=== PATIENT | female | born 1960 | race Caucasian/White ===

== ENCOUNTER 2017-10-19 13:56 | Inpatient (IN) ==
--- NOTE | 2017-10-19 14:33 | Emergency Department Report ---
General Adult HPI - General Chief complaint: Dizziness Stated complaint: N/V & Dizziness Time Seen by Provider: 10/19/17 14:26 Source: patient Mode of arrival: ambulatory Limitations: no limitations - History of Present Illness HPI narrative: 56 yo female who lives in [facility] but who has been camping at [place] since Day presents to ED w/ n/v for the past few days. Severe R shoulder pain with radiation down the R arm. Can't keep her pain meds down. Has OA and RA. Dizziness - room is spinning - causes n/v. Bit by a tick a week ago. Can't keep anything down for a couple days. Coughing this week. Wheezing in L lung today. Reports low grade fever this week. Feels very week. Requests hospitalization. Is scared b/c she doesn't know what is wrong with her. - Related Data Home Medications Medication Instructions Recorded Confirmed Baclofen [Lioresal] 10 mg PO TID PRN 10/19/17 10/19/17 Dexlansoprazole [Dexilant] 60 mg PO DAILY 10/19/17 10/19/17 Gabapentin [Neurontin] 800 mg PO TID 10/19/17 10/19/17 Ondansetron [Ondansetron Odt] 8 mg PO TID PRN 10/19/17 10/19/17 Oxycodone/Apap 10/325 [Percocet 1 tab PO Q6H PRN 10/19/17 10/19/17 10/325] Zolpidem [Ambien] 10 mg PO HS 10/19/17 10/19/17 Allergies Allergy/AdvReac Type Severity Reaction Status Date / Time Penicillins Allergy Unknown HIVES Verified 10/19/17 14:59 prednisone Allergy Unknown UPSET Verified 10/19/17 14:59 STOMACH Sulfa (Sulfonamide Allergy Unknown HIVES Verified 10/19/17 14:59 Antibiotics) Review of Systems All systems: reviewed and negative except as stated (n/v, dizziness, R shoulder pain - keeps her up at night, wheezing) PFSH Medical History Updates: COPD, RA/OA, GERD, osteoporosis Surgical History: hyst with [facility], JOSE JUAN, appy Family History: F - - heart probs M - - heart probs brother - heart probs, DM on insulin sister - Type 2 DM brother - from heart probs. Had pacer. - Social History Smoking status: Current every day smoker (1/2ppd) Substance use type: other (uses CBD through food for pain - "occasional" - not daily use.) Alcohol intake frequency: does not drink Household members: none Current occupational status: disabled Current residence: Apartment/Private Home Social history: Angela Mathew, ([employer] or PA?) at [facility] ([facility])- rheum Dr. Valdez ([facility]) [facility] [place] [facility] . Physical Exam - Limitations Limitations: no limitations - General General appearance: in no apparent distress - Normal Exams: Head:: Normocephalic without trauma Eyes:: Pupils are PERRLA w/ EOMI Neck:: Full range of motion, without adenopathy Cardiovascular:: capillary refill Abdomen:: soft, non-tender, non-distended Integumentary:: No rashes Neurological:: Patient is alert, and oriented, exams w/o gross deficits Psychiatric:: Patient exhibits, appropriate attention - Respiratory Respiratory exam: Present: wheezes (diffuse insp and exp prior to Duoneb tx) - Cardiovascular Cardiovascular exam: Present: tachycardia (mild) - Skin Skin exam: Present: other (L hip -slightly erythematous, raised area where she pulled off tick.) Medical Decision Making - [facility] Narrative Medical decision making narrative: Patient received a liter of normal saline in the ER. She was started on Levaquin 750 mg IV for pneumonia. She was given Zofran IV and this helped with her nausea. She is also given 1 dose of meclizine for her vertigo. Duoneb tx given. CXR showed pneumonia vs tumor. Admit to hospitalist service for further tx/monitoring and CT chest. - Lab Data Result diagrams: 10/22/17 05:48 10/22/17 05:48 Disposition Clinical Impression: Pneumonia Disposition: 02 To [facility] Acute Care Condition: Stable Time of Disposition: 16:05 - Seen By: midlevel
[2017-10-19] MEDS ORDERED: ONDANSETRON 4 MG/2 ML INJECTION IVP ONE (14:35)
[2017-10-19] MEDS ORDERED: NS 1,000 ML IV ONE (14:35)
--- OUTSIDE RECORDS SUMMARY | 2017-10-19 14:43 | External Medical Summary ---
:1960 Author Name GENERATED, SYSTEM Care Team Providers Name Role Phone GRACIE SERRANO KIMBERLEY Primary Care Provider [phone] Reason For Visit Chief Complaint 625.9, FEMALE PELVIC PAIN Social History Functional Status Vital Signs Results Problems Encounter Diagnosis No relevant problems exist. Additional Problems Arthroplasty of Knee Comment:Problem resolved by [facility] Workflow upon Discharge , Status:Resolved.Chronic Obstructive Lung Disease Comment:Problem resolved by [facility] Workflow upon Discharge, Status:Resolved.Pneumonia Comment:Problem resolved by [facility] Workflow upon Discharge, Status:Resolved. Encounters Encounter Diagnosis No relevant problems exist. Plan of Care Procedures Completed , on 09/05/2011 12:00 AM Immunizations No immunizations administered or ordered. Hospital Course Hospital Discharge Instructions Allergies, Adverse Reactions, Alerts Escitalopram oxalate causes Abdominal pain, vomiting.Prednisone causes hard on stomach.Codeine causes severe nausea.Aspirin causes severe nausea.escitalopram causes unspecified.Latex causes Rash.Penicillins causes unspecified.Sulfa (Sulfonamide Antibiotics) causes unspecified.Latex Allergy has not been assessed.IV Contrast Allergy has not been assessed.No Known Food Allergies. Medication Medication reconciliation has not been performed.
--- OUTSIDE RECORDS SUMMARY | 2017-10-19 14:43 | External Medical Summary ---
:1960 Author Organization [employer] Care Team Providers Name Role Phone Cris Mathew Provider Role Unavailable Allergies, Adverse Reactions, Alerts Substance Reaction Event Type SULFA Info Not Available Drug Allergy PredniSONE Info Not Available Drug Allergy Penicillin G Benzathine Info Not Available Drug Allergy Codeine Sulfate Info Not Available Drug Allergy Problems Problem Type Condition Code Onset Dates Condition Status Assessment Spinal stenosis of lumbar region M48.06 Active Problem Spinal stenosis of lumbar region M48.06 Active Problem Tobacco use 305.1 Active Problem DDD (degenerative disc disease), M51.36 Active lumbar Assessment Herpes zoster B02.9 Active Assessment DDD (degenerative disc disease), M51.36 Active lumbar Problem COPD (chronic obstructive pulmonary 496 Active disease) Problem Depression 311 Active Medications Medication Code Code Instructions Start End Status Dosage System Date Date Percocet [facility] [address]-12 10-325 MG 1 tablet as Orally every 6 needed hrs Ambien [facility] [address]-25 10 MG Orally at 1 tablet bedtime Zofran ODT [facility] [address]-18 8 MG Orally August as directed every 6 to 8 2014 hours Lamotrigine ND 0 200 MG Orally 1 tablet once a day Ibuprofen [facility] [address]-20 800 MG Orally 1 tablet Three times a day Lidocaine [facility] [address]-43 5 % Externally Mar 10, 1 patch to Once a day 2014 skin remove after 12 hours Tizanidine HCl [facility] 85379689162 4 MG Orally 2 tablets twice a day HydrOXYzine [facility] [address]-54 50 MG Orally not defined HCl three times daily Cymbalta [facility] [address]-11 30 MG Orally 1 capsule Twice a day Lyrica [facility] [address]-45 150 MG Orally Jan 14, 1 capsule Twice a day 2014 Latuda [facility] [address]-63 60 MG Orally 1 tablet Once a day with food Procedures Procedure Coding System Code Date THERPROPHDIAG INJ, SCIM CPT-4 22561 Mar 10, 2015 OFFICE VISIT EST PATIENT LEVEL 3 CPT-4 61398 Mar 10, 2015 METHYLPREDNISOLONE 80 MG INJ CPT-4 J1040 Mar 10, 2015 Vital Signs Date/Time: Mar 10, 2015 BMI 20.26 Index Weight 114.4 lbs Height 63 in Blood Pressure Diastolic 64 mm Hg Blood Pressure Systolic 102 mm Hg Cardiac Monitoring Heart Rate 84 /min Temperature 98.0 F Respiratory Rate 20 /min Results No Known Results Summary Purpose eClinicalWorks Submission
--- OUTSIDE RECORDS SUMMARY | 2017-10-19 14:43 | External Medical Summary ---
:1960 Author Organization [employer] Care Team Providers Name Role Phone Cris Mathew Provider Role Unavailable Allergies No Known Allergies Problems Problem Type Condition Code Onset Dates Condition Status Problem Iron deficiency anemia D50.9 Active Problem Hepatitis C B19.20 Active Problem Depression F32.9 Active Problem Spinal stenosis of lumbar region M48.06 Active Problem COPD (chronic obstructive pulmonary J44.9 Active disease) Problem DDD (degenerative disc disease), M51.36 Active lumbar Medications Medication Code System Code Instructions Start Date End Date Status Dosage Percocet [facility] [address]97-542 10-325 MG Orally Sept 13, Oct , 1 tablet as 8-30 every 12 hours 2015 2015 needed Results No Known Results Summary Purpose eClinicalWorks Submission
--- OUTSIDE RECORDS SUMMARY | 2017-10-19 14:43 | External Medical Summary ---
:1960 Author Organization [employer] Care Team Providers Name Role Phone Sherry Garner Provider Role Unavailable Allergies No Known Allergies Problems Problem Type Condition ICD-9 Code Onset Dates Condition Status Problem Tobacco use 305.1 Active Problem COPD (chronic obstructive 496 Active pulmonary disease) Problem DDD (degenerative disc disease) 722.6 Active Problem Depression 311 Active Medications No Known Medications Results No Known Results Summary Purpose eClinicalWorks Submission
--- OUTSIDE RECORDS SUMMARY | 2017-10-19 14:43 | External Medical Summary ---
:1960 Author Organization [employer] Care Team Providers Name Role Phone Cris Mathew Provider Role Unavailable Allergies No Known Allergies Problems Problem Type Condition ICD-9 Code Onset Dates Condition Status Problem Tobacco use 305.1 Active Problem COPD (chronic obstructive 496 Active pulmonary disease) Problem DDD (degenerative disc disease) 722.6 Active Problem Depression 311 Active Medications Medication Code System Code Instructions Start Date End Date Status Dosage Percocet [facility] 26875-440 7.5-325 MG Orally October 27, November 11, 1 tablet as 2-72 every 6 hrs 2014 2014 needed Results No Known Results Summary Purpose eClinicalWorks Submission
--- OUTSIDE RECORDS SUMMARY | 2017-10-19 14:43 | External Medical Summary ---
:1960 Author Organization [employer] Care Team Providers Name Role Phone Cris Mathew Provider Role Unavailable Allergies No Known Allergies Problems Problem Type Condition Code Onset Dates Condition Status Problem COPD (chronic obstructive pulmonary J44.9 Active disease) Problem Iron deficiency E61.1 Active Problem Hepatitis C B19.20 Active Problem Depression 311 Active Problem DDD (degenerative disc disease), M51.36 Active lumbar Problem Spinal stenosis of lumbar region M48.06 Active Medications No Known Medications Results No Known Results Summary Purpose eClinicalWorks Submission
--- OUTSIDE RECORDS SUMMARY | 2017-10-19 14:43 | External Medical Summary ---
:1960 Author Organization [employer] Care Team Providers Name Role Phone Sherry Garner Provider Role Unavailable Allergies, Adverse Reactions, Alerts Substance Reaction Event Type SULFA Info Not Available Drug Allergy PredniSONE Info Not Available Drug Allergy Penicillin G Benzathine Info Not Available Drug Allergy Codeine Sulfate Info Not Available Drug Allergy Problems Problem Type Condition ICD-9 Code Onset Dates Condition Status Problem Tobacco use 305.1 Active Problem COPD (chronic obstructive 496 Active pulmonary disease) Problem DDD (degenerative disc disease) 722.6 Active Assessment RUQ abdominal pain 789.01 Active Assessment Nausea & vomiting 787.01 Active Problem Depression 311 Active Assessment Dysuria 788.1 Active Medications Medication Code Code Instructions Start End Date Status Dosage System Date Zofran ODT [facility] 41368-93 8 MG Orally August 22, as directed 70-00 every 6 to 8 2015 hours Lamotrigine NDC 0 200 MG Orally 1 [place] [address]-12 10 MG Orally at 1 tablet 21-31 [place] [address]-03 not defined 90-52 [place] [address]-81 150 MG Orally August 22, 1 capsule 16-41 Twice a day 2014 Latuda [facility] 80990-51 60 MG Orally 1 tablet 06-01 Once [place] [address]-96 100-50 MCG/DOSE 1 puff 95-00 [place] [address]-26 30 MG Orally 1 capsule 43-56 [place] [address]-79 600 MG Orally 1 tablet 58-00 Three times a day Procedures Procedure Coding System Code Date URINE CULTURE/COLONY COUNT.AMS CPT-4 99668 October 17, 2014 OFFICE VISIT EST PATIENT LEVEL 3 CPT-4 56221 October 17, 2014 URINALYSIS NONAUTO WO SCOPE CPT-4 64515 October 17, 2014 Vital Signs Date/Time: October 17, 2014 BMI 20.83 Index Weight 117.6 lbs Height 63 in Blood Pressure Diastolic 74 mm Hg Blood Pressure Systolic 136 mm Hg Cardiac Monitoring Heart Rate 80 /min Temperature 98.3 F Respiratory Rate 20 /min Results Name Result Date Reference Range Unit Abnormality Flag Urinalysis (UA) Summary Purpose eClinicalWorks Submission
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
--- OUTSIDE RECORDS SUMMARY | 2017-10-19 14:43 | External Medical Summary | Summary of Care ---
:1960 Author Name Haris Del Castillo M.D. Address [address] [place], [place] [id number] Care Team Providers Name Role Phone Sukhjinder Figueroa M.D. Unavailable Unavailable Dominic Valdovinos Primary Care Provider Unavailable Unavailable Unavailable Unavailable Functional Status Functional Status Health Issues Name Dates Details Functional status health issues are not documented Status: Cognitive Status Health Issues Name Dates Details Cognitive status health issues are not documented Status: Problems Name Dates Details Elbow pain (719.42, M25.529) Status: Active Joint pain, knee (719.46, M25.569) Status: Active Coughing blood (786.30, R04.2) Status: Active Pain in hand (729.5, M79.643) Status: Active Nausea (787.02, R11.0) Status: Active Abdominal pain (789.00, R10.9) Status: Active Osteoporosis (733.00, M81.0) Status: Active Rheumatoid arthritis (714.0, M06.9) Status: Active Tendonitis (726.90, M77.9) Status: Active Lateral epicondylitis (726.32, M77.10) Status: Active Acute bronchitis (466.0, J20.9) Status: Active Hypocalcemia (275.41, E83.51) Status: Active Chronic obstructive pulmonary disease (496, J44.9) Status: Active Medial epicondylitis (726.31, M77.00) Status: Active 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, 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: Active Cerumen impaction (380.4, H61.20) Status: Active 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, 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 Compression fracture of thoracic vertebra (805.2, S22.000A) Status: Active Bipolar disorder (296.80, F31.9) Status: Active High risk medication use (V58.69, Z79.899) Status: Active Rheumatoid arthritis (714.0, M06.9) Status: Active Synovitis of hip (727.09, M65.9) Status: Active Aftercare following joint replacement (V54.81, Z47.1) Status: Active Fatigue (780.79, R53.83) Status: Active Hypercholesterolemia (272.0, E78.0) Status: Active S/P knee replacement (V43.65, Z96.659) Status: Active Cervicalgia (723.1, M54.2) Status: Active Muscle spasm (728.85, M62.838) Status: Active Head ache (784.0, R51) Status: Active Back pain (724.5, M54.9) Status: Active Chronic pain (338.29, G89.29) Status: Active Hip joint pain (719.45, M25.559) Status: Active Hip pain (719.45, M25.559) Status: Active Pain in left hip (719.45, M25.552) Status: Active Lower back pain (724.2, M54.5) Status: Active Chest pain (786.50, R07.9) Status: Active Tobacco abuse counseling (V65.42, Z71.6) Status: Active Arthralgia of multiple sites (719.49, M25.50) Status: Active Bursitis of hip (726.5, M70.70) Status: Active Knee pain, right (719.46, M25.561) Status: Active Anserine bursitis (726.61, M71.50) Status: Active Osteoarthritis of knee (715.96, M17.9) Status: Active Medications Name Dates Details Abilify 15 MG Oral Tablet Refills: 0 Sukhjinder Figueroa M.D. Started 01-Jul-2008 ActiveZolpidem Tartrate 10 MG Oral Tablet TAKE 1 TABLET AT BEDTIME NEEDED FOR SLEEP. Quantity: 30 Refills: 1 Started 28-Apr-2011 ActiveIbuprofen 600 MG Oral Tablet TAKE 1 TABLET TWICE A DAY WITH MEALS Quantity: 60 Refills: 0 Sukhjinder Figueroa M.D. Started 30-May-2011 ActiveVoltaren 1 % Transdermal Gel Apply 4 grams to affected area QID Quantity: 5 Refills: 0 Sukhjinder Figueroa M.D. Started 07-Mar-2013 [id number] GM Tube HydrOXYzine HCl - 10 MG Oral Tablet Take 1 tablet daily Refills: 0 Sukhjinder Figueroa M.D. Started 07-Mar-2013 ActiveGabapentin 300 MG Oral Capsule TAKE 2 CAPSULES 3 TIMES DAILY. Refills: 0 Started 13-May-2014 ActiveTiZANidine HCl - 4 MG Oral Tablet TAKE 1 TABLET 3 TIMES DAILY NEEDED. Refills: 0 Started 13-May-2014 Active Allergies and Adverse Reactions Name Dates Details TBE Status: Active Codeine Derivatives Status: Active Ibuprofen TABS Status: Active Penicillins Status: Active Sulfa Drugs Status: Active Past Medical History Name Dates Details Aftercare following joint replacement (V54.81, Z47.1) Status: Active Procedures Procedure Dates Details History of Knee Arthroscopy With Limited Completed:22-Jun-2011 Synovectomy History of Appendectomy History of Hysterectomy CP Echo Ordered:31-Mar-2014 ORTHO KNEE RIGHT (3 VIEWS ONLY) Ordered:15-May-2014 ORTHO KNEE LEFT Ordered:15-May-2014 Immunization Name Dates Details Fluzone Quadrivalent 0.5 ML Intramuscular Suspension Administered on:Feb-2014 Lot #: [id number] Family History Unknown Family Member Name Dates Details Family history of cardiac disorder (V17.49, Z82.49) Comments: Family History Status: Active Mother Name Dates Details Family history of Status: Active Family history of cardiac disorder (V17.49, Z82.49) Status: Active Father Name Dates Details Family history of Status: Active Social History Name Dates Details Smoking StatusCurrent every day smoker Vital Signs Date Test Result Details 13-May-2014 10:03 BP Systolic 122 mm[Hg] Status: BP Diastolic 68 mm[Hg] Status: Heart Rate 72 /min Status: Weight 126 lb Status: Height 63 in Status: Body Mass Index Calculated 22.32 kg/m2 Status: Body Surface Area Calculated 1.59 m2 Status: Results Date Description Value Details Results not documented Plan of Care Planned Observations Name Dates Details Planned Goals not documented Goal Planned Encounters Appointment; Provider: Dominic Pierce On 21-Dec-2017 09:00 Appointment; Provider: Sukhjinder Figueroa On 28-Aug-2014 10:15 Appointment; Provider: Sukhjinder Figueroa On 23-May-2014 09:45 Appointment; Provider: Dominic Pierce On 22-May-2014 09:15 Appointment; Provider: Dominic Pierce On 05-Sep-2011 08:00 Appointment; Provider: Elisha Ruvalcaba On 16-Sep-2009 07:00 Appointment; Provider: Elisha Ruvalcaba On 28-Aug-2009 09:30 Appointment; Provider: Florentin Redding On 11-Aug-2008 14:15 Appointment; Provider: Florentin Redding On 28-Jul-2008 14:15 Appointment; Provider: Florentin Redding On 14-Jul-2008 14:15 Appointment; Provider: Rodrigo Lopez On 30-Jun-2007 07:00 Instructions Instructions not documented Encounters Appointment; Dominic Pierce On 15-May-2014 Encounter Diagnosis: Problem not documented 14:30 Appointment; Sukhjinder Figueroa On 13-May-2014 Encounter Diagnosis: Problem not documented 09:45 Appointment; Sukhjinder Figueroa On 01-Apr-2014 Encounter Diagnosis: Problem not documented 14:00 Appointment; Haris Del Castillo On 26-Mar-2014 Encounter Diagnosis: Problem not documented 10:15 Appointment; Sukhjinder Figueroa On 27-Feb-2014 Encounter Diagnosis: Problem not documented 14:00 Appointment; Dominic Pierce On 18-Feb-2014 Encounter Diagnosis: Problem not documented 10:30 Appointment; Gallo Krause On 14-Feb-2014 Encounter Diagnosis: Problem not documented 08:15 Appointment; Sukhjinder Figueroa On 14-Feb-2014 Encounter Diagnosis: Problem not documented 07:45 Appointment; Sukhjinder Figueroa On Encounter Diagnosis: Problem not documented 09:15 Appointment; Sukhjinder Figueroa On Encounter Diagnosis: Problem not documented 09:45 Appointment; Eleanor Carlton On Encounter Diagnosis: Problem not documented 16:30 Appointment; Eleanor Carlton On Encounter Diagnosis: Problem not documented 08:30 Appointment; Kerry Altman On 04-Oct-2013 Encounter Diagnosis: Problem not documented 09:30 Appointment; Sukhjinder Figueroa On 02-Oct-2013 Encounter Diagnosis: Problem not documented 10:00 Appointment; Kerry Altman On 25-Sep-2013 Encounter Diagnosis: Problem not documented 11:00 Appointment; Sukhjinder Figueroa On 23-Sep-2013 Encounter Diagnosis: Problem not documented 14:45 Appointment; Kerry Altman On 20-Sep-2013 Encounter Diagnosis: Problem not documented 07:30 Appointment; Kerry Altman On 18-Sep-2013 Encounter Diagnosis: Problem not documented 08:30 Appointment; Kerry Altman On 11-Sep-2013 Encounter Diagnosis: Problem not documented 10:00 Appointment; Dominic Pierce On 22-Aug-2013 Encounter Diagnosis: Problem not documented 13:45 Appointment; Sukhjinder Figueroa On 01-Jul-2013 Encounter Diagnosis: Problem not documented 14:30 Appointment; Dominic Pierce On 21-May-2013 Encounter Diagnosis: Problem not documented 13:00 Appointment; Eleanor Carlton On 30-Apr-2013 Encounter Diagnosis: Problem not documented 09:30 Appointment; Rafi Modi On 23-Apr-2013 Encounter Diagnosis: Problem not documented 14:30 Appointment; Sukhjinder Figueroa On 23-Apr-2013 Encounter Diagnosis: Problem not documented 13:15 Appointment; Sukhjinder Figueroa On 16-Apr-2013 Encounter Diagnosis: Problem not documented 12:30 Appointment; Rafi Modi On 10-Apr-2013 Encounter Diagnosis: Problem not documented 14:30 Appointment; Dominic Pierce On 09-Apr-2013 Encounter Diagnosis: Problem not documented 11:00 Appointment; Dominic Pierce On 26-Mar-2013 Encounter Diagnosis: Problem not documented 09:45 Appointment; Freedom Douglass On 14-Mar-2013 Encounter Diagnosis: Problem not documented 09:00 Appointment; Sukhjinder Figueroa On 07-Mar-2013 Encounter Diagnosis: Problem not documented 10:45 Appointment; Dominic Pierce On 08-Jan-2013 Encounter Diagnosis: Problem not documented 16:00 Appointment; Sukhjinder Figueroa On 25-Dec-2012 Encounter Diagnosis: Problem not documented 10:30 Appointment; Dominic Pierce On 20-Dec-2012 Encounter Diagnosis: Problem not documented 10:45 Appointment; Sukhjinder Figueroa On 18-Dec-2012 Encounter Diagnosis: Problem not documented 07:30 Appointment; Sukhjinder Figueroa On 17-Dec-2012 Encounter Diagnosis: Problem not documented 08:45 Appointment; Sukhjinder Figueroa On 17-Sep-2012 Encounter Diagnosis: Problem not documented 10:45 Appointment; Freedom Douglass On 27-Aug-2012 Encounter Diagnosis: Problem not documented 13:45 Appointment; Sukhjinder Figueroa On 16-Aug-2012 Encounter Diagnosis: Problem not documented 08:30 Appointment; Sukhjinder Figueroa On 26-Jul-2012 Encounter Diagnosis: Problem not documented 09:30 Appointment; Sukhjinder Figueroa On 10-Jul-2012 Encounter Diagnosis: Problem not documented 10:15 Appointment; Sukhjinder Figueroa On 23-May-2012 Encounter Diagnosis: Problem not documented 13:45
--- OUTSIDE RECORDS SUMMARY | 2017-10-19 14:43 | External Medical Summary ---
[...] ICD-9 Code Onset Dates Condition Status Problem COPD (chronic obstructive 496 Active pulmonary disease) Problem Depression 311 Active Problem Tobacco use 305.1 Active Assessment Tobacco use 305.1 Active Assessment Chronic pain 338.29 Active Assessment Fibromyalgia 729.1 Active Medications Medication Code Code Instructions Start End Date Status Dosage System Date Ambien [facility] 38028-13 10 MG Orally at 1 tablet -31 bedtime Lamotrigine NDC 0 200 MG Orally 1 tablet once a day Ibuprofen NDC 03382-28 800 MG Orally 1 tablet 62-00 Three times [place] [address]-17 50 MG Orally not defined 62-01 [place] [address]-76 60 MG Orally 1 tablet 06-01 Once a day with food Zofran ODT NDC 61465-49 8 MG Orally August 22, as directed 70-00 every 6 to 8 2015 [place] [address]-51 4 MG Orally 1 tablet as 00-10 twice [place] [address]-20 10-325 MG Orally Jan 05, Jan 15, 1 tablet as 18-30 every 6 hrs 2014 2014 [place] [address]-40 30 MG Orally 1 capsule 40-01 [place] [address]-87 150 MG Orally Jan 14, 1 capsule 16-41 Twice a day 2014 Nicoderm CQ NDC 44278-35 21 MG/24HR Jan 14, Feb 13, 1 patch to 45-01 Transdermal Once 2014 2014 [place] [address]-21 4 MG Jan 14, Feb 13, 1 piece as Starter Kit 58-07 Mouth/Throat 24 2014 2014 needed time(s) a day Procedures Procedure Coding System Code Date OFFICE VISIT EST PATIENT LEVEL 3 CPT-4 66983 Jan 14, 2015 Vital Signs Date/Time: Jan 14, 2015 BMI 19.94 Index Weight 112.6 lbs Height 63 in Blood Pressure Diastolic 72 mm Hg Blood Pressure Systolic 124 mm Hg Cardiac Monitoring Heart Rate 78 /min Temperature 98.4 F Respiratory Rate 18 /min Results No Known Results Summary Purpose eClinicalWorks Submission
--- OUTSIDE RECORDS SUMMARY | 2017-10-19 14:43 | External Medical Summary | Summary of Care ---
:1960 Author Name Haris Del Castillo M.D. Address [address] [place], [place] [id number] Care Team Providers Name Role Phone Sukhjinder [...] Refills: 0 Sukhjinder Figueroa M.D. Started 07-Mar-2013 [id number] GM Tube HydrOXYzine HCl - 10 MG [...] ML Intramuscular Suspension Administered on:Feb-2014 Lot #: [id number] Family History Unknown Family Member Name Dates [...]
[2017-10-19] MEDS: SALINE FLUSH 10ml SYRINGE IVF PRN ×2 (14:44→17:12)
--- OUTSIDE RECORDS SUMMARY | 2017-10-19 14:44 | External Medical Summary ---
[...] Condition Code Onset Dates Condition Status Assessment Encounter for immunization Z23 Active Assessment COPD (chronic obstructive pulmonary J44.9 Active disease) Assessment Iron deficiency E61.1 Active Assessment DDD (degenerative disc disease), M51.36 Active lumbar Problem COPD (chronic obstructive pulmonary J44.9 Active disease) Problem Iron deficiency E61.1 Active Problem Hepatitis C B19.20 Active Problem Depression 311 Active Assessment Hepatitis C B19.20 Active Problem DDD (degenerative disc disease), M51.36 Active lumbar Problem Spinal stenosis of lumbar region M48.06 Active Medications Medication Code Code Instructions Start End Status Dosage System Date Date Percocet [facility] [address]-63 10-325 MG Jan 05Jan 1 tablet as Orally every 2014 10, needed hrs 2014 Ibuprofen [facility] [address]-58 800 MG Orally 1 tablet Three times a day Cymbalta [facility] [address]-88 30 MG Orally 1 capsule Twice a day Lidocaine [facility] [address]-84 5 % Externally Mar 10, 1 patch to Once a day 2014 skin remove after 12 hours Zofran ODT [facility] [address]-97 8 MG Orally August as directed every 6 to 8 , 2014 hours Latuda [facility] [address]-58 60 MG Orally 1 tablet Once a day with food Lamotrigine ND 0 200 MG Orally 1 tablet once a day HydrOXYzine [facility] [address]-84 50 MG Orally not defined HCl three times daily Lyrica [facility] [address]-24 150 MG Orally Jan 14, 1 capsule Twice a day 2014 Ventolin HFA [facility] [address]-47 108 (90 Base) Dec 07, 2 puffs as MCG/ACT 2014 needed Inhalation every 4 hrs Tizanidine HCl [facility] 15455336532 4 MG Orally 2 tablets twice a day Percocet [facility] [address]-01 10-325 MG 1 tablet as Orally every 6 needed hrs Ambien [facility] [address]-09 10 MG Orally at 1 tablet bedtime Procedures Procedure Coding System Code Date *Fluzone, quad, 3+ yrs, 0.5mL, any insurance CPT-4 79512 Apr 13, 2015 IMMUNIZATION ADMIN CPT-4 80531 Apr 13, 2015 OFFICE VISIT EST PATIENT LEVEL 3 CPT-4 41968 Apr 13, 2015 IMMUNIZATION ADMIN, EACH ADD CPT-4 01723 Apr 13, 2015 *Pneumococcal 23 valent, Adult only (PPV23) CPT-4 27448 Apr 13, 2015 Vital Signs Date/Time: Apr 13, 2015 BMI 18.49 Index Weight 104.4 lbs Height 63 in Blood Pressure Diastolic 72 mm Hg Blood Pressure Systolic 126 mm Hg Cardiac Monitoring Heart Rate 82 /min Temperature 98.8 F Respiratory Rate 18 /min Results Name Result Date Reference Range Unit Abnormality Flag OTHER-IMMUNIZATION ADMIN, EACH ADD Immunizations Vaccine Administration Date *Fluzone, quad, 3+ yrs, 0.5mL, any insurance Apr 13, 2015 *Pneumococcal 23 valent, Adult only (PPV23) Apr 13, 2015 Summary Purpose eClinicalWorks Submission
--- OUTSIDE RECORDS SUMMARY | 2017-10-19 14:44 | External Medical Summary ---
[...] ICD-9 Code Onset Dates Condition Status Problem Depression 311 Active Assessment COPD (chronic obstructive 496 Active pulmonary disease) Problem COPD (chronic obstructive 496 Active pulmonary disease) Assessment Pneumonia 486 Active Assessment Depression 311 Active Medications Medication Code Code Instructions Start End Date Status Dosage System Date Nicotine Step 1 [facility] 73159-86 21 MG/24HR May 29, Jun 28, Active 1 patch to 989 Transdermal Once 2014 2014 skin a day Albuterol ND 0 Active not defined Advair Diskus [facility] 66562-75 100-50 MCG/DOSE Active 1 puff 95-00 [place] [address]-50 10 MG Orally at Active 1 tablet 21-31 bedtime Duloxetine HCl [facility] 10768-17 30 MG Orally Active 1 capsule 43-56 [place] [address]-07 200 MG Orally May 29, Jun 12, Active 1 capsule 48-01 Three times a 2014 2014 [place] [address]-42 600 MG Orally Active 1 tablet 58-00 Three times a day Lamotrigine ND 0 200 MG Orally Active 1 tablet [place] [address]-75 4 MG Orally Active 2 tablets 00-10 [place] [address]-37 300 MG Orally Active 2 tablets 39-19 twice a day Latuda [facility] 86148-37 60 MG Orally Active 1 tablet 06-01 Once a day with food Cipro NDC 34210-52 500 MG Orally Active 1 tablet 67-01 Twice a day Procedures Procedure Coding System Code Date COMPLETE CBC W/AUTO DIFF WBC.[facility] CPT-4 93463 May 29, 2014 Metabolic Panel Total Ca.[facility] CPT-4 98058 May 29, 2014 OFFICE VISIT NEW PATIENT LEVEL 2 CPT-4 57384 May 29, 2014 ROUTINE VENIPUNCTURE CPT-4 96603 May 29, 2014 Vital Signs Date/Time: May 29, 2014 BMI 21.47 Index Weight 121.2 lbs Height 63 in Blood Pressure Diastolic 76 mm Hg Blood Pressure Systolic 116 mm Hg Cardiac Monitoring Heart Rate 80 /min Temperature 98.1 F Oximetry 97 % Respiratory Rate 20 /min Results Name Result Date Reference Range Unit Venipuncture Summary Purpose eClinicalWorks Submission
--- OUTSIDE RECORDS SUMMARY | 2017-10-19 14:44 | External Medical Summary ---
:1960 Author Organization [facility] Address [address] [place], [place] [address] Care Team Providers Name Role Phone Holly Mathewley Unavailable Unavailable PROBLEMS Type Condition ICD9-CM Code HEL48-UE Code Onset Condition SNOMED Code Dates Status Problem Spinal stenosis M48.06 Active 43462352 of lumbar region Problem COPD (chronic J44.9 Active 64244837 obstructive pulmonary disease) Problem DDD (degenerative M51.36 Active 26262112 disc disease), lumbar Problem Fibromyalgia M79.7 Active 072137778 Problem GERD K21.9 Active 393768516 (gastroesophageal reflux disease) Problem Iron deficiency D50.9 Active 56531781 anemia Problem Hepatitis C B19.20 Active 46560766 Problem Cigarette F17.210 Active 454608907 nicotine dependence Problem Depression F32.9 Active 539470801 ALLERGIES Unknown Allergies SOCIAL HISTORY No smoking Hx information available PLAN OF CARE VITAL SIGNS MEDICATIONS Unknown Medications RESULTS No Results PROCEDURES No Known procedures IMMUNIZATIONS No Known Immunizations
--- OUTSIDE RECORDS SUMMARY | 2017-10-19 14:44 | External Medical Summary ---
:1960 Author Organization [facility] Address [address], [place] [address] Care Team Providers Name Role Phone Cris Mathew Unavailable Unavailable PROBLEMS ALLERGIES No Information ENCOUNTERS IMMUNIZATIONS No Known Immunizations SOCIAL HISTORY No smoking Hx information available REASON FOR VISIT PLAN OF CARE VITAL SIGNS MEDICATIONS Unknown Medications RESULTS No Results PROCEDURES No Known procedures INSTRUCTIONS MEDICATIONS ADMINISTERED No Known Medications MEDICAL (GENERAL) HISTORY
--- OUTSIDE RECORDS SUMMARY | 2017-10-19 14:44 | External Medical Summary | Summary of Care ---
:1960 Author Name Berny Gallo Address [address] [place], [place] [address] Care Team Providers Name Role Phone Sukhjinder [...] Refills: 0 Sukhjinder Figueroa M.D. Started 07-Mar-2013 [id number] GM Tube HydrOXYzine HCl - 10 MG Oral Tablet Take 1 tablet daily Refills: 0 Sukhjinder Figueroa M.D. Started 07-Mar-2013 ActiveGabapentin 300 MG Oral Capsule TAKE 2 CAPSULES 3 TIMES DAILY. Refills: 0 Started 13-May-2014 ActiveTiZANidine HCl - 4 MG Oral Tablet TAKE 1 TABLET 3 TIMES DAILY NEEDED. Refills: 0 Started 13-May-2014 Active Allergies and Adverse Reactions Name Dates Details TBEC Status: Active Codeine Derivatives Status: Active Ibuprofen [...] ML Intramuscular Suspension Administered on:Feb-2014 Lot #: [id number] Family History Unknown Family Member Name Dates [...] Sukhjinder Figueroa On 28-Aug-2014 10:15 Appointment; Provider: Dominic Pierce On 05-Sep-2011 08:00 Appointment; Provider: Elisha Ruvalcaba On 16-Sep-2009 07:00 Appointment; Provider: Elisha Ruvalcaba On 28-Aug-2009 09:30 Appointment; Provider: Florentin Redding On 11-Aug-2008 14:15 Appointment; Provider: Florentin Redding On 28-Jul-2008 14:15 Appointment; Provider: Florentin Redding On 14-Jul-2008 14:15 Appointment; Provider: Rodrigo Lpoez On 30-Jun-2007 07:00 Instructions Instructions not documented [...]
--- OUTSIDE RECORDS SUMMARY | 2017-10-19 14:44 | External Medical Summary ---
:1960 Author Name [employer] Care Team Providers Name Role Phone GRACIE SERRANO KIMBERLEY Primary Care Provider [phone] Reason For Visit Chief Complaint LEFT FLANK PAIN Social History Functional Status Vital Signs Results Chemistry from 03/08/2015 7:45 [id number] MMOL/L (136-145 MMOL/L) POTASSIUM3.9 MMOL/L (3.5-5.1 MMOL/L) LFOBQCUD211 MMOL/L (98-107 MMOL/L) MFQ984.1 MMOL/L (21.0-32.0 MMOL/L) *ANION GAP9.9 MMOL/L (8.0-16.0 MMOL/L) BUN10 MG/DL (7-18 MG/DL) CREATININE1.06 MG/DL H (0.55-1.02 MG/DL) *BUN/CREATININE RATIO9.4 (9.1-17.0 ) ZTBANLT60 MG/DL (65-99 MG/DL) *GFR EST NON AFR IZINVHOK11 ML/MIN *GFRA EST AFR AMER70 ML/MIN CALCIUM9.7 MG/DL (8.5-10.1 MG/DL) BILIRUBIN TOTAL0.33 MG/DL (0.20-1.00 MG/DL) TOTAL PROTEIN8.3 GM/DL H (6.4-8.2 GM/DL) ALBUMIN3.7 GM/DL (3.4-5.0 GM/DL) *GLOBULIN4.6 GM/DL H (2.3-3.5 GM/DL) *A/G RATIO0.8 MG/DL L (1.5-2.2 MG/DL) ALK PHOS30 U/L L (46-116 U/L) ALT (SGPT)20 U/L (16-63 U/L) AST (SGOT)19 U/L (15-37 U/L) FTJMCTR20 U/L (25-115 U/L) LPPRGX60 U/L (73-393 U/L)Hematology from 03/08/2015 7:45 AMWBC7.5 X10e3/UL (3.6- 11.2 X10e3/UL) RBC4.25 X10e6/UL (3.63-4.92 X10e6/UL) HJOHYGNGKA38.9 G/DL (11.0-14.3 G/DL) DLIJUQIRLX64.2 % H (31.2-41.9 %) *MCV99.4 FL H (79.0-98.0 FL) *MCH32.8 PG (27.0-33.0 PG) *MCHC33.0 G/DL (32.0-36.0 G/DL) *RDW12.5 % (12.3-17.0 %) FQTQRVKZ658 X10e3/UL (159-386 X10e3/UL) *MPV7.6 FL (7.4-10.4 FL) AUTOMATED DIFFPERFORMED SEGS54.8 % *MRUSJCWTIMM98.2 % *MONOCYTES7.7 % *EOSINOPHILS3.0 % *BASOPHILS1.3 % *ABSOLUTE NEUTROPHILS4.10 X10e3/UL (1.80-7.80 X10e3/UL) *ABSOLUTE LYMPHOCYTES2.50 X10e3/UL (1.00-3.00 X10e3/UL) *ABSOLUTE MONOCYTES0.60 X10e3/UL (0.30-1.00 X10e3/UL) *ABSOLUTE EOSINOPHILS0.20 X10e3/UL (0.00-0.50 X10e3/UL) *ABSOLUTE BASOPHILS0.10 X10e3/UL (0.00-0.20 X10e3/UL)Urinalysis from 03/08/2015 8 :45 AM*URINE COLORYELLOW (STRAW/YELL/DK YELL ) *URINE APPEARANCECLEAR (CLEAR ) URINE PH6.0 (5.0-8.0 ) URINE SPECIFIC GRAVITY1.020 (<=1.005->=1.030 ) *URINE GLUCOSENEGATIVE MG/DL (NEGATIVE MG/DL) *URINE BILIRUBINNEGATIVE (NEGATIVE ) *URINE KETONESNEGATIVE MG/DL (NEGATIVE MG/DL) *URINE BLOODNEGATIVE (NEGATIVE ) *URINE PROTEINNEGATIVE MG/DL (NEGATIVE MG/DL) *URINE UROBILINOGEN0.2 EU/DL (0.2-1.0 EU/DL) *URINE NITRITESNEGATIVE (NEGATIVE ) *URINE LEUKOCYTESNEGATIVE (NEGATIVE )CT Scan from 03/08/2015 8:12 AMCT ABD/ PELVIS W/O CONTRASTHistory: Abdominal Pain . Left lower quadrant abdominal pain Priors: 11/27/2014 Findings: Abdomen Lung bases: Clear Liver: Normal density. No definable mass. Spleen: Normal. Pancreas: No discrete mass or inflammatory process. Gallbladder and biliary tract: No radiodense calculus or dilation. Adrenal glands: Normal. Kidneys: No nephrolithiasis. No Hydronephrosis. Urinary Bladder: Normal. Aorta: Normal in caliber. No periaortic lymphadenopathy. Bowel and Mesentery: Grossly normal. No findings of appendicitis. Ascites: None. Pelvis Lymphadenopathy: None. Reproductive: Unremarkable. Osseous Structures: No suspicious findings. Impression: Unremarkable CT scan of the abdomen and pelvis. Electronically signed by: Josemanuel Flor MD Dictated: 03/08/2015 08:23 Problems Encounter Diagnosis No relevant problems exist. [...]
--- OUTSIDE RECORDS SUMMARY | 2017-10-19 14:44 | External Medical Summary ---
:1960 Author Name [employer] Care Team Providers Name Role Phone GRACIE SERRANO KIMBERLEY Primary Care Provider [phone] Reason For Visit Chief Complaint 722.6,LUMBAR W/O CONTRAST Social History Functional Status Vital Signs Results [...]
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
--- OUTSIDE RECORDS SUMMARY | 2017-10-19 14:44 | External Medical Summary ---
:1960 Author Organization [employer] Care Team Providers Name Role Phone Cris Mathew Provider Role Unavailable Allergies No Known Allergies Problems Problem Type Condition Code Onset Dates Condition Status Problem Hepatitis C B19.20 Active Problem COPD (chronic obstructive pulmonary J44.9 Active disease) Problem Iron deficiency anemia D50.9 Active Problem Depression 311 Active Problem DDD (degenerative disc disease), M51.36 Active lumbar Problem Spinal stenosis of lumbar region M48.06 Active Medications Medication Code System Code Instructions Start Date End Date Status D[facility] [address] 10 MG Orally at 1 tablet -31 bedtime Results No Known Results Summary Purpose eClinicalWorks Submission
--- OUTSIDE RECORDS SUMMARY | 2017-10-19 14:44 | External Medical Summary ---
:1960 Author Name GENERATED, SYSTEM Care Team Providers Name Role Phone GRACIE SERRANO KIMBERLEY Primary Care Provider [phone] Reason For Visit Chief Complaint MIGRAINE Social History Functional Status Vital Signs Results [...] Hospital Discharge Instructions Allergies, Adverse Reactions, Alerts This section is artist's representative of the current allergy information, at the time of the CCD generation. In the case of regeneration of the CCD, the allergy information may not reflect the state of known allergies at the time of the CCD' s subject visit. Escitalopram oxalate causes Abdominal pain, vomiting.Prednisone causes hard on stomach.Codeine causes severe nausea.Aspirin causes severe nausea.escitalopram causes unspecified.Latex causes Rash.Penicillins causes unspecified.Sulfa (Sulfonamide Antibiotics) causes unspecified.IV Contrast Allergy has not been assessed.No Known Food Allergies. Medication Medication reconciliation has not been performed.
--- OUTSIDE RECORDS SUMMARY | 2017-10-19 14:44 | External Medical Summary ---
:1960 Author Organization [employer] Care Team Providers Name Role Phone Cris Mathew Provider Role Unavailable Allergies No Known Allergies Problems Problem Type Condition ICD-9 Code Onset Dates Condition Status Problem COPD (chronic obstructive 496 Active pulmonary disease) Problem Depression 311 Active Problem Tobacco use 305.1 Active Assessment Depression 311 Active Medications Medication Code Code Instructions Start End Date Status Dos[place] [address]-68 8 MG Orally August 22, as directed 70-00 every 6 to 8 2015 hours Lyrica NDC 56728-45 150 MG Orally August 22, 1 capsule 16-41 Twice a day 2014 Ibuprofen NDC 82530-46 800 MG Orally 1 tablet 62-00 [place] [address] 60 MG Orally 1 tablet 06-01 Once a day with food Cymbalta NDC 29661-68 30 MG Orally 1 capsule 40-01 Twice a day Lamotrigine NDC 0 200 MG Orally 1 [place] [address]-28 10-325 MG Orally Jan 05Jan 15, 1 tablet as 18-30 every 6 hrs 2014 2014 [place] [address] 10 MG Orally at 1 tablet 21-31 [place] [address] 50 MG Orally not defined 62-01 three times daily Procedures Procedure Coding System Code Date Behavior Intervention CPT-4 92837 Jan 05, 2015 Results No Known Results Summary Purpose eClinicalWorks Submission
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
--- OUTSIDE RECORDS SUMMARY | 2017-10-19 14:44 | External Medical Summary ---
[...] Instructions Start Date End Date Status [facility] [address] 10 MG Orally at 1 tablet -31 bedtime Results No Known Results Summary Purpose eClinicalWorks Submission
--- OUTSIDE RECORDS SUMMARY | 2017-10-19 14:44 | External Medical Summary ---
:1960 Author Organization [facility] Care Team Providers Name Role Phone Cris Mathew Provider Role Unavailable Allergies No Known Allergies Problems Problem Type Condition ICD-9 Code Onset Dates Condition Status Problem COPD (chronic obstructive 496 Active pulmonary disease) Problem Depression 311 Active Problem Tobacco use 305.1 Active Medications No Known Medications Results No Known Results Summary Purpose [employer] Submission
--- OUTSIDE RECORDS SUMMARY | 2017-10-19 14:44 | External Medical Summary ---
[...] Condition Code Onset Dates Condition Status Assessment Iron deficiency anemia D50.9 Active Assessment Encounter for immunization Z23 Active Problem Iron deficiency anemia D50.9 Active Problem Hepatitis C B19.20 Active Problem Depression F32.9 Active Problem Spinal stenosis of lumbar region M48.06 Active Assessment DDD (degenerative disc disease), M51.36 Active lumbar Problem COPD (chronic obstructive pulmonary J44.9 Active disease) Problem DDD (degenerative disc disease), M51.36 Active lumbar Medications Medication Code Code Instructions Start End Status Dosage System Date Date Lidocaine [facility] [address]-15 5 % Externally Mar 10, 1 patch to Once a day 2014 skin remove after 12 hours Tizanidine HCl [facility] 68065695283 4 MG TAKE TWO TABLETS BY MOUTH TWICE DAILY Zofran ODT [facility] [address]-60 8 MG Orally August as directed every 6 to 8 , 2014 hours Percocet [facility] [address]-17 10-325 MG Jan 18, Feb 17, 1 tablet as Orally every 12 2015 2016 needed hours Meloxicam [facility] [address]-80 15 MG Orally Jun 18, Jun 05, 1 tablet Once a day 2015 2016 Ambien [facility] [address]-26 10 MG Orally at 1 tablet bedtime Procedures Procedure Coding System Code Date *Fluzone, quad vial, 3+ yrs, 0.5mL, private CPT-4 15375 Jan 19, 2016 IMMUNIZATION ADMIN CPT-4 88944 Jan 19, 2016 OFFICE VISIT EST PATIENT LEVEL 3 CPT-4 69655 Jan 19, 2016 IRON BINDING TEST.[facility] CPT-4 80463 Jan 19, 2016 COMPLETE CBC W/AUTO DIFF WBC.[facility] CPT-4 86383 Jan 19, 2016 ROUTINE VENIPUNCTURE CPT-4 22726 Jan 19, 2016 ASSAY OF IRON.[facility] CPT-4 14136 Jan 19, 2016 Vital Signs Date/Time: Jan 19, 2016 BMI 18.28 Index Weight 103.2 lbs Height 63 in Blood Pressure Diastolic 64 mm Hg Blood Pressure Systolic 108 mm Hg Cardiac Monitoring Heart Rate 74 /min Temperature 98.4 F Oximetry 98 % Respiratory Rate 18 /min Results Name Result Date Reference Range Unit Abnormality Flag Iron Profile ----Percent Saturation 32 [id number] 11-46 % ----Unbound Iron Content 234 [id number] 126-382 ug/dl ----Iron 109 [id number] 50-170 ug/dL ----Iron Binding Capacity 343 [id number] 260-445 ug/dL Venipuncture OTHER-IMMUNIZATION ADMIN CBC With Platelet and Differential ----MCHC 35.3 17721328 32.0-36.0 g/dL ----MCH 34.1 [id number] 27.0-32.0 pg H ----MPV 9.4 36186386 8.8-14.8 fL ----RDW 14.0 15575177 11.5-14.5 % ----Eosinophils 3 10582170 0-4 % ----Basophils 0 17314154 0-2 % ----Immature Granulocytes 0.1 [id number] 0.0-1.0 % ----Absolute Neutrophils 3.71 25575828 1.90-7.00 10*3 ----Platelet Count 368 [id number] 150-400 K/uL ----Absolute Eosinophils 0.20 70262695 0.00-0.50 10*3 ----HCT 38.2 02028946 37.0-47.0 % ----Absolute Basophils 0.03 92381300 0.00-0.20 10*3 ----MCV 96.5 [id number] 82.0-99.0 fL ----RBC 3.96 [id number] 4.00-5.20 10*6/uL L ----Absolute Lymphocytes 3.04 95137510 0.80-3.30 10*3 ----Absolute Monocytes 0.66 72860141 0.30-1.00 10*3 ----HGB 13.5 38041546 12.0-18.0 g/dL ----Monocytes 9 20160119 4-11 % ----WBC 7.6 20160119 4.8-10.8 K/uL ----Neutrophils 49 20160119 51-75 % L ----Lymphocytes 40 20160119 20-46 % Immunizations Vaccine Administration Date *Fluzone, quad vial, 3+ yrs, 0.5mL, private Jan 19, 2016 Summary Purpose eClinicalWorks Submission
--- OUTSIDE RECORDS SUMMARY | 2017-10-19 14:44 | External Medical Summary ---
:1960 Author Organization [employer] Care Team Providers Name Role Phone Cris Mathew Provider Role Unavailable Allergies No Known Allergies Problems Problem Type Condition ICD-9 Code Onset Dates Condition Status Problem Tobacco use 305.1 Active Problem COPD (chronic obstructive 496 Active pulmonary disease) Problem Pneumonia 486 Active Problem Depression 311 Active Medications No Known Medications Results No Known Results Summary Purpose [employer]ClinicalWorks Submission
--- OUTSIDE RECORDS SUMMARY | 2017-10-19 14:45 | External Medical Summary ---
:1960 Author Name GENERATED, SYSTEM Care Team Providers Name Role Phone GRACIE SERRANO KIMBERLEY Primary Care Provider [phone] Reason For Visit Chief Complaint CHEST PAIN Social History Functional Status Vital Signs Results Chemistry from 02/02/2017 2:04 [id number] MMOL/L (136-145 MMOL/L) POTASSIUM3.3 MMOL/L L (3.5-5.1 MMOL/L) [id number] MMOL/L (98-107 MMOL/L) JOV028.0 MMOL/L (21.0-32.0 MMOL/L) *ANION GAP9.0 MMOL/L (8.0-16.0 MMOL/L) BUN8 MG/DL (7-18 MG/DL) CREATININE1.00 MG/DL (0.55-1.02 MG/DL) *BUN/CREATININE RATIO8.0 L (9.1-17.0 ) FVZHWKR69 MG/DL (65-99 MG/DL) *GFR EST NON AFR VITZNRNS91 ML/MIN (Reference Range: not available) *GFR EST AFR AMER74 ML/MIN (Reference Range: not available) CALCIUM8.7 MG/DL (8.5-10.1 MG/DL) BILIRUBIN TOTAL0.40 MG/DL (0.20-1.00 MG/DL) TOTAL PROTEIN7.6 GM/DL (6.4-8.2 GM/DL) ALBUMIN3.6 GM/DL (3.4-5.0 GM/DL) *GLOBULIN4.0 GM/DL H (2.3-3.5 GM/DL) *A/G RATIO0.9 L (1.5-2.2 ) ALK PHOS18 U/L L (46-116 U/L) ALT (SGPT)22 U/L (16-63 U/L) AST (SGOT)25 U/L (15-37 U/L) INQYRE154 U/L (73-393 U/L) TROPONIN-I<0.017 NG/ML (0.000-0.056 NG/ML)Hematology from 02/02/2017 2:04 PMWBC8.0 X10e3/UL (3.6-11.2 X10e3/UL) RBC3.72 X10e6/UL (3.63-4.92 X10e6/UL) BERNFOZJGO78.6 G/DL (11.0-14.3 G/DL) AWPKVMGLAB69.9 % (31.2-41.9 %) *MCV99.2 FL H (79.0-98.0 FL) *MCH33.9 PG H (27.0-33.0 PG) *MCHC34.2 G/DL (32.0-36.0 G/DL) *RDW14.5 % (12.3-17.0 %) *RDWSD49.9 H (37.1-47.8 ) EBCHMRHS952 X10e3/UL (159-386 X10e3/UL) *MPV6.9 FL L (7.4-10.4 FL) AUTOMATED DIFFPERFORMED (Reference Range: not available) SEGS48.1 % (Reference Range: not available) *SFDAXFSGAEA95.9 % (Reference Range: not available) *MONOCYTES8.4 % (Reference Range: not available) *EOSINOPHILS2.0 % (Reference Range: not available) *BASOPHILS0.6 % (Reference Range: not available) *ABSOLUTE NEUTROPHILS3.90 X10e3/UL (1.80-7.80 X10e3/UL) *ABSOLUTE LYMPHOCYTES3.30 X10e3/UL H (1.00-3.00 X10e3/UL) *ABSOLUTE MONOCYTES0.70 X10e3/UL (0.30-1.00 X10e3/UL) *ABSOLUTE EOSINOPHILS0.20 X10e3/UL (0.00-0.50 X10e3/UL) *ABSOLUTE BASOPHILS0.00 X10e3/UL (0.00-0.20 X10e3/UL)Coagulation from 02/02/2017 2:04 PM*PROTHROMBIN TIME10.5 SECONDS (9.4-11.5 SECONDS) *INR0.98 (0.90-1.10 )DX Radiology from 02/02/2017 2:22 PMCHEST 1 VIEWHistory: chest painOnset was 2-3 weeks, Pt has been having left sided chest pain, radiates to left shoulder. Quit smoking cigarettes 2 months ago. Priors: Chest x-ray dated 09/02/2016 Findings: The heart size and pulmonary vasculature within normal limits. No consolidating infiltrates are identified. No significant pleural effusion or pneumothorax is seen. Impression: No acute abnormality. Electronically signed by: Cynthia Bowers MD Dictated: 02/02/2017 14:35 (Reference Range: not available) Problems Encounter Diagnosis No relevant problems exist. [...] Allergies, Adverse Reactions, Alerts This section is registered representative of the current allergy information, at [...]
--- OUTSIDE RECORDS SUMMARY | 2017-10-19 14:45 | External Medical Summary | Summary of Care ---
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5) Status: Active Chronic viral hepatitis C (070.54, B18.2) Status: Active Chronic diarrhea (787.91, K52.9) Status: Active Arthralgia of right hip (719.45, M25.551) Status: Active Knee pain, right (719.46, M25.561) Status: Active Status post right knee replacement (V43.65, Z96.651) Status: Active Patellofemoral stress syndrome of both knees (719.46, M22.2X1) Status: Active Pes anserinus tendinitis of right lower extremity (726.61, M76.891) Status: Active Esophageal reflux disease (530.81, K21.9) Status: Active 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 Quantity: 30 Refills: 1 Start 28-Apr-2011 Active TiZANidine HCl - 4 MG Oral Tablet TAKE 1 TABLET 3 TIMES DAILY NEEDED. Refills: 0 Start 13-May-2014 Active Percocet 10-325 MG Oral Tablet Refills: 0 Start -Jan-2015 Active Omeprazole 20 MG Oral Capsule Delayed Release TAKE 1 CAPSULE DAILY. Quantity: 30 Refills: 3 Freedom Douglass M.D. Start 10-Dec-2015 Active RaNITidine HCl - 150 MG Oral Tablet TAKE 1 TABLET AT BEDTIME. Quantity: 30 Refills: 3 Freedom Douglass M.D. Start 10-Dec-2015 Active ZyrTEC Allergy 10 MG Oral Tablet TAKE 1 TABLET DAILY. Quantity: 30 Refills: 3 Freedom Douglass M.D. Start 10-Dec-2015 Active Allergies and Adverse Reactions Name Dates Details TBEC (Allergy) Status: Active Codeine Derivatives (Allergy) Status: Active Ibuprofen TABS (Allergy) Status: Denied Penicillins (Allergy) Status: Active predniSONE (Allergy) Status: Active Sulfa Drugs (Allergy) Status: Active Past Medical History Name Dates Details Aftercare following joint replacement (V54.81, Z47.1) Status: Active Chronic obstructive pulmonary disease (496, J44.9) Status: Active History of Anxiety (300.00, F41.9) Status: Resolved History of arthritis (V13.4, Z87.39) Status: Resolved History of degenerative disc disease (V13.59, Z87.39) Status: Resolved History of depression (V11.8, Z86.59) Status: Resolved History of esophageal reflux (V12.79, Z87.19) Status: Resolved History of fibromyalgia (V13.59, Z87.39) Status: Resolved History of Full dentures (V45.84, Z97.2) Status: Resolved History of hemorrhoids (V13.89, Z87.19) Status: Resolved History of Memory problem (780.93, R41.3) Status: Resolved History of migraine (V12.49, Z86.69) Status: Resolved History of Muscle discomfort (729.1, M79.1) Status: Resolved History of neuropathy (V12.49, Z86.69) Status: Resolved History of respiratory system disease (V12.60, Z87.09) Status: Resolved History of Rheumatism (729.0, M79.0) Status: Resolved History of sinusitis (V12.69, Z87.09) Status: Resolved History of Vision problem (V41.0, H54.7) Status: Resolved Procedures Procedure Dates Details History of Knee Arthroscopy With Limited Synovectomy Completed: 22-Jun-2011 History of Appendectomy History of Hysterectomy Procedures not documented Immunization Name Dates Details Fluzone Quadrivalent 0.5 ML Intramuscular Suspension on: Feb-2014 Lot #: [id number] Family History Unknown Family Member Name Dates Details Family history of cardiac disorder (V17.49, Z82.49) Comments: Family History Status: Active Sibling Name Dates Details Family history of cardiac disorder (V17.49, Z82.49) Status: Active Family history of diabetes mellitus (V18.0, Z83.3) Status: Active Mother Name Dates Details Family history of Status: Active Family history of cardiac disorder (V17.49, Z82.49) Status: Active Father Name Dates Details Family history of Status: Active Social History Name Dates Details - Status: Smoking Status Name Dates Details Current every day smoker Smoker. current status unknown Vital Signs Date Test Result Details 02-Feb-2016 09:52 BP Systolic 128 mm[Hg] Status: Comments: Location: ; Position: BP Diastolic 70 mm[Hg] Status: Comments: Location: ; Position: Weight 105 lb Status: Body Mass Index Calculated 18.6 kg/m2 Status: Body Surface Area Calculated 1.47 m2 Status: Results Date Description Value Details Results not documented Plan of Care Name Dates Details Planned Observations Planned Goals not documented Planned Encounters Appointment; Provider: Dominic Pierce M.D. On 21-Dec-2017 09:00 Instructions Name Dates Details Instructions not documented Encounters Appointment; Freedom Douglass M.D. On 10-Dec-2015 Encounter Diagnosis: Problem not documented 10:15 Appointment; Dominic Pierce M.D. On Encounter Diagnosis: Problem not documented 08:00 Appointment; Dominic Pierce M.D. On Encounter Diagnosis: Problem not documented 09:00 Appointment; Dominic Pierce M.D. On 28-May-2015 Encounter Diagnosis: Problem not documented 10:00 Appointment; Nishant Clarke P.A. On 13-Feb-2015 Encounter Diagnosis: Problem not documented 11:30 Appointment; Nishant Clarke P.A. On 09-Feb-2015 Encounter Diagnosis: Problem not documented 10:00 Appointment; Osman Greenfield M.D. On 02-Feb-2015 Encounter Diagnosis: Problem not documented 08:30 Appointment; Dl, Michelle On 02-Feb-2015 Encounter Diagnosis: Problem not documented 08:00 Appointment; Nishant Clarke P.A. On 09-Jan-2015 Encounter Diagnosis: Problem not documented 10:00 Appointment; Osman Greenfield M.D. On 23-Dec-2014 Encounter Diagnosis: Problem not documented 14:00 Appointment; Sukhjinder Figueroa M.D. On Encounter Diagnosis: Problem not documented 08:45 Appointment; Freedom Douglass M.D. On 22-Sep-2014 Encounter Diagnosis: Problem not documented 13:45 Appointment; Rodrigo Duran M.D. On 19-Sep-2014 Encounter Diagnosis: Problem not documented 09:50 Appointment; Sukhjinder Figueroa M.D. On 28-Aug-2014 Encounter Diagnosis: Problem not documented 10:15 Appointment; Dominic Pierce M.D. On 15-May-2014 Encounter Diagnosis: Problem not documented 14:30 Appointment; Sukhjinder Figueroa M.D. On 13-May-2014 Encounter Diagnosis: Problem not documented 09:45 Appointment; Sukhjinder Figueroa M.D. On 01-Apr-2014 Encounter Diagnosis: Problem not documented 14:00 Appointment; Haris Del Castillo M.D. On 26-Mar-2014 Encounter Diagnosis: Problem not documented 10:15 Appointment; Sukhjinder Figueroa M.D. On 27-Feb-2014 Encounter Diagnosis: Problem not documented 14:00 Appointment; Dominic Pierce M.D. On 18-Feb-2014 Encounter Diagnosis: Problem not documented 10:30 Appointment; Gallo Krause On 14-Feb-2014 Encounter Diagnosis: Problem not documented 08:15 Appointment; Sukhjinder Figueroa M.D. On 14-Feb-2014 Encounter Diagnosis: Problem not documented 07:45
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
--- OUTSIDE RECORDS SUMMARY | 2017-10-19 14:45 | External Medical Summary ---
:1960 Author Name GENERATED, SYSTEM Care Team Providers Name Role Phone GRACIE SERRANO KIMBERLEY Primary Care Provider [phone] Reason For Visit Chief Complaint ABDOMINAL PAIN Social History Functional Status Vital Signs [...] Allergies, Adverse Reactions, Alerts This section is screening representative of the current allergy information, at [...]
--- OUTSIDE RECORDS SUMMARY | 2017-10-19 14:45 | External Medical Summary ---
:1960 Author Name GENERATED, SYSTEM Care Team Providers Name Role Phone GRACIE SERRANO KIMBERLEY Primary Care Provider [phone] Reason For Visit Chief Complaint M79.602 PAIN AND SWELLING OF L UPPER EX,ULTRASOUND, DOPPLER VEINS ARM LEFT Social History Functional Status Vital Signs Results [...]
--- OUTSIDE RECORDS SUMMARY | 2017-10-19 14:45 | External Medical Summary | Summary of Care ---
:1960 Author Name Osman Greenfield M.D. Address [address] [place], [place] [address] Care Team Providers Name Role Phone Sukhjinder Figueroa M.D. Unavailable Unavailable Cris Mathew Primary Care Provider Unavailable Dominic Valdovinos Referring Provider Unavailable Unavailable Unavailable Unavailable Functional Status [...] S/P knee replacement (V43.65, Z96.659) Status: Active Muscle spasm (728.85, M62.838) Status: Active Cervicalgia (723.1, M54.2) Status: Active Head ache (784.0, R51) Status: [...] (719.46, M25.561) Status: Active Anserine bursitis (726.61, M70.50) Status: Active Osteoarthritis of knee (715.36, M17.9) Status: Active Chronic obstructive pulmonary disease (496, J44.9) Status: Active Back pain (724.5, M54.9) Status: Active Bipolar affective (296.80, F31.9) Status: Active Colon polyp (211.3, K63.5) Status: Active Chronic viral hepatitis C (070.54, B18.2) Status: Active Chronic diarrhea (787.91, K52.9) Status: Active Medications Name Dates Details Abilify [...] Refills: 0 Sukhjinder Figueroa M.D. Started 07-Mar-2013 [id number] GM Tube HydrOXYzine HCl - 10 MG Oral Tablet Take 1 tablet daily Refills: 0 Sukhjinder Figueroa M.D. Started 07-Mar-2013 ActiveTiZANidine HCl - 4 MG Oral Tablet TAKE 1 TABLET 3 TIMES DAILY NEEDED. Refills: 0 Started 13-May-2014 ActiveCymbalta 30 MG Oral Capsule Delayed Release Particles TAKE 1 CAPSULE TWICE DAILY. Refills: 0 Started 19-Dec-2014 ActiveLyrica 150 MG Oral Capsule TAKE 1 CAPSULE TWICE DAILY. Refills: 0 Started 19-Dec-2014 ActiveZofran 8 MG Oral Tablet Refills: 0 Started 19-Dec-2014 ActiveLamoTRIgine 200 MG Oral Tablet TAKE 1 TABLET DAILY. Refills: 0 Started 19-Dec-2014 ActiveLatuda 60 MG Oral Tablet Refills: 0 Started 19-Dec-2014 ActiveAdvair Diskus 100-50 MCG/DOSE Inhalation Aerosol Powder Breath Activated INHALE 1 PUFF EVERY 12 HOURS. Refills: 0 Started 19-Dec-2014 ActivePercocet 10-325 MG Oral Tablet Refills: 0 Started 09-Jan-2015 Active Allergies and Adverse Reactions Name Dates Details [facility] Status: Active Codeine Derivatives Status: Active Ibuprofen TABS Status: Denied Penicillins Status: Active predniSONE Status: Active Sulfa Drugs Status: Active Past [...] Synovectomy History of Appendectomy History of Hysterectomy Celiac Disease Comprehensive [id number] Ordered:05-Feb-2015 VITAMIN B12 3606 Ordered:05-Feb-2015 FOLATE 3608 Ordered:05-Feb-2015 IRON 1254 Ordered:05-Feb-2015 Immunization Name Dates Details Fluzone Quadrivalent 0.5 ML Intramuscular Suspension Administered on:Feb-2014 Lot #: [id number] Family History Unknown Family Member Name Dates [...] Name Dates Details Smoking StatusCurrent every day smokerSmoker. current status unknown Vital Signs Date Test Result Details 13-Feb-2015 11:46 BP Systolic 154 mm[Hg] Status: BP Diastolic 85 mm[Hg] Status: Heart Rate 67 /min Status: Height 63 in Status: Weight 111.2 lb Status: Body Mass Index Calculated 19.7 kg/m2 Status: Body Surface Area Calculated 1.51 m2 Status: Results Date Description Value Details 15-Jan-2015 Hepatitis C Viral Comments: [facility] performed at: [facility], [facility], [address] [place] [address], [id number], Damper Worker: Willem Flores 13:14 RNA, Genotype, SHILO Zamora MDQuest Collection Date/Time: [id number] Results Received Date/Time: [id number] Reported Date/Time: [id number] HCV GENOTYPE, LIPA GENOTYPE 1a Comments: The method used in this test is RT-PCR and reversehybridization (Line Probe) of the 5' UTR and coreregion of the HCV genome.The test was developed and its performancecharacteristics have been determined (Better) by[employer]. It has not been clearedor approved by the U.S. Food and DrugAdministration. The FDA has determined thatsuch clearance or approval is not necessary.Performance characteristics refer to theanalytical performance of the test.http:// education.ActiveSec.Overdog /faq/HCVGenotyping[[facility]]----- Plan of Care Planned Observations Name Dates Details Planned Goals not documented Goal Planned Encounters Appointment; Provider: Dominic Pierce On 21-Dec-2017 09:00 Appointment; Provider: Berny Cotter On 30-Jan-2015 09:00 Appointment; Provider: Dominic Pierce On 05-Sep-2011 08:00 Appointment; Provider: Elisha Ruvalcaba On 16-Sep-2009 07:00 Appointment; Provider: Elisha Ruvalcaba On 28-Aug-2009 09:30 Appointment; Provider: Florentin Redding On 11-Aug-2008 14:15 Appointment; Provider: Florentin Redding On 28-Jul-2008 14:15 Appointment; Provider: Florentin Redding On 14-Jul-2008 14:15 Appointment; Provider: Rodrigo Lopez On 30-Jun-2007 07:00 Instructions Instructions not documented Encounters Appointment; Nishant Clarke On 13-Feb-2015 Encounter Diagnosis: Problem not documented 11:30 Appointment; Nishant Clarke On 09-Feb-2015 Encounter Diagnosis: Problem not documented 10:00 Appointment; Osman Greenfield On 02-Feb-2015 Encounter Diagnosis: Problem not documented 08:30 Appointment; Michelle Lizama On 02-Feb-2015 Encounter Diagnosis: Problem not documented 08:00 Appointment; Nishant Clarke On 09-Jan-2015 Encounter Diagnosis: Problem not documented 10:00 Appointment; Osman Greenfield On 23-Dec-2014 Encounter Diagnosis: Problem not documented 14:00 Appointment; Sukhjinder Figueroa On Encounter Diagnosis: Problem not documented 08:45 Appointment; Freedom Douglass On 22-Sep-2014 Encounter Diagnosis: Problem not documented 13:45 Appointment; Rodrigo Duran On 19-Sep-2014 Encounter Diagnosis: Problem not documented 09:50 Appointment; Sukhjinder Figueroa On 28-Aug-2014 Encounter Diagnosis: Problem not documented 10:15 Appointment; Dominic Pierce On 15-May-2014 Encounter Diagnosis: [...]
--- OUTSIDE RECORDS SUMMARY | 2017-10-19 14:45 | External Medical Summary ---
:1960 Author Organization eClinicalWorks Care Team Providers Name Role Phone Cris Mathew Provider Role Unavailable Allergies No Known Allergies Problems Problem Type Condition ICD-9 Code Onset Dates Condition Status Problem COPD (chronic obstructive 496 Active pulmonary disease) Problem Depression 311 Active Problem Tobacco use 305.1 Active Medications Medication Code System Code Instructions Start Date End Date Status Dosage Percocet [facility] 37440-147 7.5-325 MG Orally November 20, November 27, 1 tablet as 2-72 every 6 hrs 2014 2014 needed Results No Known Results Summary Purpose eClinicalWorks Submission
--- OUTSIDE RECORDS SUMMARY | 2017-10-19 14:45 | External Medical Summary ---
[...] Condition ICD-9 Code Onset Dates Condition Status Assessment Tobacco use 305.1 Active Problem Tobacco use 305.1 Active Problem COPD (chronic obstructive 496 Active pulmonary disease) Problem Pneumonia 486 Active Assessment Pneumonia 486 Active Assessment Depression 311 Active Problem Depression 311 Active Assessment COPD (chronic obstructive 496 Active pulmonary disease) Medications Medication Code Code Instructions Start End Date Status Dosage [place] [address]-51 30 MG Orally 1 capsule 43-56 [place] [address]-91 100-50 MCG/DOSE 1 puff 95-00 Inhalation Gabapentin NDC 24112-93 300 MG Orally 2 tablets 39-19 twice a day Albuterol NDC 0 [place] [address]-38 60 MG Orally 1 tablet 06-01 Once a day with food Tizanidine HCl NDC 66851-48 4 MG Orally 2 tablets 00-10 twice a day Cipro NDC 23003-46 500 MG Orally 1 tablet 67-01 Twice a day Ibuprofen NDC 78118-23 600 MG Orally 1 tablet 58-00 Three [place] [address]-89 21 MG/24HR May 29, Jun 28, patch to 989 Transdermal Once 2014 2014 skin a day Lamotrigine NDC 0 200 MG Orally 1 [place] [address]-71 10 MG Orally at 1 tablet 21-31 bedtime Procedures Procedure Coding System Code Date COMPLETE CBC W/AUTO DIFF WBC.AMS CPT-4 35488 Jun 19, 2014 ROUTINE VENIPUNCTURE CPT-4 64008 Jun 19, 2014 OFFICE VISIT EST PATIENT LEVEL 3 CPT-4 44415 Jun 19, 2014 Vital Signs Date/Time: Jun 19, 2014 BMI 21.33 Index Weight 120.4 lbs Height 63 in Blood Pressure Diastolic 74 mm Hg Blood Pressure Systolic 114 mm Hg Cardiac Monitoring Heart Rate 82 /min Temperature 97.9 F Respiratory Rate 20 /min Results No Known Results Summary Purpose eClinicalWorks Submission
--- OUTSIDE RECORDS SUMMARY | 2017-10-19 14:45 | External Medical Summary ---
:1960 Author Organization eClinicalWorks Care Team Providers Name Role Phone Cris Mathew Provider Role Unavailable Allergies No Known Allergies Problems Problem Type Condition Code Onset Dates Condition Status Problem Tobacco use 305.1 Active Problem COPD (chronic obstructive pulmonary 496 Active disease) Problem DDD (degenerative disc disease) 722.6 Active Problem Depression 311 Active Medications Medication Code System Code Instructions Start End Date Status Dosage Date Tizanidine HCl [facility] 05168-920 4 MG Orally October 02, 2 tablets 0-10 twice a day 2014 Results No Known Results Summary Purpose eClinicalWorks Submission
--- OUTSIDE RECORDS SUMMARY | 2017-10-19 14:45 | External Medical Summary ---
:1960 Author Name GENERATED, SYSTEM Care Team Providers Name Role Phone GRACIE SERRANO KIMBERLEY Primary Care Provider [phone] Reason For Visit Chief Complaint OTHER INTERVERTEBRAL DISC DEGENERATION Social History Functional Status Vital Signs Results [...] Allergies, Adverse Reactions, Alerts This section is district representative of the current allergy information, at [...]
--- OUTSIDE RECORDS SUMMARY | 2017-10-19 14:46 | External Medical Summary | Summary of Care ---
:1960 Author Name Rodrigo Duran M.D. Address [address] [place] [address] Care Team Providers Name Role Phone Sukhjinder [...] Osteoarthritis of knee (715.96, M17.9) Status: Active Chronic obstructive pulmonary disease (496, J44.9) Status: Active Back pain (724.5, M54.9) Status: Active Bipolar affective (296.80, F31.9) Status: Active Medications Name Dates Details Abilify [...] Refills: 0 Sukhjinder Figueroa M.D. Started 07-Mar-2013 [id number] GM Tube HydrOXYzine HCl - 10 MG Oral Tablet Take 1 tablet daily Refills: 0 Sukhjinder Figueroa M.D. Started 07-Mar-2013 ActiveGabapentin 300 MG Oral Capsule TAKE 2 CAPSULES 3 TIMES DAILY. Refills: 0 Started 13-May-2014 ActiveTiZANidine HCl - 4 MG Oral Tablet TAKE 1 TABLET 3 TIMES DAILY NEEDED. Refills: 0 Started 13-May-2014 Active Allergies and Adverse Reactions Name Dates Details [facility] Status: Active Codeine Derivatives Status: Active Ibuprofen TABS Status: Active Penicillins Status: Active Sulfa Drugs Status: Active Past Medical History Name Dates Details Aftercare following joint replacement (V54.81, Z47.1) Status: Active Chronic obstructive pulmonary disease (496, J44.9) Status: Active History of Anxiety (300.00, F41.9) Status: Resolved History of arthritis (V13.4, Z87.39) Status: Resolved History of depression (V11.8, Z86.59) Status: Resolved History of Muscle discomfort (729.1, M79.1) Status: Resolved History of respiratory system disease (V12.60, Z87.09) Status: Resolved Procedures Procedure Dates Details History of Knee Arthroscopy With Limited Synovectomy Completed:22-Jun-2011 History of Appendectomy History of Hysterectomy Procedures not documented Immunization Name Dates Details Fluzone Quadrivalent 0.5 ML Intramuscular Suspension Administered on:Feb-2014 Lot #: [id number] Family History Unknown Family Member Name Dates [...] unknown Vital Signs Date Test Result Details 19-Sep-2014 10:26 BP Systolic 110 mm[Hg] Status: BP Diastolic 68 mm[Hg] Status: Heart Rate 80 /min Status: Weight 124 lb Status: Body Mass Index Calculated 21.97 kg/m2 Status: Body Surface Area Calculated 1.58 m2 Status: Results Date Description Value Details Results not documented Plan of Care Planned Observations Name Dates Details Planned Goals not documented Goal Planned Encounters Appointment; Provider: Dominic Pierce On 21-Dec-2017 09:00 Appointment; Provider: Freedom Douglass On 22-Sep-2014 13:45 Appointment; Provider: Dominic Pierce On 05-Sep-2011 08:00 Appointment; Provider: Elisha Ruvalcaba On 16-Sep-2009 07:00 Appointment; Provider: Elisha Ruvalcaba On 28-Aug-2009 09:30 Appointment; Provider: Florentin Redding On 11-Aug-2008 14:15 Appointment; Provider: Florentin Redding On 28-Jul-2008 14:15 Appointment; Provider: Florentin Redding On 14-Jul-2008 14:15 Appointment; Provider: Rodrigo Lopez On 30-Jun-2007 07:00 Instructions Instructions not documented Encounters Appointment; Rodrigo Duran On 19-Sep-2014 Encounter Diagnosis: [...]
--- OUTSIDE RECORDS SUMMARY | 2017-10-19 14:46 | External Medical Summary ---
:1960 Author Organization eClinicalWorks Care Team Providers Name Role Phone Cris Mathew Provider Role Unavailable Allergies No Known Allergies Problems Problem Type Condition ICD-9 Code Onset Dates Condition Status Problem Tobacco use 305.1 Active Problem COPD (chronic obstructive 496 Active pulmonary disease) Problem DDD (degenerative disc disease) 722.6 Active Problem Depression 311 Active Assessment Colitis 558.9 Active Medications Medication Code Code Instructions Start End Date Status Dosage System Date Zofran ODT NDC 85879-31 8 MG Orally August 22, as directed 70-00 every 6 to 8 2015 hours Lyrica NDC 37678-31 150 MG Orally August 22, 1 capsule 16-41 Twice a day 2014 Latuda NDC 52131-45 60 MG Orally 1 tablet 06-01 Once a day with food Cephalexin NDC 50305-72 500 MG Orally 1 capsule 47-01 Twice a day Lamotrigine NDC 0 200 MG Orally 1 tablet once a day Ambien NDC 53446-22 10 MG Orally at 1 tablet 21-31 bedtime Metronidazole NDC 99482-62 500 MG Orally October 27November 10, 1 tablet 32-04 every 8 hrs 2014 2014 Percocet NDC 83202-77 7.5-325 MG October 27November 11, 1 tablet as 62-72 Orally every 6 2014 2014 needed hrs Ibuprofen NDC 53129-22 600 MG Orally 1 tablet 58-00 Three times a day HydrOXYzine HCl NDC 02586-03 50 MG Orally not defined 62-01 three times daily Cymbalta NDC 65391-67 30 MG Orally 1 capsule 40-01 Twice a day Tizanidine HCl NDC 39551-51 4 MG Orally 1 tablet as 00-10 twice a day needed Procedures Procedure Coding System Code Date STOOL CULTR AEROBIC BACT [facility] CPT-4 68827 October 30, 2014 OVA AND PARASITES SMEARS.[facility] CPT-4 75689 October 30, 2014 FECES CULTURE AEROBIC BACT.[facility] CPT-4 64775 October 30, 2014 Results No Known Results Summary Purpose eClinicalWorks Submission
--- OUTSIDE RECORDS SUMMARY | 2017-10-19 14:46 | External Medical Summary ---
[...] Instructions Start End Date Status Dosage Date Lyrica [facility] 05418-373 150 MG Orally August 22, 1 capsule 6-41 Twice a day 2014 [place] [address]-054 4 MG Orally Jan 22, 2 tablets 0-10 twice a day 2014 Results No Known Results Summary Purpose eClinicalWorks Submission
--- OUTSIDE RECORDS SUMMARY | 2017-10-19 14:46 | External Medical Summary ---
:1960 Author Organization eClinical100Plus Care Team Providers Name Role Phone Cris Mathew Provider Role Unavailable Allergies No Known Allergies Problems Problem Type Condition ICD-9 Code Onset Dates Condition Status Problem Tobacco use 305.1 Active Problem COPD (chronic obstructive 496 Active pulmonary disease) Problem DDD (degenerative disc disease) 722.6 Active Problem Depression 311 Active Assessment Encounter for screening V76.12 Active mammogram for breast cancer Medications No Known Medications Procedures Procedure Coding System Code Date Screening Mammography Digital Bilateral CPT-4 G0202 October 29, 2014 Comp Screen Mammogram Add CPT-4 89249 October 29, 2014 Results No Known Results Summary Purpose [facility]Plus Submission
--- OUTSIDE RECORDS SUMMARY | 2017-10-19 14:46 | External Medical Summary ---
:1960 Author Name GENERATED, SYSTEM Care Team Providers Name Role Phone GRACIE SERRANO KIMBERLEY Primary Care Provider [phone] Reason For Visit Chief Complaint R RIB PAIN Social History Functional Status Vital Signs [...]
--- OUTSIDE RECORDS SUMMARY | 2017-10-19 14:46 | External Medical Summary | Summary of Care ---
:1960 Author Name Nishant Beebe Address [address] [place], [place] [id number] Care Team Providers Name Role Phone Sukhjinder [...] Refills: 0 Sukhjinder Figueroa M.D. Started 07-Mar-2013 [id number] GM Tube HydrOXYzine HCl - 10 MG [...] Allergies and Adverse Reactions Name Dates Details [facility] Status: Active Codeine Derivatives Status: Active [...] Appendectomy History of Hysterectomy Celiac Disease Comprehensive [id number] Ordered:05-Feb-2015 VITAMIN B12 3606 Ordered:05-Feb-2015 FOLATE 3608 Ordered:05-Feb-2015 IRON 1254 Ordered:05-Feb-2015 Immunization Name Dates Details Fluzone Quadrivalent 0.5 ML Intramuscular Suspension Administered on:Feb-2014 Lot #: [id number] Family History Unknown Family Member Name Dates [...] Hepatitis C Viral Comments: [facility] performed at: [facility], [facility], [address] [place] [address], [phone], Drill Operator Pneumatic: Willem Flores 13:14 RNA, Genotype, SHILO Zamora MDQuest Collection Date/Time: [id number] Results Received Date/Time: [id number] Reported Date/Time: [id number] HCV GENOTYPE, LIPA GENOTYPE 1a Comments: The method used in this test is RT-PCR and reversehybridization (Line Probe) of the 5' UTR and coreregion of the HCV genome.The test was developed and its performancecharacteristics have been determined (Better) by[employer]. It has not been clearedor approved by the U.S. Food and DrugAdministration. The FDA has determined thatsuch clearance or approval is not necessary.Performance characteristics refer to theanalytical performance of the test.http:// education.[employer].Convore /faq/HCVGenotyping[[facility]]----- Plan of Care Planned Observations Name [...]
--- OUTSIDE RECORDS SUMMARY | 2017-10-19 14:46 | External Medical Summary ---
[...] Condition Code Onset Dates Condition Status Assessment Depression 311 Active Problem Pneumonia 486 Active Problem Tobacco use 305.1 Active Problem DDD (degenerative disc disease) 722.6 Active Assessment DDD (degenerative disc disease) 722.6 Active Assessment Tobacco use 305.1 Active Problem COPD (chronic obstructive pulmonary 496 Active disease) Problem Depression 311 Active Medications Medication Code Code Instructions Start End Date Status Dosage [place] [address]-31 30 MG Orally 1 capsule 43-56 Twice a day Lamotrigine NDC 0 200 MG Orally 1 [place] [address]-49 150 MG Orally August 22, 1 capsule 16-41 Twice a day 2014 Tramadol HCl NDC 64293-82 50 MG Orally August 22September 06, 1 tablet as 58-01 every 6 hrs 2014 2015 [place] [address]-13 100-50 MCG/DOSE 1 puff 95-00 [place] [address]-70 10 MG Orally at 1 tablet 21-31 [place] [address]-71 600 MG Orally 1 tablet 58-00 Three times a day Albuterol NDC 0 not defined Zofran ODT NDC 09879-38 8 MG Orally August 22, as directed 70-00 every 6 to 8 2015 [place] [address]-44 4 MG Orally 2 tablets 00-10 [place] [address]-51 60 MG Orally 1 tablet 06-01 Once a day with food Procedures Procedure Coding System Code Date OFFICE VISIT EST PATIENT LEVEL 3 CPT-4 30611 August 22, 2014 Vital Signs Date/Time: August 22, 2014 BMI 21.33 Index Weight 120.4 lbs Height 63 in Blood Pressure Diastolic 78 mm Hg Blood Pressure Systolic 136 mm Hg Cardiac Monitoring Heart Rate 78 /min Temperature 97.8 F Respiratory Rate 18 /min Results No Known Results Summary Purpose eClinicalWorks Submission
--- OUTSIDE RECORDS SUMMARY | 2017-10-19 14:46 | External Medical Summary | Summary of Care ---
:1960 Author Name Haris Del Castillo M.D. Address [address] [place], [place] [address] Care Team Providers Name Role Phone Sukhjinder [...] Refills: 0 Sukhjinder Figueroa M.D. Started 30-May-2011 ActiveGabapentin 300 MG Oral Capsule TAKE 2 CAPSULES 3 TIMES DAILY. Refills: 0 Started 13-May-2014 ActiveTiZANidine HCl - 4 MG Oral Tablet TAKE 1 TABLET 3 TIMES DAILY NEEDED. Refills: 0 Started 13-May-2014 ActiveHydrOXYzine HCl - 10 MG Oral Tablet Take 1 tablet daily Refills: 0 Sukhjinder Figueroa M.D. Started 07-Mar-2013 ActiveVoltaren 1 % Transdermal Gel Apply 4 grams to affected area QID Quantity: 5 Refills: 0 Sukhjinder Figueroa M.D. Started 07-Mar-2013 [id number] GM Tube Allergies and Adverse Reactions Name Dates Details [...] ML Intramuscular Suspension Administered on:Feb-2014 Lot #: [id number] Family History Unknown Family Member Name Dates [...]
--- OUTSIDE RECORDS SUMMARY | 2017-10-19 14:46 | External Medical Summary ---
[...] DDD (degenerative disc disease) 722.6 Active Assessment UTI (lower urinary tract 599.0 Active infection) Assessment Rib pain on right side 786.50 Active Problem Depression 311 Active Assessment Colitis 558.9 Active Medications Medication Code Code Instructions Start End Date Status Dosage System Date Zofran ODT [facility] 12088-74 8 MG Orally August 22, as directed 70-00 every 6 to 8 2015 hours Lamotrigine NDC 0 200 MG Orally 1 tablet [place] [address]-86 50 MG Orally not defined 62-01 three times daily Ibuprofen NDC 15228-09 600 MG Orally 1 tablet 58-00 [place] [address]-66 5-325 MG Orally October 21October 31, 1 tablet as 13-01 every 6 hrs 2014 2014 [place] [address]-86 10 MG Orally at 1 tablet 21-31 bedtime Metronidazole NDC 54390-88 500 MG Orally October 27November 10, 1 tablet 32-04 every 8 hrs 2014 2014 Cymbalta [facility] 99890-18 30 MG Orally 1 capsule 40-01 [place] [address]-36 4 MG Orally 1 tablet as 00-10 twice [place] [address]-67 500 MG Orally 1 capsule 47-01 Twice a day Lyrica NDC 23523-90 150 MG Orally August 22, 1 capsule 16-41 Twice a day 2014 Latuda [facility] 16721-56 60 MG Orally 1 tablet 06-01 Once a day with food Procedures Procedure Coding System Code Date OFFICE VISIT EST PATIENT LEVEL 3 CPT-4 68334 October 27, 2014 Vital Signs Date/Time: October 27, 2014 BMI 20.01 Index Weight 113.0 lbs Height 63 in Blood Pressure Diastolic 84 mm Hg Blood Pressure Systolic 132 mm Hg Cardiac Monitoring Heart Rate 78 /min Temperature 97.9 F Respiratory Rate 18 /min Results No Known Results Summary Purpose eClinicalWorks Submission
--- OUTSIDE RECORDS SUMMARY | 2017-10-19 14:46 | External Medical Summary ---
:1960 Author Name GENERATED, SYSTEM Care Team Providers Name Role Phone GRACIE SERRANO KIMBERLEY Primary Care Provider [phone] Reason For Visit Chief Complaint ORAL CANDIDIASIS Social History Functional Status Vital Signs Results Microbiology from 04/10/2016 8:43 AM*KHADIJAH- FUNGAL SMEAR Specimen Number: [id number] Sample Collection Date/Time: 04/10/2016 8:43 AM Specimen Source: Mouth Throat *KHADIJAH- FUNGAL SMEAR: Many Budding yeast Few pseudohyphae present CULTURE GROUP A STREP (Preliminary Result) Specimen Number: [id number] Sample Collection Date/Time: 04/10/2016 8:43 AM Specimen Source: Throat GROUP A STREP, RAPID AG: NEGATIVE FOR GROUP A STREP CULTURE GROUP A STREP: Testing in Progress GROUP A STREP, RAPID AG Specimen Number: [id number] Sample Collection Date/Time: 04/10/2016 8:43 AM Specimen Source: Throat GROUP A STREP, RAPID AG: NEGATIVE FOR GROUP A STREP CULTURE GROUP A STREP: Testing in Progress DX Radiology from 04/10/2016 8:28 AMCHEST 2 VIEWSHistory: COUGH. Sore throat, voice loss common cough x3 days. No fever or chills. No dysphagia Technique: 2 VIEW CHEST Priors: February 29, 2016 Findings: Cardiomediastinal silhouette is stable. Calcifications involving the aortic arch are again noted. Mild symmetric biapical pleural parenchymal scarring. The lungs are otherwise clear. No pneumothorax is visualized. Impression: No evidence of CHF or pneumonia. Electronically signed by: THONY CRISTOBAL Dictated: 04/10/2016 08:38 Problems Encounter Diagnosis No relevant problems exist. [...]
--- OUTSIDE RECORDS SUMMARY | 2017-10-19 14:46 | External Medical Summary | Summary of Care ---
:1960 Author Name Henry Abbasi, Sukhjinder Address Unavailable Unavailable , Care Team Providers Name Role Phone Errol Horvath D.O. Unavailable Unavailable Freedom Douglass M.D. 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: Active Compression fracture of thoracic vertebra (805.2, S22.000A) Status: Active Synovitis of hip (727.09, M65.9) Status: Active Fatigue (780.79, R53.83) Status: Active Hypercholesterolemia (272.0, E78.00) Status: Active Chronic pain (338.29, G89.29) Status: Active Tobacco abuse counseling (V65.42, Z71.6) Status: Active Osteoarthritis of knee (715.36, M17.10) Status: Active Chronic obstructive pulmonary disease (496, J44.9) Status: Active Back pain (724.5, M54.9) Status: Active Bipolar affective (296.80, F31.9) Status: Active Colon polyp (211.3, K63.5) Status: Active Chronic diarrhea (787.91, K52.9) Status: Active Knee pain, right (719.46, M25.561) Status: Active Status post right knee replacement (V43.65, Z96.651) Status: Active Patellofemoral stress syndrome of both knees (719.46, M22.2X1) Status: Active Pes anserinus tendinitis of right lower extremity (726.61, M76.891) Status: Active Esophageal reflux disease (530.81, K21.9) Status: Active 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, 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) Status: Active Environmental allergies (V15.09, Z91.09) Status: Active Arthralgia of multiple sites (719.49, M25.50) Status: Active Acute right hip pain (719.45, M25.551) Status: Active Bursitis of left hip (726.5, M70.72) Status: Active Bursitis of right hip (726.5, M70.71) Status: Active Osteoporosis (733.00, M81.0) Status: Active Chronic viral hepatitis C (070.54, B18.2) Status: Active Chronic use of opiate drugs therapeutic purposes (V58.69, Z79.891) Status: Active Rib pain on right side (786.50, R07.81) Status: Active Dyspnea (786.09, R06.00) Status: Active Acute pain of left hip (719.45, M25.552) Status: Active Bursitis, hip, left (726.5, M70.72) Status: Active Gastroesophageal reflux disease (530.81, K21.9) Status: Active Abdominal pain, right lateral (789.09, R10.9) Status: Active Abdominal tenderness, right lower quadrant (789.63, R10.813) Status: Active Backache (724.5, M54.9) Status: Active Acute midline thoracic back pain (724.1, M54.6) Status: Active Acute midline low back pain without sciatica (724.2, M54.5) Status: Active Medications Name Dates Details TiZANidine HCl - 4 MG Oral Tablet TAKE 1 TABLET 3 TIMES DAILY NEEDED. Refills: 0 Start 13-May-2014 Active Percocet 10-325 MG Oral Tablet Refills: 0 Start 09-Jan-2015 Active ZyrTEC Allergy 10 MG Oral Tablet TAKE 1 TABLET DAILY. Quantity: 30 Refills: 3 Freedom Douglass M.D. Start 10-Dec-2015 Active Ondansetron 4 MG Oral Tablet Dispersible Take 1 every 8 hours prn Quantity: 6 Refills: 0 Start 07-Mar-2016 Active Pantoprazole Sodium 40 MG Oral Tablet Delayed Release TAKE 1 TABLET DAILY. Quantity: 30 Refills: 2 Freedom Douglass M.D. Start 28-Apr-2016 Active Meloxicam 15 MG Oral Tablet TAKE 1 TABLET DAILY. Quantity: 1 Refills: 0 Errol Horvath D.O. Start 02-Sep-2016 Active [place] 5-325 MG Oral Tablet Quantity: 40 Refills: 0 Start 24-Sep-2016 Active Allergies and Adverse Reactions Name Dates Details Aspir-81 TBEC (Allergy) Status: Active Codeine Derivatives (Allergy) Status: Active Ibuprofen TABS (Allergy) Status: Denied Penicillins (Allergy) Status: Active predniSONE (Allergy) Status: Active Sulfa Drugs (Allergy) Status: Active Past Medical History Name Dates Details Chronic obstructive pulmonary disease (496, J44.9) Status: Active History of Anxiety (300.00, F41.9) Status: Resolved History of arthritis (V13.4, Z87.39) Status: Resolved History of degenerative disc disease (V13.59, Z87.39) Status: Resolved History of depression (V11.8, Z86.59) Status: Resolved History of fibromyalgia (V13.59, Z87.39) Status: Resolved History of Full dentures (V45.84, Z97.2) Status: Resolved History of hemorrhoids (V13.89, Z87.19) Status: Resolved History of Left hip pain (719.45, M25.552) Status: Resolved History of Memory problem (780.93, [...] Dates Details History of Knee Arthroscopy With Completed: 22-Jun-2011 Limited Synovectomy History of Appendectomy History of Hysterectomy XRay SPINE-LUMBAR Ordered: 24-Sep-2016 Immunization Name Dates Details Fluzone Quadrivalent 0.5 ML Intramuscular Suspension on: Feb-2014 Lot #: [id number] Family History Unknown Family Member Name Dates [...] unknown Vital Signs Date Test Result Details 29-Sep-2016 08:05 BP Systolic 120 mm[Hg] Status: Comments: Location: LUE; Position: Sitting BP Diastolic 72 mm[Hg] Status: Comments: Location: LUE; Position: Sitting Weight 119 lb Status: Body Mass Index Calculated 20.43 kg/m2 Status: Body Surface Area Calculated 1.57 m2 Status: 24-Sep-2016 11:37 BP Systolic 100 mm[Hg] Status: Comments: Location: ; Position: BP Diastolic 70 mm[Hg] Status: Comments: Location: ; Position: Temperature 98.1 f Status: Comments: Method: Heart Rate 72 /min Status: Comments: Location: ; Physical Findings 18 Status: Comments: Respiration Weight 111 lb Status: Physical Findings 96 Status: Comments: O2 Saturation Body Mass Index Calculated 19.05 kg/m2 Status: Body Surface Area Calculated 1.52 m2 Status: 02-Sep-2016 10:05 BP Systolic 144 mm[Hg] Status: Comments: Location: ; Position: BP Diastolic 82 mm[Hg] Status: Comments: Location: ; Position: Heart Rate 88 /min Status: Height 64 in Status: Weight 113.5 lb Status: Physical Findings 96 Status: Comments: O2 Saturation Body Mass Index Calculated 19.48 kg/m2 Status: Body Surface Area Calculated 1.54 m2 Status: Results Date Description Value Details 26-Sep-2016 10:29 XRay SPINE-THORACIC Comments: Exam Date: 09/24/2016 11: 48Dictation Date: 09/26/2016 10:29 X SPINE THORACIC (2V) 10:31 X SPINE L-S COMPLETE Comments: Exam Date: 09/24/2016 11:48Dictation Date: 09/26/2016 10:31 Plan of Care Name Dates Details Planned Observations Planned Goals not documented Planned Encounters Appointment; Provider: Dominic Pierce M.D. On 21-Dec-2017 09:00 Instructions Name Dates Details Instructions not documented Encounters Appointment; Sivakumar Woodall M.D. On 24-Sep-2016 Encounter Diagnosis: Problem not documented 11:15 Appointment; Errol Horvath D.O. On 02-Sep-2016 Encounter Diagnosis: Problem not documented 09:59 Appointment; Dominic Pierce M.D. On 05-Apr-2016 Encounter Diagnosis: Problem not documented 10:30 Appointment; Renee Jay A.P.R.N. On 07-Mar-2016 Encounter Diagnosis: Problem not documented 10:00 Appointment; Sukhjinder Figueroa M.D. On 02-Feb-2016 Encounter Diagnosis: Problem not documented 09:30 Appointment; Freedom Douglass M.D. On 10-Dec-2015 Encounter Diagnosis: Problem not documented 10:15 Appointment; Dominic Pierce M.D. On Encounter Diagnosis: Problem not documented 08:00 Appointment; Dominic Pierce M.D. On Encounter Diagnosis: Problem not documented 09:00 Appointment; Dominic Pierce M.D. On 28-May-2015 Encounter Diagnosis: Problem not documented 10:00 Appointment; Nishant Clarke P.A. On 13-Feb-2015 Encounter Diagnosis: Problem not documented 11:30 Appointment; Nishant Clarke PEunice On 09-Feb-2015 Encounter Diagnosis: Problem not documented [...]
--- OUTSIDE RECORDS SUMMARY | 2017-10-19 14:47 | External Medical Summary ---
[...] (degenerative disc disease), M51.36 Active lumbar Medications No Known Medications Results No Known Results Summary Purpose eClinicalWorks Submission
--- OUTSIDE RECORDS SUMMARY | 2017-10-19 14:47 | External Medical Summary ---
[...] Condition Code Onset Dates Condition Status Assessment DDD (degenerative disc disease), M51.36 Active lumbar Assessment Other screening mammogram Z12.31 Active Problem Iron deficiency anemia D50.9 Active Problem Hepatitis C B19.20 Active Problem Depression F32.9 Active Problem Spinal stenosis of lumbar region M48.06 Active Assessment Right hand pain M79.641 Active Problem COPD (chronic obstructive pulmonary J44.9 Active disease) Problem DDD (degenerative disc disease), M51.36 Active lumbar Medications Medication Code Code Instructions Start End Status Dosage System Date Date Percocet [facility] [address]-90 7.5-325 MG Dec 30Jan 1 tablet as Orally every 12 2015 24, needed hours 2015 Zofran ODT [facility] [address]-48 8 MG Orally [place] as directed every 6 to 8 17, 2015 hours Tizanidine HCl [facility] 00242979054 4 MG TAKE TWO TABLETS BY MOUTH TWICE DAILY Ambien [facility] [address]-81 10 MG Orally at 1 tablet bedtime Procedures Procedure Coding System Code Date X-Ray Hand CPT-4 14374 Dec 31, 2015 OFFICE VISIT EST PATIENT LEVEL 3 CPT-4 53026 Dec 31, 2015 X-Ray Hand CPT-4 05901 Dec 31, 2015 Vital Signs Date/Time: Dec 31, 2015 BMI 18.28 Index Weight 103.2 lbs Height 63 in Blood Pressure Diastolic 78 mm Hg Blood Pressure Systolic 112 mm Hg Cardiac Monitoring Heart Rate 68 /min Temperature 98.0 F Oximetry 97 % Respiratory Rate 18 /min Results Name Result Date Reference Range Unit Abnormality Flag X Ray : Hand Right Summary Purpose eClinicalWorks Submission
--- OUTSIDE RECORDS SUMMARY | 2017-10-19 14:47 | External Medical Summary ---
[...] Date Status Dosage Percocet [facility] 13964-720 7.5-325 MG Orally November 20, November 27, 1 tablet as 2-72 every 6 hrs 2014 2014 needed Results No Known Results Summary Purpose eClinicalWorks Submission
--- OUTSIDE RECORDS SUMMARY | 2017-10-19 14:47 | External Medical Summary ---
:1960 Author Name GENERATED, SYSTEM Care Team Providers Name Role Phone GRACIE SERRANO KIMBERLEY Primary Care Provider [phone] Reason For Visit Chief Complaint BACK PAIN Social History Functional Status Vital Signs Results DX Radiology from 11/27/2016 7:10 AMHIP LEFT 2 VIEWS WITH PELVISHistory: Fall. Hip injury. Left hip pain. Technique: Single-view pelvis and two-view left hip Priors: 02/29/16 Findings: There is no acute fracture. The hip is in normal alignment. There are very minimal degenerative changes. There is a remote appearing deformity of the left superior pubic ramus. Impression: No acute osseous abnormality. Electronically signed by: Lisandro Cosme MD Dictated: 11/27/2016 10:04 (Reference Range: not available) CT [place] 11[place]27[place]2016 6:[place] [facility] [place] W/O CONTRASTHistory: Fall. Back pain. Priors: 02/17/11 Findings: there is mild central height loss involving the superior endplate of T8. This is not significantly changed compared prior study most consistent with a prominent Schmorl's node or less likely remote fracture. The remaining vertebral bodies normal in height and alignment. There are mild degenerative changes. There is no significant central canal stenosis. The paravertebral soft tissues are unremarkable. Impression: Mild degenerative changes. Stable prominent Schmorl's node or less likely remote compression fracture centrally involving the T8 vertebral body. 

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
--- OUTSIDE RECORDS SUMMARY | 2017-10-19 14:47 | External Medical Summary | Summary of Care ---
:1960 Author Name Nishant Beebe Address [address] [place], [place] [id number] Care Team Providers Name Role Phone Sukhjinder [...] Active Bipolar affective (296.80, F31.9) Status: Active Chronic diarrhea (787.91, K52.9) Status: Active Chronic viral hepatitis C (070.54, B18.2) Status: Active Medications Name Dates Details Abilify [...] Refills: 0 Sukhjinder Figueroa M.D. Started 07-Mar-2013 [id number] GM Tube HydrOXYzine HCl - 10 MG [...] Allergies and Adverse Reactions Name Dates Details [facility] Status: Active Codeine Derivatives Status: Active Ibuprofen TABS Status: Denied Penicillins Status: Active predniSONE Status: Active Sulfa Drugs Status: Active Past Medical History Name Dates Details Aftercare following joint replacement (V54.81, Z47.1) Status: Active Chronic obstructive pulmonary disease (496, J44.9) Status: Active History of Anxiety (300.00, F41.9) Status: Resolved History of arthritis (V13.4, Z87.39) Status: Resolved History of colonic polyps (V12.72, Z86.010) Status: Resolved History of degenerative disc disease [...] Synovectomy History of Appendectomy History of Hysterectomy CBC w/ Auto Diff 7150 Ordered:09-Jan-2015 Comprehensive Metabolic Panel 1212 Ordered:09-Jan-2015 Hepatitis C Viral RNA, Quantitative, RT- PCR Ordered:09-Jan-2015 w/Reflex to [id number] Hepatitis C Viral RNA, Genotype, LIPA [id number] Ordered:09-Jan-2015 Immunization Name Dates Details Fluzone Quadrivalent 0.5 ML Intramuscular Suspension Administered on:Feb-2014 Lot #: [id number] Family History Unknown Family Member Name Dates [...] unknown Vital Signs Date Test Result Details 09-Jan-2015 10:06 BP Systolic 112 mm[Hg] Status: BP Diastolic 79 mm[Hg] Status: Heart Rate 64 /min Status: Height 63 in Status: Weight 114.6 lb Status: Body Mass Index Calculated 20.3 kg/m2 Status: Body Surface Area Calculated 1.53 m2 Status: Results Date Description Value Details Results not documented Plan of Care Planned Observations Name Dates Details Planned Goals not documented Goal Planned Encounters Appointment; Provider: Dominic Pierce On 21-Dec-2017 09:00 Appointment; Provider: Nishant Clarke On 09-Feb-2015 10:00 Appointment; Provider: Osman Greenfield On 02-Feb-2015 08:30 Appointment; Provider: Michelle Lizama On 02-Feb-2015 08:00 Appointment; Provider: Dominic Pierce On 05-Sep-2011 08:00 Appointment; Provider: Elisha Ruvalcaba On 16-Sep-2009 07:00 Appointment; Provider: Elisha Ruvalcaba On 28-Aug-2009 09:30 Appointment; Provider: Florentin Redding On 11-Aug-2008 14:15 Appointment; Provider: Florentin Redding On 28-Jul-2008 14:15 Appointment; Provider: Florentin Redding On 14-Jul-2008 14:15 Appointment; Provider: Rodrigo Lopez On 30-Jun-2007 07:00 Instructions Instructions not documented Encounters Appointment; Nishant Clarke On 09-Jan-2015 Encounter Diagnosis: [...]
--- OUTSIDE RECORDS SUMMARY | 2017-10-19 14:47 | External Medical Summary | Summary of Care ---
:1960 Author Name Sivakumar Woodall M.D. Address Unavailable Unavailable , Care Team Providers Name Role Phone Talisha Abbasi, Sivakumar Unavailable Unavailable Errol Horvath D.O. Unavailable Unavailable Rafat Abbasi, Freedom Smiley Unavailable Unavailable Cris Mathew Unavailable Unavailable Dominic [...] M54.5) Status: Active Medications Name Dates Details ZyrTEC Allergy 10 MG Oral Tablet TAKE 1 TABLET DAILY. Quantity: 30 Refills: 3 Freedom Douglass M.D. Start 10-Dec-2015 Active Ondansetron 4 MG Oral Tablet Dispersible Take 1 every 8 hours prn Quantity: 6 Refills: 0 Start 07-Mar-2016 Active [place] 5-325 MG Oral Tablet Quantity: 40 Refills: 0 Start 24-Sep-2016 Active Percocet 10-325 MG Oral Tablet Refills: 0 Start 09-Jan-2015 Active Meloxicam 15 MG Oral Tablet TAKE 1 TABLET DAILY. Quantity: 1 Refills: 0 Errol Horvath D.O. Start 02-Sep-2016 Active Pantoprazole Sodium 40 MG Oral Tablet Delayed Release TAKE 1 TABLET DAILY. Quantity: 30 Refills: 2 Freedom Douglass M.D. Start 28-Apr-2016 Active TiZANidine HCl - 4 MG Oral Tablet TAKE 1 TABLET 3 TIMES DAILY NEEDED. Refills: 0 Start 13-May-2014 Active Allergies and Adverse Reactions Name [...] ML Intramuscular Suspension on: Feb-2014 Lot #: [id number] Family History Unknown Family Member Name Dates [...] unknown Vital Signs Date Test Result Details 24-Sep-2016 11:37 BP Systolic 100 mm[Hg] Status: Comments: Location: LUE; Position: Sitting BP Diastolic 70 mm[Hg] Status: Comments: Location: LUE; Position: Sitting Temperature 98.1 f Status: Heart Rate 72 /min Status: Comments: Location: [...] ; Position: Heart Rate 88 /min Status: Comments: Location: ; Height 64 in Status: Weight 113.5 lb [...] Provider: Dominic Pierce M.D. On 21-Dec-2017 09:00 Appointment; Provider: Sukhjinder Figueroa M.D. On 27-Sep-2016 12:45 Interventions Provided Labs/Procedures/ImagingXRay SPINE-LUMBAR; To be Done: 24 Sep 2016XRay SPINE- THORACIC; Done: Sep 26 2016 10:29AM Instructions Name Dates Details Instructions not documented Encounters Appointment; Errol Horvath D.O. On 02-Sep-2016 Encounter [...]
--- OUTSIDE RECORDS SUMMARY | 2017-10-19 14:47 | External Medical Summary | Summary of Care ---
:1960 Author Name Greg Huynh Address [address] [place], [place] [address] Care Team Providers Name Role Phone Sukhjinder [...] M17.9) Status: Active Medications Name Dates Details Ibuprofen 600 MG Oral Tablet TAKE 1 TABLET TWICE A DAY WITH MEALS Quantity: 60 Refills: 0 Sukhjinder Figueroa M.D. Started 30-May-2011 ActiveHydrOXYzine HCl - 10 MG Oral Tablet Take 1 tablet daily Refills: 0 Sukhjinder Figueroa M.D. Started 07-Mar-2013 ActiveGabapentin 300 MG Oral Capsule TAKE 2 CAPSULES 3 TIMES DAILY. Refills: 0 Started 13-May-2014 ActiveTiZANidine HCl - 4 MG Oral Tablet TAKE 1 TABLET 3 TIMES DAILY NEEDED. Refills: 0 Started 13-May-2014 ActiveZolpidem Tartrate 10 MG Oral Tablet TAKE 1 TABLET AT BEDTIME NEEDED FOR SLEEP. Quantity: 30 Refills: 1 Started 28-Apr-2011 ActiveAbilify 15 MG Oral Tablet Refills: 0 Sukhjinder Figueroa M.D. Started 01-Jul-2008 ActiveVoltaren 1 % Transdermal Gel Apply 4 grams to affected area QID Quantity: 5 Refills: 0 Sukhjinder Figueroa M.D. Started 07-Mar-2013 Mxtkpl217 GM Tube Allergies and Adverse Reactions Name [...] ML Intramuscular Suspension Administered on:Feb-2014 Lot #: [id number] Family History Unknown Family Member Name Dates [...] 23-May-2014 09:45 Appointment; Provider: Dominic Pierce On 05-Sep-2011 08:00 [...]
--- OUTSIDE RECORDS SUMMARY | 2017-10-19 14:47 | External Medical Summary ---
:1960 Author Organization [employer] Care Team Providers Name Role Phone Cris Mathew Provider Role Unavailable Allergies No Known Allergies Problems Problem Type Condition ICD-9 Code Onset Dates Condition Status Problem COPD (chronic obstructive 496 Active pulmonary disease) Problem Depression 311 Active Problem Tobacco use 305.1 Active Medications No Known Medications Results No Known Results Summary Purpose [employer] Submission
--- OUTSIDE RECORDS SUMMARY | 2017-10-19 14:47 | External Medical Summary ---
:1960 Author Organization [employer] Care Team Providers Name Role Phone Cris Mathew Provider Role Unavailable Allergies No Known Allergies Problems Problem Type Condition Code Onset Dates Condition Status Problem Pneumonia 486 Active Problem Tobacco use 305.1 Active Problem DDD (degenerative disc disease) 722.6 Active Problem COPD (chronic obstructive pulmonary 496 Active disease) Problem Depression 311 Active Medications Medication Code System Code Instructions Start End Date Status Dosage Date Tizanidine HCl [facility] [address]6064-887 4 MG Orally October 02, 2 tablets 0-10 twice a day 2014 Results No Known Results Summary Purpose [employer] Submission
--- OUTSIDE RECORDS SUMMARY | 2017-10-19 14:47 | External Medical Summary ---
:1960 Author Name GENERATED, SYSTEM Care Team Providers Name Role Phone GRACIE SERRANO KIMBERLEY Primary Care Provider [phone] Reason For Visit Chief Complaint ABD PAIN Social History Functional Status Vital Signs Results Chemistry from 09/02/2016 2:45 [id number] MMOL/L (136-145 MMOL/L) POTASSIUM3.8 MMOL/L (3.5-5.1 MMOL/L) HPXZMADZ473 MMOL/L (98-107 MMOL/L) RIH404.9 MMOL/L (21.0-32.0 MMOL/L) *ANION GAP10.1 MMOL/L (8.0-16.0 MMOL/L) BUN6 MG/DL L (7-18 MG/DL) CREATININE0.92 MG/DL (0.55-1.02 MG/DL) *BUN/CREATININE RATIO6.5 L (9.1-17.0 ) [id number] MG/DL H (65-99 MG/DL) CALCIUM9.0 MG/DL (8.5-10.1 MG/DL) BILIRUBIN TOTAL0.20 MG/DL (0.20-1.00 MG/DL) TOTAL PROTEIN7.7 GM/DL (6.4-8.2 GM/DL) ALBUMIN3.3 GM/DL L (3.4-5.0 GM/DL) *GLOBULIN4.4 GM/DL H (2.3-3.5 GM/DL) *A/G RATIO0.8 MG/DL L (1.5-2.2 MG/DL) ALK PHOS26 U/L L (46-116 U/L) ALT (SGPT)18 U/L (16-63 U/L) AST (SGOT)24 U/L (15-37 U/L) KASCLY387 U/L (73-393 U/L) TROPONIN-I<0.017 NG/ML (0.000-0.056 NG/ML)Hematology from 09/02/2016 2:45 PMWBC7.4 X10e3/UL (3.6-11.2 X10e3/UL) RBC4.04 X10e6/UL (3.63-4.92 X10e6/UL) BMHOKXYCAU44.5 G/DL (11.0-14.3 G/DL) HUBPGYRDPE93.5 % (31.2-41.9 %) *MCV95.4 FL (79.0-98.0 FL) *MCH33.5 PG H (27.0-33.0 PG) *MCHC35.1 G/DL (32.0-36.0 G/DL) *RDW14.3 % (12.3-17.0 %) *RDWSD48.1 H (37.1-47.8 ) UYCMRIDO570 X10e3/UL (159-386 X10e3/UL) *MPV6.8 FL L (7.4-10.4 FL) AUTOMATED DIFFPERFORMED (Reference Range: not available) SEGS57.2 % (Reference Range: not available) *DOYRFJECMFA19.2 % (Reference Range: not available) *MONOCYTES6.5 % (Reference Range: not available) *EOSINOPHILS1.1 % (Reference Range: not available) *BASOPHILS1.0 % (Reference Range: not available) *ABSOLUTE NEUTROPHILS4.20 X10e3/UL (1.80-7.80 X10e3/UL) *ABSOLUTE LYMPHOCYTES2.50 X10e3/UL (1.00-3.00 X10e3/UL) *ABSOLUTE MONOCYTES0.50 X10e3/UL (0.30-1.00 X10e3/UL) *ABSOLUTE EOSINOPHILS0.10 X10e3/UL (0.00-0.50 X10e3/UL) *ABSOLUTE BASOPHILS0.10 X10e3/UL (0.00-0.20 X10e3/UL)Urinalysis from 09/02/2016 2 :15 PM*URINE COLORYELLOW (STRAW/YELL/DK YELL ) *URINE APPEARANCECLEAR (CLEAR ) URINE PH6.5 (5.0-8.0 ) URINE SPECIFIC GRAVITY<1.005 (<=1.005->=1.030 ) *URINE GLUCOSENEGATIVE MG/DL (NEGATIVE MG/DL) *URINE BILIRUBINNEGATIVE (NEGATIVE ) *URINE KETONESNEGATIVE MG/DL (NEGATIVE MG/DL) *URINE BLOODNEGATIVE (NEGATIVE ) *URINE PROTEINNEGATIVE MG/DL (NEGATIVE MG/DL) *URINE UROBILINOGEN1.0 EU/DL (0.2-1.0 EU/DL) *URINE NITRITESNEGATIVE (NEGATIVE ) *URINE LEUKOCYTESNEGATIVE (NEGATIVE )DX Radiology from 09/02/2016 4:11 PMCHEST 1 VIEWHistory: ruq pain . Technique: 1 view chest performed Priors: 04/10/2016 Findings: The heart size is within normal limits. No acute infiltrate, pneumothorax, or pleural effusion is identified. Impression: No evidence of acute cardiopulmonary process. Electronically signed by: Josemanuel Flor MD Dictated: 09/03/2016 12:11 (Reference Range: not available) CT Scan from 09/02/2016 3:20 PMCT ABD/PELVIS W/CONTRASTHistory: Constant right upper quadrant pain. Pain began 3 days ago. Nausea and vomiting. Diarrhea. Technique: Post contrast images were performed after the administration of 95 milliliters of Isovue intravenous contrast. Priors: 03/08/15 Findings: Abdomen Lung bases: Clear Liver: Normal density. No definable mass. Spleen: Normal. Pancreas: No discrete mass or inflammatory process. Gallbladder and biliary tract: The gallbladder appears normal. The common duct is dilated at approximately 9 millimeters. This is similar to the prior study but of uncertain etiology. Correlation with liver enzymes is recommended. Adrenal glands: Normal. Kidneys: Normal enhancement. Several small low-attenuation lesions in the kidneys are too small accurately characterize but likely represent cysts. Small amount of high attenuation material in the renal collecting systems is consistent with a small amount of excreted contrast material. This limits evaluation for renal calculi. Urinary Bladder: Normal. Aorta: Normal in caliber. No periaortic lymphadenopathy. Bowel and Mesentery: Grossly normal. No findings of appendicitis. Ascites: None. Pelvis Lymphadenopathy: None. Reproductive: Hysterectomy Osseous Structures: No suspicious findings. Impression: There is mild dilatation the common duct. This is similar or slightly increased in size compared prior study. Correlation with liver enzymes recommended. The study is otherwise essentially unremarkable. Electronically signed by: Lisandro Cosme MD Dictated: 09/02/2016 15:41 (Reference Range: not available) Problems Encounter Diagnosis [...] Reactions, Alerts This section is sales representative womens health of the current allergy information, at the [...]
--- OUTSIDE RECORDS SUMMARY | 2017-10-19 14:48 | External Medical Summary | Summary of Care ---
:1960 Author Name Errol Horvath D.O. Address [address] [place], [place] [id number] Care Team Providers Name Role Phone Errol Horvath D.O. Unavailable Unavailable Freedom Douglass M.D. Unavailable Unavailable Cris Mathew Unavailable Unavailable Dominic [...] Status: Active Dyspnea (786.09, R06.00) Status: Active Bursitis, hip, left (726.5, M70.72) Status: Active Acute pain of left hip (719.45, M25.552) Status: Active Gastroesophageal reflux disease (530.81, K21.9) Status: Active Abdominal pain, right lateral (789.09, R10.9) Status: Active Abdominal tenderness, right lower quadrant (789.63, R10.813) Status: Active Medications Name Dates Details TiZANidine [...] 0 Errol Horvath D.O. Start 02-Sep-2016 Active Allergies and Adverse Reactions Name Dates Details 81 TBEC (Allergy) Status: Active Codeine Derivatives (Allergy) [...] ML Intramuscular Suspension on: Feb-2014 Lot #: [id number] Family History Unknown Family Member Name Dates [...] unknown Vital Signs Date Test Result Details 02-Sep-2016 10:05 BP Systolic 144 mm[Hg] Status: Comments: Location: LUE; Position: Sitting BP Diastolic 82 mm[Hg] Status: Comments: Location: LUE; Position: Sitting Heart Rate 88 /min Status: Comments: Location: [...] Provider: Dominic Pierce M.D. On 21-Dec-2017 09:00 Interventions Provided Medication ChangesMeloxicam 15 MG Oral Tablet - Start Instructions Name Dates Details Instructions not documented Encounters Appointment; Dominic Pierce M.D. On 05-Apr-2016 Encounter Diagnosis: Problem not documented 10:30 Appointment; Renee Jay A.P.R.N. On 07-Mar-2016 Encounter Diagnosis: Problem not documented 10:00 Appointment; Sukhjinder Figueroa M.D. On 02-Feb-2016 Encounter Diagnosis: Problem not documented 09:30 Appointment; Feredom Douglass M.D. On 10-Dec-2015 Encounter Diagnosis: Problem not documented 10:15 Appointment; Dominic Pierce M.D. On Encounter Diagnosis: Problem not documented 08:00 Appointment; Dominic Pierce M.D. On Encounter Diagnosis: Problem not documented 09:00 Appointment; Dominic Pierce M.D. On 28-May-2015 Encounter Diagnosis: Problem not documented 10:00 Appointment; Nishant Clarke, PEunice On 13-Feb-2015 Encounter Diagnosis: Problem not documented 11:30 Appointment; Nishant Clarke, P.ASanta On 09-Feb-2015 Encounter Diagnosis: Problem not documented [...]
--- OUTSIDE RECORDS SUMMARY | 2017-10-19 14:48 | External Medical Summary ---
[...] Active disease) Problem Depression 311 Active Medications No Known Medications Results No Known Results Summary Purpose eClinicalWorks Submission
--- OUTSIDE RECORDS SUMMARY | 2017-10-19 14:48 | External Medical Summary | Summary of Care ---
:1960 Author Name Renee Jay APRN Address [address] Unavailable [place], [place] [id number] Care Team Providers Name Role Phone Renee Jay APRN Unavailable Unavailable Freedom Douglass M.D. Unavailable Unavailable [...] Z71.6) Status: Active Osteoarthritis of knee (715.36, M17.9) [...] right hip pain (719.45, M25.551) Status: Active Acute pain of left hip (719.45, M25.552) Status: Active Bursitis of left hip (726.5, M70.72) Status: Active Bursitis of right hip (726.5, M70.71) Status: Active Osteoporosis (733.00, M81.0) Status: Active Chronic viral hepatitis C (070.54, B18.2) Status: Active Chronic use of opiate drugs therapeutic purposes (V58.69, Z79.899) Status: Active Rib pain on right side (786.50, R07.81) Status: Active Dyspnea (786.09, R06.00) Status: Active Medications Name Dates Details Zolpidem Tartrate 10 MG Oral Tablet TAKE 1 TABLET AT BEDTIME NEEDED FOR SLEEP. Quantity: 30 Refills: 1 Start 28-Apr-2011 Active TiZANidine HCl - 4 MG Oral Tablet TAKE 1 TABLET 3 TIMES DAILY NEEDED. Refills: 0 Start 13-May-2014 Active Percocet 10-325 MG Oral Tablet Refills: 0 Start 09-Jan-2015 Active Omeprazole 20 MG Oral Capsule Delayed [...] Quantity: 6 Refills: 0 Start 07-Mar-2016 Active Allergies and Adverse Reactions Name Dates [...] ML Intramuscular Suspension on: Feb-2014 Lot #: [id number] Family History Unknown Family Member Name Dates [...] unknown Vital Signs Date Test Result Details 07-Mar-2016 10:03 BP Systolic 108 mm[Hg] Status: Comments: Location: ; Position: BP Diastolic 72 mm[Hg] Status: Comments: Location: ; Position: Temperature 97.9 f Status: Comments: Method: Heart Rate 97 /min Status: Comments: Location: ; Physical Findings 94 Status: Comments: O2 Saturation Results Date Description Value Details Results not documented Plan of Care Name Dates Details Planned Observations Planned Goals not documented Planned Encounters Appointment; Provider: Dominic Pierce M.D. On 21-Dec-2017 09:00 Instructions Name Dates Details Instructions not documented Encounters Appointment; Sukhjinder Figueroa M.D. On 02-Feb-2016 Encounter [...] Problem not documented 11:30 Appointment; Nishant Clarke PSantaASanta On 09-Feb-2015 Encounter Diagnosis: Problem not documented 10:00 Appointment; Osman Greenfield M.D. On 02-Feb-2015 Encounter Diagnosis: Problem not documented 08:30 Appointment; Michelle Lizama On 02-Feb-2015 Encounter Diagnosis: Problem not documented 08:00 Appointment; Nishant Clarke PSantaASanta On 09-Jan-2015 Encounter Diagnosis: Problem not documented [...]
--- OUTSIDE RECORDS SUMMARY | 2017-10-19 14:48 | External Medical Summary ---
:1960 Author Organization [facility] Care Team Providers Name Role Phone Cris Mathew Provider Role Unavailable Allergies No Known Allergies Problems Problem Type Condition ICD-9 Code Onset Dates Condition Status Problem COPD (chronic obstructive 496 Active pulmonary disease) Problem Depression 311 Active Problem Tobacco use 305.1 Active Medications No Known Medications Results No Known Results Summary Purpose [employer] Submission
--- OUTSIDE RECORDS SUMMARY | 2017-10-19 14:48 | External Medical Summary ---
:1960 Author Organization [employer] [facility] [employer] Care Team Providers Name Role Phone Lalita Vuong Provider Role Unavailable Allergies No Known Allergies Problems Problem Type Condition ICD-9 Code Onset Dates Condition Status Problem COPD (chronic obstructive 496 Active pulmonary disease) Problem Depression 311 Active Problem Tobacco use 305.1 Active Assessment Female pelvic pain 625.9 Active Medications No Known Medications Results No Known Results Summary Purpose [facility] [employer] Submission
--- OUTSIDE RECORDS SUMMARY | 2017-10-19 14:48 | External Medical Summary | Summary of Care ---
:1960 Author Name Dominic Pierce M.D. Address Unavailable Unavailable , Care Team Providers Name Role Phone Freedom Douglass M.D. Unavailable Unavailable Dominic Pierce M.D. Unavailable Unavailable Cris Mathew Unavailable Unavailable [...] Bursitis, hip, left (726.5, M70.72) Status: Active Medications Name Dates Details TiZANidine [...] Quantity: 30 Refills: 3 Freedom Douglass M.D. A Start 10-Dec-2015 Active Ondansetron 4 MG Oral [...] ML Intramuscular Suspension on: Feb-2014 Lot #: [id number] Family History Unknown Family Member Name Dates [...] unknown Vital Signs Date Test Result Details 05-Apr-2016 10:48 BP Systolic 99 mm[Hg] Status: Comments: Location: ; Position: BP Diastolic 62 mm[Hg] Status: Comments: Location: ; Position: Heart Rate 89 /min Status: Comments: Location: ; Height 63 in Status: Results Date Description Value Details Results not documented Plan of Care Name Dates Details Planned Observations Planned Goals not documented Planned Encounters Appointment; Provider: Dominic Pierce M.D. On 21-Dec-2017 09:00 Appointment; Provider: Dominic Pierce M.D. On 19-Apr-2016 11:00 Instructions Name Dates Details Instructions not documented Encounters Appointment; Renee Jay A.P.R.N. On 07-Mar-2016 Encounter [...]
--- OUTSIDE RECORDS SUMMARY | 2017-10-19 14:48 | External Medical Summary ---
[...] stenosis of lumbar region M48.06 Active Assessment Left hip pain M25.552 Active Problem COPD (chronic obstructive pulmonary J44.9 Active disease) Problem DDD (degenerative disc disease), M51.36 Active lumbar Medications Medication Code Code Instructions Start End Status Dosage System Date Date Tizanidine HCl ND 08483630008 4 MG TAKE TWO TABLETS BY MOUTH [place] [address]-04 8 MG Orally Elba as every 6 to 8 2014 directed hours Amitriptyline NDC 0 10 MG Orally at 1 tablet HCl bedtime Percocet NDC 0 5-325 MG Orally 1 tablet three times [place] [address]-62 5 % Externally Mar 10 patch to Once a day 2014 skin remove after 12 hours Procedures Procedure Coding System Code Date X-ray Exam Hip Uni 2-3 Views CPT-4 61208 Apr 04, 2016 OFFICE VISIT EST PATIENT LEVEL 3 CPT-4 98791 Apr 04, 2016 X-ray Exam Hip Uni 2-3 Views CPT-4 78753 Apr 04, 2016 Vital Signs Date/Time: Apr 04, 2016 BMI 19.77 Index Weight 111.6 lbs Height 63 in Blood Pressure Diastolic 70 mm Hg Blood Pressure Systolic 116 mm Hg Cardiac Monitoring Heart Rate 72 /min Temperature 98.3 F Oximetry 98 % Respiratory Rate 18 /min Results Name Result Date Reference Range Unit Abnormality Flag X Ray : Hip, Left, 2-3 Views w/ pelvis Summary Purpose eClinicalWorks Submission
--- OUTSIDE RECORDS SUMMARY | 2017-10-19 14:48 | External Medical Summary ---
:1960 Author Organization [facility] Address [address] [place], [place] [address] Care Team Providers Name Role Phone Leslie Kraft Unavailable Unavailable PROBLEMS Type Condition ICD9-CM [id number] Onset Condition SNOMED Code Code Code Dates Status Problem Spinal stenosis M48.06 Active 06026459 of lumbar region Problem COPD (chronic J44.9 Active 07203129 obstructive pulmonary disease) Problem DDD (degenerative M51.36 Active 60029447 disc disease), lumbar Assessment Pain of lumbar M54.5 Jul, Active 369058900 spine 2017 Assessment Pain in thoracic M54.6 Jul, Active 197746870 spine 2017 Assessment Unspecified fall, W19.XXXA Jul, Active 2313963 initial encounter 2017 Assessment Left hip pain M25.552 Jul, Active 958270529 2017 Problem Fibromyalgia M79.7 Active 542058161 Problem GERD K21.9 Active 011207969 (gastroesophageal reflux disease) Problem Iron deficiency D50.9 Active 50262015 anemia Problem Hepatitis C B19.20 Active 72482195 Problem Cigarette F17.210 Active 013762292 nicotine dependence Problem Depression F32.9 Active 575814948 ALLERGIES Substance Reaction Event Type Date Status SULFA Unknown Drug Allergy Jul, Active PredniSONE Unknown Drug Allergy Jul, Active Penicillin G Benzathine Unknown Drug Allergy Jul, Active Codeine Sulfate Unknown Drug Allergy Jul, Active SOCIAL HISTORY No smoking Hx information available PLAN OF CARE Activity Details Pending Test X Ray : Spine Thoracic Complete Pending Test X Ray : Spine Lumbar 2 View Limited Pending Test X Ray : Hip, Left, 2-3 Views w/ pelvis prn,Reason: VITAL SIGNS Height 5 ft 3 in in 2016-08-03 Weight 114 lb 2 oz lbs 2016-08-03 BMI 20.21 kg/m2 2016-08-03 Temperature 98.6 degrees Fahrenheit 2016-08-03 Heart Rate 92 /min 2016-08-03 Oximetry 98 % 2016-08-03 Blood pressure systolic 118 mm Hg 2016-08-03 Blood pressure diastolic 76 mm Hg 2016-08-03 MEDICATIONS Medication Instructions Dosage Frequency Start End Duration Status Date Date Percocet 5-325 MG Orally three 1 tablet as 8h Active times a day needed Amitriptyline HCl Orally at 1 tablet Active 10 MG bedtime Lidocaine 5 % Externally Once 1 patch to 24h Mar, 10 days Active a day skin remove 2014 after 12 hours Zofran ODT 8 MG Orally every 6 as directed Aug, 30 days Active to 8 hours 2014 Tizanidine HCl 4 orally every 6 1 tablet Oct, 30 days Active MG hours as needed 2016 RESULTS Name Result Date Reference Range X Ray : Spine Thoracic Complete 2016-08-03 X Ray : Spine Lumbar 2 View Limited 2016-08-03 X Ray : Hip, Left, 2-3 Views w/ pelvis 2016-08-03 PROCEDURES Procedure Date Ordered Related Diagnosis Body Site X-ray Exam Hip Uni 2-3 Views August 03, 2016 X-ray Exam Hip Uni 2-3 Views August 03, 2016 METHYLPREDNISOLONE 80 MG INJ August 03, 2016 OFFICE VISIT EST PATIENT LEVEL 3 August 03, 2016 THERPROPHDIAG INJ, SCIM August 03, 2016 X-Ray Thoracic Spine August 03, 2016 X-Ray Thoracic Spine August 03, 2016 X-Ray Lower Spine August 03, 2016 X-Ray Lower Spine August 03, 2016 IMMUNIZATIONS Vaccine Route Administration Date Status Methylprednisolone (Depo Medrol) IM Intramuscular August 03, 2016 Administered 80mg/mL
--- OUTSIDE RECORDS SUMMARY | 2017-10-19 14:48 | External Medical Summary | Summary of Care ---
:1960 Author Name Dominic Pierce M.D. Address [address] [place], [place] [id number] Care Team Providers Name Role Phone Sukhjinder [...] Active Chronic diarrhea (787.91, K52.9) Status: Active Status post right knee replacement (V43.65, Z96.651) Status: Active Arthralgia of right hip (719.45, M25.551) Status: Active Medications Name Dates Details Abilify [...] Refills: 0 Sukhjinder Figueroa M.D. Started 07-Mar-2013 [id number] GM Tube HydrOXYzine HCl - 10 MG [...] and Adverse Reactions Name Dates Details [facility] Status: Active Codeine Derivatives Status: [...] Synovectomy History of Appendectomy History of Hysterectomy ORTHO KNEE RIGHT (3 VIEWS ONLY) Ordered:28-May-2015 Immunization Name Dates Details Fluzone Quadrivalent 0.5 ML Intramuscular Suspension Administered on:Feb-2014 Lot #: [id number] Family History Unknown Family Member Name Dates [...] unknown Vital Signs Date Test Result Details No Known Vitals to report Results Date Description Value Details Results not [...] not documented Encounters Appointment; Dominic Pierce On 28-May-2015 Encounter Diagnosis: Problem not documented 10:00 Appointment; Nishant Clarke On 13-Feb-2015 Encounter Diagnosis: [...] Diagnosis: Problem not documented 09:50 Appointment; Sukhjinder iFgueroa On 28-Aug-2014 Encounter Diagnosis: Problem not documented [...]
[2017-10-19] MEDS ORDERED: MECLIZINE 25 MG TABLET PO ONE (14:49)
--- OUTSIDE RECORDS SUMMARY | 2017-10-19 14:49 | External Medical Summary ---
:1960 Author Organization [employer] Care Team Providers Name Role Phone Quincy Cris Provider Role Unavailable Allergies No Known Allergies Problems Problem Type Condition ICD-9 Code Onset Dates Condition Status Problem Tobacco use 305.1 Active Problem COPD (chronic obstructive 496 Active pulmonary disease) Problem DDD (degenerative disc disease) 722.6 Active Problem Depression 311 Active Assessment Colitis 558.9 Active Medications Medication Code Code Instructions Start End Date Status Dosage System Date Zofran ODT NDC 24093-87 8 MG Orally August 22, as directed 70-00 every 6 to 8 2015 hours Lyrica NDC 99552-54 150 MG Orally August 22, 1 capsule 16-41 Twice a day 2014 [place] [address]-47 60 MG Orally 1 tablet 06-01 Once a day with food Cephalexin NDC 39257-78 500 MG Orally 1 capsule 47-01 Twice a day Lamotrigine NDC 0 200 MG Orally 1 tablet once a day Ambien NDC 68391-24 10 MG Orally at 1 tablet 21-31 bedtime Metronidazole NDC 84673-10 500 MG Orally October 27November 10, 1 tablet 32-04 every 8 hrs 2014 2014 Percocet NDC 71109-51 7.5-325 MG October 27November 11, 1 tablet as 62-72 Orally every 6 2014 2014 needed hrs Ibuprofen NDC 27729-12 600 MG Orally 1 tablet 58-00 Three times a day HydrOXYzine HCl NDC 50832-59 50 MG Orally not defined 62-01 three times daily Cymbalta NDC 30480-36 30 MG Orally 1 capsule 40-01 [place] [address]-13 4 MG Orally 1 tablet as 00-10 twice a day needed Procedures Procedure Coding System Code Date STOOL CULTR AEROBIC BACT EA.[facility] CPT-4 41240 October 30, 2014 OVA AND PARASITES SMEARS.[facility] CPT-4 81909 October 30, 2014 FECES CULTURE AEROBIC BACT.[facility] CPT-4 00842 October 30, 2014 Results Name Result Date Reference Range Unit Abnormality Flag Stool Culture with Shiga toxin Summary Purpose eClinicalWorks Submission
--- OUTSIDE RECORDS SUMMARY | 2017-10-19 14:49 | External Medical Summary ---
[...] Active Assessment Chronic pain 338.29 Active Assessment Hepatitis C 070.70 Active Assessment Depression 311 Active Medications Medication Code Code Instructions Start End Date Status [place] [address]-43 10 MG Orally at 1 [place] [address]-92 60 MG Orally 1 tablet 06-01 Once a day with food Cymbalta NDC 85923-95 30 MG Orally 1 capsule 40-01 [place] [address]-15 150 MG Orally August 22, 1 capsule 16-41 Twice a day 2014 Ibuprofen NDC 31788-53 800 MG Orally 1 tablet 62-00 Three times [place] [address]-45 50 MG Orally not defined 62-01 [place] [address]-13 10-325 MG Orally Jan 05Jan 10, 1 tablet as 18-30 every 6 hrs 2014 2014 [place] [address]-32 8 MG Orally August 22, as directed 70-00 every 6 to 8 2015 hours Lamotrigine NDC 0 200 MG Orally 1 tablet once a day Procedures Procedure Coding System Code Date OFFICE VISIT EST PATIENT LEVEL 3 CPT-4 45933 Jan 05, 2015 Vital Signs Date/Time: Jan 05, 2015 BMI 2.09 Index Weight 11.8 lbs Height 63 in Blood Pressure Diastolic 78 mm Hg Blood Pressure Systolic 126 mm Hg Cardiac Monitoring Heart Rate 76 /min Temperature 97.9 F Respiratory Rate 18 /min Results No Known Results Summary Purpose eClinicalWorks Submission
--- OUTSIDE RECORDS SUMMARY | 2017-10-19 14:49 | External Medical Summary ---
:1960 Author Organization [employer]Clinical[employer] Care Team Providers Name Role Phone Cris Mathew Provider Role Unavailable Allergies No Known Allergies Problems Problem Type Condition Code Onset Dates Condition Status Problem Spinal stenosis of lumbar region M48.06 Active Problem Tobacco use 305.1 Active Problem DDD (degenerative disc disease), M51.36 Active lumbar Problem COPD (chronic obstructive pulmonary 496 Active disease) Problem Depression 311 Active Medications Medication Code System Code Instructions Start Date End Date Status Dosage Percocet [facility] 58584-775 10-325 MG Orally Jan 05, Jan 10, 1 tablet as 8-30 every 6 hrs 2014 2014 needed Results No Known Results Summary Purpose eClinicalWorks Submission
--- OUTSIDE RECORDS SUMMARY | 2017-10-19 14:49 | External Medical Summary | Summary of Care ---
:1960 Author Name Berny Gallo Address [address] [place], [place] [address] Care Team Providers Name Role Phone Sukhjinder [...] of right hip (719.45, M25.551) Status: Active Patellofemoral stress syndrome of both knees (719.46, M22.2X1) Status: Active Medications Name Dates Details Abilify [...] Refills: 0 Sukhjinder Figueroa M.D. Started 07-Mar-2013 Izyjlz562 GM Tube HydrOXYzine HCl - 10 MG [...] Allergies and Adverse Reactions Name Dates Details [facility] Status: Active Codeine Derivatives Status: Active Ibuprofen [...] of Appendectomy History of Hysterectomy ORTHO KNEE BILATERAL Ordered: Immunization Name Dates Details Fluzone Quadrivalent 0.5 ML Intramuscular Suspension Administered on:Feb-2014 Lot #: [id number] Family History Unknown Family Member Name Dates [...] unknown Vital Signs Date Test Result Details 09:19 BP Systolic 100 mm[Hg] Status: BP Diastolic 64 mm[Hg] Status: Heart Rate 80 /min Status: Respiration Rate 16 /min Status: Results Date Description Value Details Results [...] not documented Encounters Appointment; Dominic Pierce On Encounter Diagnosis: Problem not documented 09:00 Appointment; Dominic Pierce On 28-May-2015 Encounter Diagnosis: [...]
--- OUTSIDE RECORDS SUMMARY | 2017-10-19 14:49 | External Medical Summary ---
[...] Start Date End Date Status Dosage Percocet [facility] [address]345-049 7.5-325 MG Orally November 20, November 27, 1 tablet as 2-72 every 6 hrs 2014 2014 needed Results No Known Results Summary Purpose eClinicalWorks Submission
--- OUTSIDE RECORDS SUMMARY | 2017-10-19 14:49 | External Medical Summary | Summary of Care ---
:1960 Author Name Osman Greenfield M.D. Address [address] [place], [place] [address] Care Team Providers Name Role Phone Sukhjinder [...] Bipolar affective (296.80, F31.9) Status: Active Chronic viral hepatitis C (070.54, B18.2) Status: Active Chronic diarrhea (787.91, K52.9) Status: Active Colon polyp (211.3, K63.5) Status: Active Medications Name Dates Details Abilify [...] Refills: 0 Sukhjinder Figueroa M.D. Started 07-Mar-2013 [id number] GM Tube HydrOXYzine HCl - 10 MG [...] Allergies and Adverse Reactions Name Dates Details [facility] Status: Active Codeine Derivatives Status: [...] ML Intramuscular Suspension Administered on:Feb-2014 Lot #: [id number] Family History Unknown Family Member Name Dates [...] m2 Status: Results Date Description Value Details 09-Jan-2015 Comprehensive 11:41 Metabolic Panel 1212 SODIUM 138 mmol/L Range: 133-144 (Better) POTASSIUM 4.2 mmol/L Range: 3.5-5.1 (Better) CHLORIDE 102 mmol/L Range: 98-110 (Better) CARBON DIOXIDE 26.3 mmol/L Range: 23.0-33.0 (Better) ANION GAP 10 mmol/L Range: 6-16 (Better) BUN 6 mg/dL (Below Range: 7-18 low threshold) CREATININE, SERUM 0.96 mg/dL Range: 0.55-1.02 (Better) Comments: Please note new reference ranges effective 2014.- ---- BUN:CREATININE RATIO 6 (Better) EST GFR, >60 ml/min Range: >60 TAIWANESE (Better) EST GFR, NON-AFR >60 ml/min Range: >60 [place]AIWANESE (Better) Comments: EST GFR is reported in ml/min per 1.73 m2 of body surface area. For -[place], please multiple result by 1.2.----- GLUCOSE 113 mg/dL Range: 70-100 (Above high threshold) ALK PHOSPHATASE 28 U/L (Below Range: 46-116 low threshold) TOTAL BILIRUBIN 0.30 mg/dL Range: 0.20-1.00 (Better) AST 22 U/L (Better) Range: 8-35 ALT 24 U/L (Better) Range: 14-59 Comments: Please note new reference ranges. Effective 07/17/2014.----- ALBUMIN 3.3 g/dL (Below Range: 3.4-5.0 low threshold) TOTAL PROTEIN 7.2 g/dL Range: 6.4-8.2 (Better) A/G RATIO 0.8 units Range: 1.0-1.8 (Below low threshold) CALCIUM 8.7 mg/dL Range: 8.5-10.1 (Better) 11:43 CBC w/ Auto Diff 7150 WBC 6.8 K/uL Range: 4.5-11.0 (Better) RBC 3.97 mil/uL Range: 3.60-5.00 (Better) HGB 13.4 g/dL Range: 12.0-16.0 (Better) HCT 40.2 % (Better) Range: 36.0-48.0 MCV 101.4 fL (Above Range: 80.0-99.0 high threshold) MCH 33.9 pg (Above Range: 27.3-32.5 high threshold) MCHC 33.4 % (Better) Range: 32.0-36.0 RDW 13.9 % (Better) Range: 11.6-14.8 PLATELETS 319 K/uL Range: 150-400 (Better) MPV 8.7 fL (Better) Range: 6.0-11.0 %NEUTRO 46.4 % (Better) Range: 37.0-80.0 %LYMPHS 42.6 % (Better) Range: 13.0-50.0 %MONO 5.5 % (Better) Range: 0.0-12.0 %EOS 3.6 % (Better) Range: 0.0-7.0 %BASO 0.5 % (Better) Range: 0.0-2.5 %GILA 1.5 % (Better) Range: 0.0-5.0 NEUTRO 3.1 K/uL Range: 2.0-6.9 (Better) LYMPHS 2.9 K/uL Range: 0.6-3.4 (Better) MONOS 0.4 K/uL Range: 0.0-0.9 (Better) EOS 0.2 K/uL Range: 0.0-0.7 (Better) BASO 0.0 K/uL Range: 0.0-0.2 (Better) 13-Jan-2015 Hepatitis C Viral RNA, Comments: Quest performed at: [facility], [employer] [facility], [address] [place] [address], [id number], Analyst [employer] Bever[employer]: Willem Flores 08:59 Quantitative, RT- PCR Noah JCQuest Collection Date/Time: [id number] Results Received Date/Time: [id number] Reported Date/Time: [id number] w/Reflex to [id number] HCV RNA, QUANTITATIVE [id number] IU/mL Comments: [[facility]]----- REAL TIME PCR (Above high threshold) HCV RNA, QUANTITATIVE 6.73 Log IU/mL Comments: REFERENCE RANGE: HCV RNA, PCR, QUANT: <15 IU/mL HCV RNA, PCR, QUANT: <1.18 LogIU/mLThis test was performed using the PRINCESS(R) AmpliPrep/PRINCESS(R )TaqMan(R) HCV Te REAL TIME PCR (Above high st, v2.0.The performance characteristics of this assay have beendetermined by [employer]. Performance characteristicsrefer to the analytical performance of the test.For additional information, pl threshold) ease refer tohttp://education.[employer]/faq/DRL88n9( This link is being provided for informational/educational purposesonly.)[[facility]]--- -- 15-Jan-2015 Hepatitis C Viral RNA, Comments: [facility] performed at: [facility], [employer], [address] [place] [address], [id number], Analyst Food And Beverage: Willem Flores 13:14 Genotype, LIPA [id number] Noah MDQuest Collection Date/Time: [id number] Results Received Date/Time: [id number] Reported Date/Time: [id number] HCV GENOTYPE, LIPA GENOTYPE 1a Comments: The method used in this test is RT-PCR and reversehybridization (Line Probe) of the 5' UTR and coreregion of the HCV genome.The test was developed and its performancecharacteristics have been determined (Better) by[employer]. It has not been clearedor approved by the U.S. Food and DrugAdministration. The FDA has determined thatsuch clearance or approval is not necessary.Performance characteristics refer to theanalytical performance of the test.http:// education.[employer] /faq/HCVGenotyping[[facility]]----- Plan of Care Planned Observations Name Dates Details Planned Goals not documented Goal Planned Encounters Appointment; Provider: Dominic Pierce On 21-Dec-2017 09:00 Appointment; Provider: Nishant Clarke On 09-Feb-2015 10:00 Appointment; Provider: Berny Cotter On 30-Jan-2015 09:00 Appointment; Provider: Dominic Pierce On 05-Sep-2011 08:00 Appointment; Provider: Elisha Ruvalcaba On 16-Sep-2009 07:00 Appointment; Provider: Elisha Ruvalcaba On 28-Aug-2009 09:30 Appointment; Provider: Florentin Redding On 11-Aug-2008 14:15 Appointment; Provider: Florentin Redding On 28-Jul-2008 14:15 Appointment; Provider: Florentin Redding On 14-Jul-2008 14:15 Appointment; Provider: Rodrigo Lopez On 30-Jun-2007 07:00 Instructions Instructions not documented Encounters Appointment; Osman Greenfield On 02-Feb-2015 Encounter Diagnosis: [...]
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
--- OUTSIDE RECORDS SUMMARY | 2017-10-19 14:49 | External Medical Summary | Summary of Care ---
:1960 Author Name Dominic Pierce M.D. Address [address] [place], [place] [address] Care Team Providers Name Role Phone Sukhjinder [...] Refills: 0 Sukhjinder Figueroa M.D. Started 07-Mar-2013 [id number] GM Tube HydrOXYzine HCl - 10 MG [...] Adverse Reactions Name Dates Details [facility] Status: Active Codeine Derivatives Status: [...] ML Intramuscular Suspension Administered on:Feb-2014 Lot #: [id number] Family History Unknown Family Member Name Dates [...] Pierce On 05-Sep-2011 08:00 Appointment; Provider: Elisha Ruvaclaba On 16-Sep-2009 07:00 Appointment; Provider: Elisha Ruvalcaba [...]
--- OUTSIDE RECORDS SUMMARY | 2017-10-19 14:50 | External Medical Summary ---
[...] Instructions Start Date End Date Status Dosage Zofran ODT [facility] [address] MG Orally every August 22, as directed 0-00 6 to 8 hours 2014 Percocet [facility] [address]-325 MG Orally Jan 05Jan 10, 1 tablet as 8-30 every 6 hrs 2014 2014 needed Results No Known Results Summary Purpose eClinicalWorks Submission
--- OUTSIDE RECORDS SUMMARY | 2017-10-19 14:50 | External Medical Summary ---
:1960 Author Organization [facility] Address [address] [place], [place] [address] Care Team Providers Name Role Phone Holly Mathewley Unavailable Unavailable PROBLEMS Type Condition ICD9-CM Code XGJ18-DM Code Onset Condition SNOMED Code Dates Status Problem Spinal stenosis M48.06 Active 47703288 of lumbar region Problem COPD (chronic J44.9 Active 65055514 obstructive pulmonary disease) Problem DDD (degenerative M51.36 Active 61374156 disc disease), lumbar Problem Fibromyalgia M79.7 Active 336228045 Problem GERD K21.9 Active 499031078 (gastroesophageal reflux disease) Problem Iron deficiency D50.9 Active 50128993 anemia Problem Hepatitis C B19.20 Active 73754277 Problem Cigarette F17.210 Active 814043645 nicotine dependence Problem Depression F32.9 Active 603489899 ALLERGIES Unknown Allergies SOCIAL HISTORY No smoking Hx information available PLAN OF CARE VITAL SIGNS MEDICATIONS Unknown Medications RESULTS No Results PROCEDURES No Known procedures IMMUNIZATIONS No Known Immunizations
--- OUTSIDE RECORDS SUMMARY | 2017-10-19 14:50 | External Medical Summary ---
:1960 Author Name [facility] Care Team Providers Name Role Phone GRACIE SERRANO KIMBERLEY Primary Care Provider [phone] Reason For Visit Chief Complaint REFLUX 530.81/K21.9,24HR PH AND MANOMETR Social History Functional Status Vital Signs Results [...] Allergies, Adverse Reactions, Alerts This section is medical billing representative of the current allergy information, at [...]
--- OUTSIDE RECORDS SUMMARY | 2017-10-19 14:50 | External Medical Summary | Summary of Care ---
:1960 Author Name Nishant Beebe Address [address] [place], [place] [address] Care Team Providers Name Role Phone Sukhjinder [...] Refills: 0 Sukhjinder Figueroa M.D. Started 07-Mar-2013 [id number] GM Tube HydrOXYzine HCl - 10 MG [...] Allergies and Adverse Reactions Name Dates Details [facility] Status: Active Codeine Derivatives Status: [...] ML Intramuscular Suspension Administered on:Feb-2014 Lot #: [id number] Family History Unknown Family Member Name Dates [...] Dominic Pierce On 21-Dec-2017 09:00 Appointment; Provider: Osman Greenfield On 02-Feb-2015 08:30 [...]
--- OUTSIDE RECORDS SUMMARY | 2017-10-19 14:50 | External Medical Summary | Summary of Care ---
:1960 Author Name Rodrigo Duran M.D. Address [address] [place] [address] Care Team Providers Name Role Phone Sukhjinder [...] Status: Active Cervicalgia (723.1, M54.2) Status: Active Back pain (724.5, M54.9) Status: Active Head ache (784.0, R51) Status: [...] obstructive pulmonary disease (496, J44.9) Status: Active Medications Name Dates Details Abilify 15 MG Oral Tablet Refills: 0 Sukhjinder Figueroa M.D. Started 01-Jul-2008 ActiveZolpidem Tartrate 10 MG Oral Tablet TAKE 1 TABLET AT BEDTIME NEEDED FOR SLEEP. Quantity: 30 Refills: 1 Started 28-Apr-2011 ActiveIbuprofen 600 MG Oral Tablet TAKE 1 TABLET TWICE A DAY WITH MEALS Quantity: 60 Refills: 0 Sukhjinder Figuerao M.D. Started 30-May-2011 ActiveVoltaren 1 % Transdermal Gel Apply 4 grams to affected area QID Quantity: 5 Refills: 0 Sukhjinder Figueroa M.D. Started 07-Mar-2013 [id number] GM Tube HydrOXYzine HCl - 10 MG Oral Tablet Take 1 tablet daily Refills: 0 Sukhjinder Figueroa M.D. Started 07-Mar-2013 ActiveGabapentin 300 MG Oral Capsule TAKE 2 CAPSULES 3 TIMES DAILY. Refills: 0 Started 13-May-2014 ActiveTiZANidine HCl - 4 MG Oral Tablet TAKE 1 TABLET 3 TIMES DAILY NEEDED. Refills: 0 Started 13-May-2014 Active Allergies and Adverse Reactions Name Dates Details [facility] Status: Active Codeine Derivatives Status: Active Ibuprofen [...] ML Intramuscular Suspension Administered on:Feb-2014 Lot #: [id number] Family History Unknown Family Member Name Dates [...]
--- OUTSIDE RECORDS SUMMARY | 2017-10-19 14:50 | External Medical Summary ---
:1960 Author Organization eClinicalWorks Care Team Providers Name Role Phone Cris Mathew Provider Role Unavailable Allergies No Known Allergies Problems Problem Type Condition ICD-9 Code Onset Dates Condition Status Problem Tobacco use 305.1 Active Problem COPD (chronic obstructive 496 Active pulmonary disease) Problem Pneumonia 486 Active Problem Depression 311 Active Assessment Acute back pain 724.5 Active Medications No Known Medications Results No Known Results Summary Purpose eClinicalWorks Submission
--- OUTSIDE RECORDS SUMMARY | 2017-10-19 14:50 | External Medical Summary ---
:1960 Author Organization [facility] Address [address] [place], [place] [address] Care Team Providers Name Role Phone Cris Mathew Unavailable Unavailable PROBLEMS Type Condition ICD9-CM Code [id number] Code Onset Condition SNOMED Code Dates Status Problem COPD (chronic J44.9 Active 60982261 obstructive pulmonary disease) Problem Iron deficiency D50.9 Active 85739552 anemia Problem Hepatitis C B19.20 Active 38304981 Problem Episode of F33.9 Active 791569419 recurrent major depressive disorder, unspecified depression episode severity Problem Spinal stenosis M48.06 Active 50621518 of lumbar region Problem DDD (degenerative M51.36 Active 86448947 disc disease), lumbar Problem EDUARDO (generalized F41.1 Active 69322994 anxiety disorder) Problem Bipolar disorder, F31.62 Active 082976496 current episode mixed, moderate Problem GERD K21.9 Active 018202445 (gastroesophageal reflux disease) Problem Cigarette F17.210 Active 025295127 nicotine dependence Problem Insomnia G47.00 Active 416343481 Problem Fibromyalgia M79.7 Active 940152712 ALLERGIES Substance Reaction Event Type Date Status SULFA unknown-childhood Drug Allergy Jun, Active Valium lowers blood pressure Drug Allergy Jun, Active PredniSONE stomach upset Drug Allergy Jun, Active Penicillin G Benzathine unknown-childhood Drug Allergy Jun, Active Codeine Sulfate rash Drug Allergy Jun, Active ENCOUNTERS Encounter Location Date Diagnosis [facility] [address] Jun, [place] [address] [facility] [address] Jun, [place] [address] [facility] [address] Jun, DDD (degenerative disc [place] disease), lumbar M51.36 ; [address] Spinal stenosis of lumbar region M48.06 ; Acute pain of right shoulder M25.511 ; Left hip pain M25.552 and EDUARDO (generalized anxiety disorder) F41.1 [facility] [address] Jun, [facility] [place] [address] [facility] [address] Jun, [facility] [place] [address] [facility] [address] May, Lymphadenopathy R59.1 [facility] Flu-[facility] symptoms R68.89 [address] [facility] [address] May, [facility] [place] [address] [facility] [address] May, [facility] [place] [address] [facility] [address] Apr, [facility] [place] [address] [facility] [address] Apr, DDD (degenerative disc [facility] [place] disease), lumbar M51.36 and [address] Spinal stenosis of lumbar region M48.06 [facility] [address] Mar, Insomnia G47.00 [facility] [place] [address] [facility] [address] Feb, Insomnia G47.00 [facility] [place] [address] [facility] [address] Feb, [facility] [place] [address] [employer] [address] Jan, Insomnia G47.00 [facility] [place] [address] [facility] [address] Dec, [facility] [place] [address] [facility] [address] Dec, Acute left-sided low back [facility] [place] pain without sciatica M54.[address] [address] [facility] [address] Dec, Left lateral knee pain [place] M25.562 ; Cigarette [address] nicotine dependence F17.210 and Insomnia G47.00 [facility] [address] Oct, HTN (hypertension) I10 [place] [address] [facility] [address] Oct, [place] [address] [facility] [address] Oct, [place] [address] [facility] [address] Oct, [place] [address] [facility] [address] Oct, [place] [address] [facility] [address] Oct, DDD (degenerative disc [place] disease), lumbar M51.36 ; [address] Spinal stenosis of lumbar region M48.06 ; Contusion of lesser toe of left foot without damage to nail, initial encounter S90.122A and Compression fx, thoracic spine, closed, initial encounter S22.000A [facility] [address] September, DDD (degenerative disc [place] disease), lumbar M51.36 and [address] Insomnia G47.00 [facility] [address] September, [place] [address] [facility] [address] Aug, [place] [address] [facility] [address] Aug, DDD (degenerative disc [place] disease), lumbar M51.36 and [address] Spinal stenosis of lumbar region M48.06 [facility] [address] Aug, [place] [address] [facility] [address] Jul, [place] [address] [facility] [address] Jul, Left hip pain M25.552 ; [facility] [place] Unspecified [place], [place] [address] encounter W19.XXXA ; Pain in thoracic spine M54.6 and Pain of lumbar spine M54.5 [facility] [address] 14 Jun, 2016 [facility] [place] [address] [facility] [address] Mar, [place] [address] [facility] [address] Mar, Left hip pain M25.552 [place] [address] [facility] [address] Mar, [place] [address] [facility] [address] Feb, Other screening mammogram [place] Z12.31 [address] [facility] [address] Feb, [place] [address] [facility] [address] Jan, [place] [address] [facility] [address] Jan, [place] [address] [facility] [address] Jan, DDD ([facility] [place] [facility] lumbar M51.36 ; [address] Iron deficiency anemia D50.9 and Encounter for immunization Z23 [facility] [address] Jan, Other screening mammogram [place] Z12.31 [address] [facility] [address] Dec, [place] [address] [facility] [address] Dec, Right hand pain M79.641 ; [place] DDD (degenerative disc [address] disease), lumbar M51.36 and Other screening mammogram Z12.31 [facility] [address] Dec, [place] [address] [facility] [address] Dec, [facility] [place] [address] [facility] [address] Nov, [facility] [place] [address] [facility] [address] Nov, [facility] [place] [address] [facility] [address] Oct, [facility] [place] [address] [facility] [address] Oct, [facility] [place] [address] [facility] [address] Oct, Herpes zoster B02.9 [place] [address] [facility] [address] Oct, Migraine headache without [place] aura G43.009 [address] [facility] [address] Oct, [facility] [place] [address] [facility] [address] 14 Oct, 2015 [place] [address] [facility] [address] Oct, Right shoulder pain M25.511 [place] ; Cervical strain S16.1XXA [address] and Mid back pain M54.9 [facility] [address] Oct, [facility] [address] [facility] [address] September, [place] [address] [facility] [address] Aug, [place] [address] [facility] [address] Jul, [place] [address] [facility] [address] Jul, Low back strain S39.012A [place] and Hepatitis C B19.20 [address] [facility] [address] 12 Feb, 2016 [facility] [place] [address] [facility] [address] Jun, Pain and swelling of left [facility] [place] upper extremity M79.602 [address] [facility] [address] May, [facility] [place] [address] [facility] [address] May, [place] [address] [facility] [address] Apr, [place] [address] [address] Apr, Hepatitis C B19.20 ; COPD [place] (chronic obstructive [address] pulmonary disease) J44.9 ; Iron deficiency E61.1 ; Encounter for immunization Z23 and DDD (degenerative disc disease), lumbar M51.36 [facility] [address] Mar, [place] [address] [facility] [address] Mar, Herpes zoster B02.9 ; DDD [place] (degenerative disc [address] disease), lumbar M51.36 and Spinal stenosis of lumbar region M48.06 [facility] [address] Mar, [place] [address] [facility] [facility] [address] Feb, [place] [address] [facility] [address] Feb, [place] [address] [facility] [facility] [address] Jan, [place] [address] [facility] [address] Jan, Chronic pain 338.29 ; [place] Fibromyalgia 729.1 and [address] Tobacco use 305.[address] [address] Jan, [place] [address] [facility] [address] Dec, Depression 311 [place] [address] [facility] [address] Dec, Hepatitis C 070.70 ; [place] Depression 311 ; Tobacco [address] use 305.1 and Chronic pain 338.29 [facility] [address] Dec, [place] [address] [facility] [address] Dec, [place] [address] [facility] [address] Dec, [place] [address] [facility] [address] Dec, [place] [address] [facility] [address] Nov, [place] [address] [facility] [address] Nov, Female pelvic pain 625.9 [place] 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 [facility] [address] Nov, [place] [address] [facility] [address] Nov, [place] [address] [facility] [address] Nov, COPD (chronic obstructive [place] pulmonary disease) 496 ; [address] Right knee pain 719.46 ; Diarrhea 787.91 ; DDD (degenerative disc disease) 722.6 and Tobacco use 305.1 [facility] [address] Nov, [place] [address] [facility] [address] Oct, Colitis 558.9 [place] [address] [facility] [address] Oct, Encounter for screening [place] mammogram for breast cancer [address] V76.12 [facility] [address] Oct, [place] [address] [facility] [address] Oct, Colitis 558.9 ; UTI (lower [place] urinary tract infection) [address] 599.0 ; Rib pain on right side 786.50 and Tobacco use 305.1 [facility] [address] Oct, [place] [address] [facility] [address] Oct, [place] [address] [facility] [address] Oct, [place] [address] [facility] [address] Oct, Dysuria 788.1 ; RUQ [place] abdominal pain 789.01 and [address] Nausea & vomiting 787.01 [facility] [address] Oct, [place] [address] [facility] [address] Oct, Encounter for screening [place] mammogram for breast cancer [address] V76.12 [facility] [address] September, [place] [address] [facility] [address] Aug, [place] [address] [facility] [address] Aug, [place] [address] [facility] [address] Aug, DDD (degenerative disc [place] disease) 722.6 ; Tobacco [address] use 305.1 and Depression 311 [facility] [address] Aug, [place] [address] [facility] [address] Jul, [place] [address] [facility] [address] Jul, [place] [address] [facility] [address] Jul, Acute back pain 724.5 [place] [address] [facility] [address] Jul, Acute back pain 724.5 [place] [address] [facility] [address] Jun, COPD (chronic obstructive [place] pulmonary disease) 496 ; [address] Pneumonia 486 ; Depression 311 and Tobacco use 305.[address] [facility] [address] May, [place] [address] [facility] [address] May, COPD (chronic obstructive [place] pulmonary disease) 496 ; [address] Pneumonia 486 and Depression 311 IMMUNIZATIONS No Known Immunizations SOCIAL HISTORY Never Assessed REASON FOR VISIT Discuss C[facility] referral, fell hurt hip and shoulder wants x ray PLAN OF CARE Activity Details Follow Up 6 Weeks Reason:F/U w/ PCP VITAL SIGNS Height 63 in 2017-06-27 Weight 117.6 lbs 2017-06-27 BMI 20.83 kg/m2 2017-06-27 Temperature 97.2 degrees Fahrenheit 2017-06-27 Heart Rate 82 /min 2017-06-27 Respiratory Rate 18 /min 2017-06-27 Oximetry 98 % 2017-06-27 Blood pressure systolic 126 mm Hg 2017-06-27 Blood pressure diastolic 78 mm Hg 2017-06-27 MEDICATIONS Medication Instructions Dosage Frequency Start End Duration Status Date Date Zofran ODT 8 MG Orally every 6 as directed Aug, 30 days Active to 8 hours 2014 Lidocaine 5 % Externally Once 1 patch to 24h Mar, 10 days Active a day skin remove 2014 after 12 hours Oxycodone-Aceta Oral four times (Schedule II 6h Active minophen 10-325 a day Drug) MG HydrOXYzine HCl Orally every 8 1 tablet as 8h Jun, day(s) Active 25 MG hrs needed 2017 Gabapentin 800 Orally three 1 capsule 8h Oct, Active MG times a day 2016 Zolpidem TAKE 1 30 Active Tartrate 10 MG TABLET BY MOUTH AT BEDTIME NEEDED FOR INSOMNIA Nicotine Step 2 Transdermal Once 1 patch to 24h 28 Active 14 MG/24HR a day skin RESULTS No Results PROCEDURES Procedure Date Ordered Result Body Site X-Ray Shoulder Jun 27, 2017 X-Ray Shoulder Jun 27, 2017 X-ray Exam Hip Uni 2-3 Views Jun 27, 2017 X-ray Exam Hip Uni 2-3 Views Jun 27, 2017 INSTRUCTIONS MEDICATIONS ADMINISTERED No Known Medications [...] History right knee replacement 2011 Hospitalization History [facility]-pneumonia 05/19/2014 Hospitalization History [facility]-- abdominal pain 10/17/2014 Hospitalization History [facility]--back pain 03/08/2015 [facility]2015 Hospitalization History [facility]-Hcjrstt respiration 03/07/2016 Hospitalization History [facility]-Jhlzikobl pain 09/02/2016 Hospitalization History [facility]-Ztbn pain 11/27/2016 Hospitalization History [facility]-Qsmyb pain 02/02/2017
--- OUTSIDE RECORDS SUMMARY | 2017-10-19 14:50 | External Medical Summary ---
:1960 Author Organization [facility] Address [address] [place], [place] [address] Care Team Providers Name Role Phone Cris Mathew Unavailable Unavailable PROBLEMS Type Condition ICD9-CM [id number] Onset Condition SNOMED Code Code Code Dates Status Problem Spinal stenosis M48.06 Active 38563964 of lumbar region Problem COPD (chronic J44.9 Active 27201279 obstructive pulmonary disease) Problem DDD (degenerative M51.36 Active 34800540 disc disease), lumbar Assessment DDD (degenerative M51.36 Aug, Active 93267300 disc disease), 2016 lumbar Problem Fibromyalgia M79.7 Active 158224033 Problem GERD K21.9 Active 201817276 (gastroesophageal reflux disease) Problem Iron deficiency D50.9 Active 11090256 anemia Problem Hepatitis C B19.20 Active 76336799 Problem Cigarette F17.210 Active 592354752 nicotine dependence Problem Depression F32.9 Active 214173325 ALLERGIES Substance Reaction Event Type Date Status SULFA Unknown Drug Allergy Aug, Active PredniSONE Unknown Drug Allergy Aug, Active Penicillin G Benzathine Unknown Drug Allergy Aug, Active Codeine Sulfate Unknown Drug Allergy Aug, Active SOCIAL HISTORY No smoking Hx information available PLAN OF CARE VITAL SIGNS Height 63 in 2016-08-24 Weight 114.2 lbs 2016-08-24 BMI 20.23 kg/m2 2016-08-24 Temperature 97.8 degrees Fahrenheit 2016-08-24 Heart Rate 80 /min 2016-08-24 Respiratory Rate 18 /min 2016-08-24 Oximetry 97 % 2016-08-24 Blood pressure systolic 114 mm Hg 2016-08-24 Blood pressure diastolic 72 mm Hg 2016-08-24 MEDICATIONS Medication Instructions Dosage Frequency Start End Duration Status Date Date Amitriptyline HCl Orally at 1 tablet Active 10 MG bedtime Percocet 10-325 Orally every 3 1/2 tablet 3h Active MG hours Meloxicam 15 MG Orally Once a 1 tablet 24h Active day Zofran ODT 8 MG Orally every 6 as directed Aug, 30 days Active to 8 hours 2014 Tizanidine HCl 4 orally every 6 1 tablet Oct, 30 days Active MG hours as needed 2016 RESULTS No Results PROCEDURES Procedure Date Ordered Related Diagnosis Body Site OFFICE VISIT EST PATIENT LEVEL 3 August 24, 2016 IMMUNIZATIONS No Known Immunizations
--- OUTSIDE RECORDS SUMMARY | 2017-10-19 14:50 | External Medical Summary ---
[...] Instructions Start Date End Date Status Dosage Jeannie [facility] [address] 10 MG Orally at 1 tablet -31 bedtime Results No Known Results Summary Purpose eClinicalWorks Submission
--- OUTSIDE RECORDS SUMMARY | 2017-10-19 14:50 | External Medical Summary ---
:1960 Author Organization [employer] Care Team Providers Name Role Phone Cris Mathew Provider Role Unavailable Allergies No Known Allergies Problems Problem Type Condition Code Onset Dates Condition Status Problem COPD (chronic obstructive pulmonary 496 Active disease) Problem Depression 311 Active Problem Tobacco use 305.1 Active Medications No Known Medications Results No Known Results Summary Purpose eClinicalWorks Submission
--- OUTSIDE RECORDS SUMMARY | 2017-10-19 14:50 | External Medical Summary ---
:1960 Author Organization [employer] Care Team Providers Name Role Phone Cris Mathew Provider Role Unavailable Allergies No Known Allergies Problems Problem Type Condition ICD-9 Code Onset Dates Condition Status Problem COPD (chronic obstructive 496 Active pulmonary disease) Problem Depression 311 Active Problem Tobacco use 305.1 Active Medications No Known Medications Results No Known Results Summary Purpose [employer] Submission
--- OUTSIDE RECORDS SUMMARY | 2017-10-19 14:50 | External Medical Summary ---
:1960 Author Organization [facility] Address [address] [place], [place] [address] Care Team Providers Name Role Phone Lelsie Kraft Unavailable Unavailable PROBLEMS Type Condition ICD9-CM Code [id number] Code Onset Condition SNOMED Code Dates Status Problem Spinal stenosis M48.06 Active 89515102 of lumbar region Problem COPD (chronic J44.9 Active 94455696 obstructive pulmonary disease) Problem DDD (degenerative M51.36 Active 07180399 disc disease), lumbar Problem Fibromyalgia M79.7 Active 378522563 Problem GERD K21.9 Active 034970932 (gastroesophageal reflux disease) Problem Iron deficiency D50.9 Active 26011640 anemia Problem Hepatitis C B19.20 Active 38716967 Problem Cigarette F17.210 Active 043033096 nicotine dependence Problem Depression F32.9 Active 297151529 ALLERGIES Unknown Allergies SOCIAL HISTORY No smoking Hx information available PLAN OF CARE VITAL SIGNS MEDICATIONS Unknown Medications RESULTS No Results PROCEDURES No Known procedures IMMUNIZATIONS No Known Immunizations
--- OUTSIDE RECORDS SUMMARY | 2017-10-19 14:50 | External Medical Summary ---
:1960 Author Name GENERATED, SYSTEM Care Team Providers Name Role Phone GRACIE SERRANO KIMBERLEY Primary Care Provider [phone] Reason For Visit Chief Complaint RIGHT FLANK PAIN Social History Functional Status Vital Signs Results Chemistry from 10/17/2014 12:15 [id number] MMOL/L (136-145 MMOL/L) POTASSIUM3.4 MMOL/L L (3.5-5.1 MMOL/L) YBTETRSZ908 MMOL/L H (98-107 MMOL/L) SDC577.0 MMOL/L (21.0-32.0 MMOL/L) ANION GAP8.0 MMOL/L (8.0-16.0 MMOL/L) BUN3 MG/DL L (7-18 MG/DL) CREATININE0.75 MG/DL (0.43-0.83 MG/DL) BUN/CREATININE RATIO4.0 L (9.1-17.0 ) JMEDWVD799 MG/DL H (65-99 MG/DL) GFR EST NON AFR NAURUAN>90 ML/MIN GFRA EST AFR AMER>90 ML/MIN CALCIUM8.8 MG/DL (8.5-10.1 MG/DL) BILIRUBIN TOTAL0.38 MG/DL (0.20-1.00 MG/DL) TOTAL PROTEIN7.8 GM/DL (6.4-8.2 GM/DL) ALBUMIN3.3 GM/DL L (3.4-5.0 GM/DL) GLOBULIN4.5 GM/DL H (2.3-3.5 GM/DL) A/G RATIO0.7 MG/DL L (1.5-2.2 MG/DL) ALK PHOS33 U/L L (46-116 U/L) ALT (SGPT)18 U/L (16-63 U/L) AST (SGOT)20 U/L (15-37 U/L) OPBLPM547 U/L (73-393 U/L)Hematology from 10/17/2014 12:15 PMWBC6.0 X10e3/UL (3.6 -11.2 X10e3/UL) RBC4.41 X10e6/UL (3.63-4.92 X10e6/UL) RWAFUFOCSI73.1 G/DL H (11.0-14.3 G/DL) IJPQKHMOUN88.2 % H (31.2-41.9 %) MCV98.1 FL H (79.0-98.0 FL) MCH34.4 PG H (27.0-33.0 PG) MCHC35.0 G/DL (32.0-36.0 G/DL) RDW13.6 % (12.3-17.0 %) RDWSD46.4 (37.1-47.8 ) HQYPPQKJ473 X10e3/UL (159-386 X10e3/UL) MPV7.9 FL (7.4-10.4 FL) AUTOMATED DIFFPERFORMED SEGS62.5 % JAZYYUPEWYT76.0 % MONOCYTES7.1 % EOSINOPHILS1.6 % BASOPHILS0.8 % ABSOLUTE NEUTROPHILS3.70 X10e3/UL (1.80-7.80 X10e3/UL) ABSOLUTE LYMPHOCYTES1.70 X10e3/UL (1.00-3.00 X10e3/UL) ABSOLUTE MONOCYTES0.40 X10e3/UL (0.30-1.00 X10e3/UL) ABSOLUTE EOSINOPHILS0.10 X10e3/UL (0.00-0.50 X10e3/UL) ABSOLUTE BASOPHILS0.00 X10e3/UL (0.00-0.20 X10e3/UL)Urinalysis from 10/17/2014 12 :50 PMURINE COLORYELLOW (STRAW/YELL/DK YELL ) URINE APPEARANCECLEAR (CLEAR ) URINE PH6.0 (5.0-8.0 ) URINE SPECIFIC GRAVITY1.020 (<=1.005->=1.030 ) URINE GLUCOSENEGATIVE MG/DL (NEGATIVE MG/DL) URINE BILIRUBINNEGATIVE (NEGATIVE ) URINE KETONESNEGATIVE MG/DL (NEGATIVE MG/DL) URINE BLOODNEGATIVE (NEGATIVE ) URINE PROTEINTRACE MG/DL A (NEGATIVE MG/DL) URINE UROBILINOGEN0.2 EU/DL (0.2-1.0 EU/DL) URINE NITRITESNEGATIVE (NEGATIVE ) *URINE LEUKOCYTESTRACE A (NEGATIVE ) MICROSCOPIC EXAM PERFORMEDPERFORMED JBE66-14 /HPF A (0-5 /HPF) RBC0-1 /HPF (0-1 /HPF) SQUAMOUS EP. CELLSFEW /LPF (NEG-FEW /LPF) MUCOUS THREADSFEW /LPF A (NEGATIVE /LPF) BACTERIAFEW /HPF A (NEGATIVE /HPF)Microbiology from 10/17/2014 12:50 PMCULTURE URINE (Preliminary Result) Specimen Number: [id number] Sample Collection Date/Time: 10/17/2014 12:50 PM Specimen Source: Urine Clean Catch CULTURE URINE: 5,000 cfu/ml gram negative colony types CT Scan from 10/17/2014 12:32 PMCT ABD/PELVIS W/O CONTRASTHISTORY: Flank pain . PRIORS: None. FINDINGS: ABDOMEN: Lung bases: clear Liver: Normal density. No measurable mass. Gallbladder and biliary tract: No radiodense calculus or dilation. Pancreas: Normal density, no abnormal calcifications or inflammatory process. Spleen: Normal. Kidneys: Normal size, contour and axis. No radiodense stones or obstructive uropathy. No masses seen. Adrenal glands: No masses seen. Aorta: Abdominal portion non-dilated. Bowel: There is mild circumferential wall thickening involving the transverse, descending, and sigmoid colon. At least a portion of this is related to the nondistended state, however, an inflammatory process is suspected. There are scattered diverticula in the colon without localized inflammation. Ascites: None. Retroperitoneal Lymphadenopathy: None. PELVIS: Bladder: Symmetric distention, no gross wall thickening. Peritoneal cavity: No ascites, collection or mesenteric inflammatory response. Appendix: Normal. Inflammatory process: None. Ascites: None. Lymphadenopathy: None. Osseous Structures: Umremarkable. There is a remote appearing deformity of the left pubic ramus. IMPRESSION: Findings suspicious for colitis involving the transverse, descending, and sigmoid colon. Problems Encounter Diagnosis No relevant problems exist. [...]
--- OUTSIDE RECORDS SUMMARY | 2017-10-19 14:51 | External Medical Summary ---
[...] Start Date End Date Status Dosage Percocet [facility] 47252-787 10-325 MG Orally Jan 05Jan 10, 1 tablet as 8-30 every 6 hrs 2014 2014 needed Results No Known Results Summary Purpose eClinicalWorks Submission
--- OUTSIDE RECORDS SUMMARY | 2017-10-19 14:51 | External Medical Summary | Summary of Care ---
:1960 Author Name Nishant Beebe Address [address] [place], [place] [id number] Care Team Providers Name Role Phone Sukhjinder [...] Refills: 0 Sukhjinder Figueroa M.D. Started 07-Mar-2013 [id number] GM Tube HydrOXYzine HCl - 10 MG [...] Allergies and Adverse Reactions Name Dates Details [facility] Status: Active Codeine Derivatives Status: Active [...] RNA, Quantitative, RT- PCR Ordered:09-Jan-2015 w/Reflex to [id number] Immunization Name Dates Details Fluzone Quadrivalent 0.5 ML Intramuscular Suspension Administered on:Feb-2014 Lot #: [id number] Family History Unknown Family Member Name Dates [...]
--- OUTSIDE RECORDS SUMMARY | 2017-10-19 14:51 | External Medical Summary ---
[...] Start Date End Date Status Dosage Percocet [facility] 38780-219 7.5-325 MG Orally October 18, October 25, 1 tablet as 2-72 every 6 hrs 2015 2015 needed Results No Known Results Summary Purpose eClinicalWorks Submission
--- OUTSIDE RECORDS SUMMARY | 2017-10-19 14:51 | External Medical Summary | Summary of Care ---
:1960 Author Name Freedom Douglass M.D. Address Unavailable Unavailable , Care Team Providers Name Role Phone Freedom Douglass M.D. Unavailable Unavailable Cris Mathew [...] 1 CAPSULE DAILY. Quantity: 30 Refills: 3 Rafat Abbasi, Freedom A Start 10-Dec-2015 Active RaNITidine HCl - 150 MG Oral Tablet TAKE 1 TABLET AT BEDTIME. Quantity: 30 Refills: 3 Rafat Abbasi, Freedom Smiley Start 10-Dec-2015 Active ZyrTEC Allergy 10 MG [...] ML Intramuscular Suspension on: Feb-2014 Lot #: [id number] Family History Unknown Family Member Name Dates [...] unknown Vital Signs Date Test Result Details 10-Dec-2015 10:46 Temperature 97.4 f Status: Comments: Method: Heart Rate 82 /min Status: Comments: Location: ; Weight 104 lb Status: Body Mass Index Calculated 18.42 kg/m2 Status: Body Surface Area Calculated 1.46 m2 Status: Results Date Description Value Details Results not documented Plan of Care Name Dates Details Planned Observations Planned Goals not documented Planned Encounters Appointment; Provider: Dominic Pierce M.D. On 21-Dec-2017 09:00 Interventions Provided Medication ChangesLevocetirizine Dihydrochloride 5 MG Oral Tablet - StopOmeprazole 20 MG Oral Capsule Delayed Release - StartRaNITidine HCl - 150 MG Oral Tablet - StartZyrTEC Allergy 10 MG Oral Tablet - Start Instructions Name Dates Details Instructions not documented Encounters Appointment; Dominic Pierce M.D. On Encounter Diagnosis: [...]
--- OUTSIDE RECORDS SUMMARY | 2017-10-19 14:51 | External Medical Summary ---
[...] Date End Date Status Dosage Percocet [facility] 41194-107 7.5-325 MG Orally November 20, November 27, 1 tablet as 2-72 every 6 hrs 2014 2014 needed Results No Known Results Summary Purpose eClinicalWorks Submission
--- OUTSIDE RECORDS SUMMARY | 2017-10-19 14:51 | External Medical Summary ---
:1960 Author Name GENERATED, SYSTEM Care Team Providers Name Role Phone GRACIE SERRANO KIMBERLEY Primary Care Provider [phone] Reason For Visit Chief Complaint STOMACH PAIN Social History Functional Status Vital Signs [...] Allergies, Adverse Reactions, Alerts This section is retail field representative of the current allergy information, at [...]
--- OUTSIDE RECORDS SUMMARY | 2017-10-19 14:51 | External Medical Summary ---
[...] Date Status Dosage System Date Zofran ODT [facility] 80217-86 8 MG Orally August 22, as directed 70-00 every 6 to 8 2015 hours Lamotrigine NDC 0 200 MG Orally 1 tablet [place] [address]-55 50 MG Orally not defined 62-01 three times daily Ibuprofen NDC 98565-58 600 MG Orally 1 tablet 58-00 [place] [address]-24 5-325 MG Orally October 21October 31, 1 tablet as 13-01 every 6 hrs 2014 2014 [place] [address]-36 10 MG Orally at 1 tablet 21-31 bedtime Metronidazole NDC 40792-73 500 MG Orally October 27November 10, 1 tablet 32-04 every 8 hrs 2014 2014 Cymbalta [facility] 48096-44 30 MG Orally 1 capsule 40-01 [place] [address]-87 4 MG Orally 1 tablet as 00-10 twice [place] [address]-44 500 MG Orally 1 capsule 47-01 Twice a day Lyrica NDC 74173-15 150 MG Orally August 22, 1 capsule 16-41 Twice a day 2014 Latuda [facility] 58336-12 60 MG Orally 1 tablet 06-01 Once a day with food Procedures Procedure Coding System Code Date OFFICE VISIT EST PATIENT LEVEL 3 CPT-4 98978 October 27, 2014 Vital Signs Date/Time: October 27, 2014 BMI 20.01 Index Weight 113.0 lbs Height 63 in Blood Pressure Diastolic 84 mm Hg Blood Pressure Systolic 132 mm Hg Cardiac Monitoring Heart Rate 78 /min Temperature 97.9 F Respiratory Rate 18 /min Results No Known Results Summary Purpose eClinicalWorks Submission
--- OUTSIDE RECORDS SUMMARY | 2017-10-19 14:51 | External Medical Summary ---
:1960 Author Organization eClinicalWorks Care Team Providers Name Role Phone rCis Mathew Provider Role Unavailable Allergies, Adverse Reactions, [...] Assessment Acute back pain 724.5 Active Medications Medication Code Code Instructions Start End Date Status Dosage System Date Lamotrigine NDC 0 200 MG Orally 1 [place] [address]-22 10 MG Orally at 1 tablet 21-[place] [address]-45 500 MG Orally 1 tablet 67-01 [place] [address]-24 5-325 MG Orally July 10July 20, 1 tablet as 19-30 every 6 hrs 2014 2014 [place] [address]-88 4 MG Orally 2 tablets 00-10 [place] [address]-02 60 MG Orally 1 tablet 06-01 Once a day with food Ibuprofen NDC 89109-58 600 MG Orally 1 tablet 58-00 Three times a day Albuterol NDC 0 [place] [address]-78 30 MG Orally 1 capsule 43-56 [place] [address]-64 300 MG Orally 2 tablets 39-19 [place] [address]-37 100-50 MCG/DOSE 1 puff 95-00 Inhalation Procedures Procedure Coding System Code Date OFFICE VISIT EST PATIENT LEVEL 3 CPT-4 61261 July 10, 2014 Vital Signs Date/Time: July 10, 2014 BMI 22.53 Index Weight 127.2 lbs Height 63 in Blood Pressure Diastolic 62 mm Hg Blood Pressure Systolic 108 mm Hg Cardiac Monitoring Heart Rate 78 /min Temperature 98.1 F Oximetry 96 % Respiratory Rate 18 /min Results No Known Results Summary Purpose eClinicalWorks Submission
--- OUTSIDE RECORDS SUMMARY | 2017-10-19 14:51 | External Medical Summary ---
:1960 Author Organization [facility] Address [address] [place], [place] [phone] Care Team Providers Name Role Phone Cris Mathew Unavailable Unavailable PROBLEMS Type Condition ICD9-CM Code SBG41-UR Code Onset Condition SNOMED Code Dates Status Problem Spinal stenosis M48.06 Active 20795886 of lumbar region Problem COPD (chronic J44.9 Active 80137782 obstructive pulmonary disease) Problem DDD (degenerative M51.36 Active 82617331 disc disease), lumbar Problem Fibromyalgia M79.7 Active 870625127 Problem GERD K21.9 Active 721868872 (gastroesophageal reflux disease) Problem Iron deficiency D50.9 Active 27121047 anemia Problem Hepatitis C B19.20 Active 95535650 Problem Cigarette F17.210 Active 495879483 nicotine dependence Problem Depression F32.9 Active 313418304 ALLERGIES Unknown Allergies SOCIAL HISTORY No smoking Hx information available PLAN OF CARE VITAL SIGNS MEDICATIONS Medication Instructions Dosage Frequency Start End Date Duration Status Date Fluconazole 100 Orally once a 1 tablet 24h Aug, Aug, 10 day(s) Active MG day 2016 2016 RESULTS No Results PROCEDURES No Known procedures IMMUNIZATIONS No Known Immunizations
--- OUTSIDE RECORDS SUMMARY | 2017-10-19 14:51 | External Medical Summary ---
:1960 Author Name GENERATED, SYSTEM Care Team Providers Name Role Phone GRACIE SERRANO KIMBERLEY Primary Care Provider [phone] Reason For Visit Chief Complaint BACK PAIN Social History Functional Status Vital Signs Results DX Radiology from 02/29/2016 8:14 AMCHEST 2 VIEWSHistory: cough. Technique: 2 VIEW CHEST Priors: 06/30/2014 Findings: Heart size within normal limits. There is evidence acute infiltrate, pneumothorax or pleural effusion. There is moderate to severe COPD. Impression: COPD without acute cardiopulmonary process. Electronically signed by: Josemanuel Flor MD Dictated: 02/29/2016 09:15 HIP LEFT 2 VIEWS WITH PELVISHistory: left hip pain . Technique: Single-view pelvis with two-view left hip Priors: 06/21/2013 Findings: There is a chronic healed fracture left superior pubic ramus and left pubic body. No acute fractures identified. The left proximal femur and appears intact there is mild osteoarthritis of the left hip with superior hip joint space narrowing and osteophytosis. . Impression: Chronic healed left pubic symphysis fracture and pubic body fracture without acute fracture of the pelvis or left proximal femur Electronically signed by: Josemanuel Flor MD Dictated: 02/29/2016 09:14 SHOULDER LEFT 2 VIEWS MINHistory: l shoulder pain . Technique: 3 view shoulder Priors: None. Findings: There is no fracture. The acromiocavicular joint is within normal limits. The glenohumeral joint is well maintained. Impression: Unremarkable radiographs of the left shoulder. Electronically signed by: Josemanuel Flor MD Dictated: 02/29/2016 09:15 Problems Encounter Diagnosis No relevant problems exist. [...]
--- OUTSIDE RECORDS SUMMARY | 2017-10-19 14:51 | External Medical Summary ---
:1960 Author Organization eClinicalWorks Care Team Providers Name Role Phone Cris Mathew Provider Role Unavailable Allergies No Known Allergies Problems Problem Type Condition Code Onset Dates Condition Status Problem Tobacco use 305.1 Active Problem COPD (chronic obstructive pulmonary 496 Active disease) Problem Pneumonia 486 Active Problem Depression 311 Active Medications No Known Medications Results No Known Results Summary Purpose eClinicalWorks Submission
--- OUTSIDE RECORDS SUMMARY | 2017-10-19 14:51 | External Medical Summary | Summary of Care ---
:1960 Author Name Dominic Pierce M.D. Address Unavailable Unavailable , Care Team Providers Name Role Phone Dominic Pierce M.D. Unavailable Unavailable Sukhjinder Figueroa M.D. Unavailable Unavailable Cris Mathew Unavailable Unavailable [...] right lower extremity (726.61, M76.891) Status: Active Medications Name Dates Details Abilify 15 MG Oral Tablet Refills: 0 Henry M.Linwood., Sukhjinder Start 01-Jul-2008 Active Zolpidem Tartrate 10 MG Oral Tablet TAKE 1 TABLET AT BEDTIME NEEDED FOR SLEEP. Quantity: 30 Refills: 1 Start 28-Apr-2011 Active Ibuprofen 600 MG Oral Tablet TAKE 1 TABLET TWICE A DAY WITH MEALS Quantity: 60 Refills: 0 Henry M.D., Sukhjinder Start 30-May-2011 Active Voltaren 1 % Transdermal Gel Apply 4 grams to affected area QID Quantity: 5 Refills: 0 Henry M.D., Sukhjinder Start 07-Mar-2013 Active 100 GM Tube HydrOXYzine HCl - 10 MG Oral Tablet Take 1 tablet daily Refills: 0 Henry M.D., Sukhjinder Start 07-Mar-2013 Active TiZANidine HCl - 4 MG Oral Tablet TAKE 1 TABLET 3 TIMES DAILY NEEDED. Refills: 0 Start 13-May-2014 Active Cymbalta 30 MG Oral Capsule Delayed Release Particles TAKE 1 CAPSULE TWICE DAILY. Refills: 0 Start 19-Dec-2014 Active Lyrica 150 MG Oral Capsule TAKE 1 CAPSULE TWICE DAILY. Refills: 0 Start 19-Dec-2014 Active Zofran 8 MG Oral Tablet Refills: 0 Start 19-Dec-2014 Active LamoTRIgine 200 MG Oral Tablet TAKE 1 TABLET DAILY. Refills: 0 Start 19-Dec-2014 Active Latuda 60 MG Oral Tablet Refills: 0 Start 19-Dec-2014 Active Advair Diskus 100-50 MCG/DOSE Inhalation Aerosol Powder Breath Activated INHALE 1 PUFF EVERY 12 HOURS. Refills: 0 Start 19-Dec-2014 Active Percocet 10-325 MG Oral Tablet Refills: 0 Start 09-Jan-2015 Active Allergies and Adverse Reactions Name [...] ML Intramuscular Suspension on: Feb-2014 Lot #: [id number] Family History Unknown Family Member Name Dates [...]
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
--- OUTSIDE RECORDS SUMMARY | 2017-10-19 14:52 | External Medical Summary ---
[...] Instructions Start Date End Date Status Dosage Ambien [facility] [address] 10 MG Orally at 1 tablet -31 bedtime Results No Known Results Summary Purpose eClinicalWorks Submission
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
--- NOTE | 2017-10-19 15:48 | XRay Report ---
Indication: wheezing PROCEDURE: XR chest 1V: Encounter: Initial Comparison: None Findings: Airspace opacity in the peripheral right upper lobe along the minor fissure seen overlying the right seventh posterior rib. Bilateral the placenta is noted. Additional small areas of somewhat nodular airspace opacity in the lower lobes. No pleural effusion or pneumothorax. Heart size and mediastinal contours are within normal limits. Pulmonary vascularity is normal. Impression: Right upper lobe airspace disease could represent pneumonia. However given this opacity and the somewhat nodular areas of opacity in both lower lobes a neoplastic/metastatic etiology cannot be excluded particularly without available comparison. Recommend a chest CT for further evaluation. .
[2017-10-19] MEDS ORDERED: ALBUTEROL/IPRATROPIUM 2.5mg-0.5mg/3ml NEB AEROSOL ONE (16:03)
[2017-10-19] MEDS: LEVOFLOXACIN PB 750 MG/150 ML BAG IV SCH (16:11)
[2017-10-19] MEDS ORDERED: MECLIZINE 25 MG TABLET PO PRN (16:48)
[2017-10-19] MEDS ORDERED: ONDANSETRON ODT 4 MG TABLET PO PRN (16:48)
[2017-10-19] MEDS ORDERED: SCOPOLAMINE 1mg/3 days PATCH (Eq. 1.5 Patch) TD SCH (16:48)
[2017-10-19] MEDS ORDERED: ALBUTEROL/IPRATROPIUM 2.5mg-0.5mg/3ml NEB AEROSOL PRN (16:48)
[2017-10-19] MEDS ORDERED: BACLOFEN 10 MG TABLET PO PRN (16:48)
[2017-10-19] MEDS ORDERED: PROCHLORPERAZINE 10 MG/2 ML INJECTION IVP PRN (16:48)
[2017-10-19] MEDS: Oxycodone/Apap 10/325 1 TAB PO PRN (17:11)
[2017-10-19] MEDS: PANTOPRAZOLE 40 MG INJECTION IVP SCH (17:12)
[2017-10-19] MEDS: NS 1,000 ML IV SCH (17:13)
[2017-10-19] MEDS: NICOTINE 14 MG PATCH TD SCH (17:38)
[2017-10-19] MEDS ORDERED: FALL RISK - PHARMACY CONSULT MC ONE (17:41)
[2017-10-19] MEDS ORDERED: CEFTRIAXONE 1 G in NS 100 ML IV SCH (18:00)
--- NOTE | 2017-10-19 18:02 | History & Physical Report ---
History of Present Illness Date: 10/19/17 (PCP: Gatito Deshpande) Chief complaint: Fever, cough, dizziness HPI: Cloleen is a very pleasant 56-year-old female who presented to the ER today due to not feeling well. She reports that [place] , and has not been feeling well for at least the last week. She endorses generalized aches and pains, and has been having fever and chills. She reports generalized wheezing and nonproductive cough. She also reports persistent vertigo, nausea and vomiting and inability to tolerate by mouth very well. She does have chronic constipation, and has been several days since she's had a bowel movement. The emergency room, a chest x-ray was done, which is concerning for pneumonia versus atypical mass. She is being admitted for further evaluation and treatment. She does report, again, that she has not been feeling well for several days. Increasing shortness of air and cough. She does have a history of COPD, but does not use maintenance meds at home, and she does not routinely feel short of breath. She is not oxygen dependent. She continues to smoke half a pack per day. She does have chronic pain, and is seeing Dr. Slaughter in [place] in the past for rheumatology. She believes that she has been on immunosuppressive agents, but it has been greater than 2 years. She prefers to see an alternate rn licensed practical in the future if needed. She does feel that her pain and dysfunction from RA have worsened over the last several months. She does deal with chronic pain, and sees Dr. Kae Barr in [place]. She reports some fairly new and significant pain in her right shoulder. She reports that this started when she has been caring for her 2-year-old grandson, who is quite active. She reports that in attempting to carry him, she did fall against the wall and hurt her right shoulder. She does state the pain is worse at night, radiates down into her right arm and into her hand. Some occasional numbness in the hand, worse in the mornings upon awakening. No change to temperature or color. She does have difficulty rotating her arm past about 90. She has tried ice, which has given her some relief in pain. She also has a topical that she applies that has been prescribed by her pain management doctor. She denies any new neck pain or stiffness. No severe headache or sensitivity to light or sound. She does endorse fever of around 100. Again, she does feel short of air at times. She has some vague left sided chest wall discomfort. She endorses a headache. She has had "rushing in her ears". Again, she endorses nausea with vomiting, decreased appetite, and constipation, which is chronic for her she states no bowel movement for 4-5 days recently. She denies any lower extremity edema. She did have a tick bite earlier in the week. She had a small area of redness at the bite, but no systemic rash. She did not feel that the tick was on her for very long. She does have some visible mosquito bites present on her skin. Review of Systems All systems PM: 10-point ROS was reviewed, no additional remarkable complaints except Review of systems: See history of present illness for complete ROS. Past Medical History Medical History Updates: COPD, RA/OA, GERD, osteoporosis Surgical History: hyst with BSO, JOSE JUAN, nicole. Laparoscopic surgery Family History: F - - heart probs M - - heart probs brother - heart probs, DM on insulin sister - Type 2 DM brother - from heart probs. Had pacer. Family History: As Above - Social History Smoking status: Current every day smoker Packs per day: 0.5 Substance use type: marijuana (CBD oil) Alcohol intake frequency: does not drink Housing: house Household members: family Current occupational status: disabled Current residence: Apartment/Private Home Medications Home Medications Medication Instructions Recorded Confirmed Type Baclofen [Lioresal] 10 mg PO TID PRN 10/19/17 10/19/17 History Dexlansoprazole [Dexilant] 60 mg PO DAILY 10/19/17 10/19/17 History Gabapentin [Neurontin] 800 mg PO TID 10/19/17 10/19/17 History Ondansetron [Ondansetron Odt] 8 mg PO TID PRN 10/19/17 10/19/17 History Oxycodone/Apap 10/325 [Percocet 1 tab PO Q6H PRN 10/19/17 10/19/17 History 10/325] Zolpidem [Ambien] 10 mg PO HS 10/19/17 10/19/17 History Allergies Allergy/AdvReac Type Severity Reaction Status Date / Time Penicillins Allergy Unknown HIVES Verified 10/19/17 14:59 prednisone Allergy Unknown UPSET Verified 10/19/17 14:59 STOMACH Sulfa (Sulfonamide Allergy Unknown HIVES Verified 10/19/17 14:59 Antibiotics) Exam Vital Signs: Temperature 98.1 F 10/19/17 16:50 Pulse Rate 100 10/19/17 16:46 Respiratory Rate 18 10/19/17 17:11 Blood Pressure 120/74 10/19/17 16:46 Pulse Oximetry 92 10/19/17 16:46 Height/Weight/BMI: Height 1.6 m Weight 53 kg Body Mass Index 20.7 Comments: Gen.: Patient is awake and alert. She is in no acute distress. She appears chronically thin. She is pleasant and cooperative. Head: Atraumatic, normocephalic. Eyes: Pupils are reactive. Extraocular movements are intact. ENT: No external abnormalities. Neck: Supple. Full range of motion. Posterior C-spine is not tender to palpation. There is no palpable lymphadenopathy that I can appreciate. Cardiovascular: S1, S2. Regular rate and rhythm. Mildly tachycardic at rest. No murmurs. No edema. Pulmonary: Expiratory crackles in bilateral lung harris in bases. She really has fairly good airflow considering COPD. Mildly diminished in right apex. She is not dyspneic at rest. No wheezes appreciated. Abdomen: Soft, nontender, nondistended. Active 4 quadrants. Bowel sounds quiet. Extremities: No edema, no cyanosis or clubbing. Warm and pink. Right shoulder. Some tenderness to palpation. There is no edema, warmth, or redness. She does have some tenderness to palpation in tendon tightness in the 3 :00 position anteriorly. She does have limitation to range of motion and can only lift her arm to about 90 angle in rotation. Neuro: Grossly intact as tested. Psychiatric: Patient is calm, pleasant, appropriate. Results - Labs CBC & Chem 7: 10/19/17 14:55 10/19/17 14:56 - Imaging and Cardiology Chest x-ray Status: image reviewed by me Additional comments: Impression: Right upper lobe airspace disease could represent pneumonia. However given this opacity and the somewhat nodular areas of opacity in both lower lobes a neoplastic/metastatic etiology cannot be excluded particularly without available comparison. Recommend a chest CT for further evaluation. . Assessment and Plan (1) Pneumonia Current visit: Yes Status: Acute Assessment and Plan: Impression Acute febrile illness Right upper lung mass versus pneumonia COPD Right shoulder pain GERD Chronic pain Chronic constipation, narcotic related Rheumatoid arthritis Osteoporosis Tachycardia Dehydration At risk for tick or mosquito borne illness Tobacco dependency Plan Observation status. Discussed with Dr. Masters. Patient does have an elevated risk of tickborne illness given recent tick bite. Will change antibiotic therapy to ceftriaxone and doxycycline to cover both community-acquired pneumonia as well as possible tickborne illness. She does not have encephalopathic symptoms per se, so we'll hold off on West Nile viral testing. If she does not improve on current therapy, could consider a tickborne illness panel and West Nile virus testing. We will obtain CT of the chest in the morning so that we can hydrate her overnight. Provide inhaled treatments, DuoNeb and budesonide. I discussed with her the importance of using her home Advair to help maintain lung function. She understands and expresses agreement. We'll provide NicoDerm patch at her request due to tobacco abuse. Continue supportive medications for her pain, GERD. Assess right shoulder x- rays in a.m., ice pack when necessary. Will add Movantik to help with her chronic constipation. This may be contributing to her abdominal symptoms. Hydration should help as well. Monitor telemetry with tachycardia. I expect this will improve with IV fluids. Monitor labs in the morning. DVT prophylaxis: Lovenox. DVT Prophylaxis: SCD's GI Prophylaxis: Protonix - Physician Narrative Physician: Sixto Masters MD Narrative: Date: 10/19/17 Time: 1940 Have independently interviewed and examined pt. Chart reviewed. Case discussed with ED provider and my CNC MECHANIC. Care plan developed with my supervision; agree with above. Present to ED secondary to increasing dizziness, n/v, cough and temp elevation. Has progressively been feeling miserable for the past several day. Nausea and vomiting keeping her from keeping meds down-notes increase of her chronic pain. No diarrhea. Lungs: decreased, diffuse faint wheezes CV: tachy, regular AB: soft thin nt MSE: awake alert appropriate Gen: looks weak and tired Plan: OBS. Will initiate Rocephin and doxycycline for coverage due to tick exposure. Check CT chest to exclude occult mass. Neb treatments. Acapella and Mucinex DM to help cough/congestion. IVF for hydration. Tobacco cessation. Recheck lab in am. Hospital Course Summary Disclaimer: The visit summary below is not to be considered part of the above Progress Note. Hospital Course: 10/19/17 Admit to observation status. Will change antibiotic therapy to ceftriaxone and doxycycline to cover both community-acquired pneumonia as well as possible tickborne illness. She does not have encephalopathic symptoms per se, so we'll hold off on West Nile viral testing. If she does not improve on current therapy, could consider a tickborne illness panel and West Nile virus testing. We will obtain CT of the chest in the morning so that we can hydrate her overnight. Provide inhaled treatments, DuoNeb and budesonide. Mucinex DM BID to decrease cough/congestion. Acapella to help loosen secretions. I discussed with her the importance of using her home Advair to help maintain lung function. She understands and expresses agreement. We'll provide NicoDerm patch at her request due to tobacco abuse. RT for tobacco cessation. Continue supportive medications for her pain, GERD. Assess right shoulder x- rays in a.m., ice pack when necessary. Will add Movantik to help with her chronic constipation. This may be contributing to her abdominal symptoms. Hydration should help as well. Monitor telemetry with tachycardia. I expect this will improve with IV fluids. Monitor labs in the morning. DVT prophylaxis: Lovenox. Patient would like to establish with an alternate rn licensed practical. I have recommended that she discuss with her primary care provider, there are rn licensed practical at both [facility] and with the [facility] in [place] that could potentially assist her.
[2017-10-19] MEDS: BUDESONIDE INH.SOLN 0.5mg/2ml NEB AEROSOL SCH (20:20)
[2017-10-19] MEDS: ALBUTEROL/IPRATROPIUM 2.5mg-0.5mg/3ml NEB AEROSOL SCH (20:20)
[2017-10-19] MEDS: DOXYCYCLINE 100 MG in NS 250ml 250 ML IV SCH (20:24)
[2017-10-19] MEDS: GUAIFENESIN/D-METHORPHAN 600mg/30mg TABLET PO SCH (20:49)
[2017-10-19] MEDS: ZOLPIDEM 10 MG TABLET PO SCH (20:49)
[2017-10-19] MEDS: GABAPENTIN 800 MG TABLET PO SCH (20:49)
[2017-10-19] MEDS: ACETAMINOPHEN 500 MG TABLET PO PRN (22:07)
[2017-10-20] MEDS: Oxycodone/Apap 10/325 1 TAB PO PRN ×5 (00:23→23:26)
[2017-10-20] MEDS: ACETAMINOPHEN 500 MG TABLET PO PRN (02:30)
[2017-10-20] MEDS: NS 1,000 ML IV SCH ×4 (03:25→12:51)
[2017-10-20] MEDS: BUDESONIDE INH.SOLN 0.5mg/2ml NEB AEROSOL SCH ×2 (07:16→20:07)
[2017-10-20] MEDS: ALBUTEROL/IPRATROPIUM 2.5mg-0.5mg/3ml NEB AEROSOL SCH ×5 (07:17→23:30)
[2017-10-20] MEDS ORDERED: IOHEXOL 300mg/ml 75ml INJECTION ONE (07:26)
[2017-10-20] MEDS ORDERED: SALINE FLUSH 10ml SYRINGE ONE (07:26)
--- NOTE | 2017-10-20 08:18 | XRay Report ---
Indication: Right shoulder pain PROCEDURE: XR shoulder RT 2-3 views: Encounter: Initial Comparison: None Findings: There is no acute fracture, dislocation or malalignment identified. Impression: No acute osseous abnormality. .
[2017-10-20] MEDS: GABAPENTIN 800 MG TABLET PO SCH ×3 (09:52→21:11)
[2017-10-20] MEDS: GUAIFENESIN/D-METHORPHAN 600mg/30mg TABLET PO SCH ×2 (09:52→21:11)
[2017-10-20] MEDS: NICOTINE 14 MG PATCH TD SCH (09:52)
[2017-10-20] MEDS: PANTOPRAZOLE 40 MG INJECTION IVP SCH (09:52)
[2017-10-20] MEDS: DOXYCYCLINE 100 MG in NS 250ml 250 ML IV SCH ×2 (09:57→21:10)
[2017-10-20] MEDS: NICOTINE PATCH REMOVAL TD SCH (09:58)
--- NOTE | 2017-10-20 10:00 | CT Scan Report ---
Indication: Possible lung mass PROCEDURE: CT chest w con: Encounter: Initial Comparison: Chest radiograph dated October 19, 2017 Technique: Axial CT images were performed through the chest after the administration of intravenous contrast. Coronal and sagittal two-dimensional reformats. Automated Exposure Control and Iterative Reconstruction dose reducing techniques were utilized. Contrast: Omnipaque 300 74 mL Findings: There is diffuse groundglass opacity with interlobular septal thickening seen throughout both lungs with a "mosaic" appearance to the lungs. There is no true pulmonary nodule or mass no pleural effusion or pneumothorax. The central airways are patent. No axillary or mediastinal lymphadenopathy. Heart size is normal. No pericardial effusion. The upper abdomen shows no acute findings. Impression: Diffuse groundglass opacity throughout both lung harris with a symmetric distribution. Differential considerations include pulmonary edema, atypical pneumonia, pulmonary hemorrhage, drug reaction, hypersensitivity pneumonitis and pulmonary alveolar proteinosis among others. .
[2017-10-20] MEDS ORDERED: METHYLPREDNISOLONE SOD SUCC 125mg/2ml INJECTION IVP ONE (12:21)
--- NOTE | 2017-10-20 12:23 | Progress Note ---
- Date 10/20/17 Subjective: Patients seen after noon for f-u on pneumonia. She reports she is very tired. She c/o her chest hurting. Has not been able to cough anything up. Still c/o R shoulder pain. She trails off on random subjects and dozes off when answering questions. Is now requiring O2. No n/v. Objective Vital signs: Temperature 98.6 F 10/20/17 08:00 Pulse Rate 124 H 10/20/17 08:00 Respiratory Rate 24 10/20/17 10:41 Blood Pressure 104/64 10/20/17 08:00 Pulse Oximetry 90 10/20/17 10:41 Height/Weight/BMI: Height 1.6 m Weight 54.5 kg Body Mass Index 20.7 - Constitutional Present: no acute distress, well nourished, well developed - Routine HEENT Exam Head: Present: normocephalic, atraumatic - Routine Respiratory Exam Present: CTA bilaterally (just finished breathing tx). Absent: wheezes - Routine Cardiovascular Exam Present: no murmur, tachycardia - Routine Abdominal Exam Present: soft, non distended, non tender - Routine Extremities Exam Present: no edema, normal capillary refill Comments: R shoulder tender to palpation and decreased ROM d/t pain - Routine Skin Exam Present: dry, warm - Routine Neurological Exam Present: moving all extremities. Absent: alert - Routine Lymphatic Exam Lymphatic: Absent: adenopathy - Routine Psychiatric Exam Present: cooperative Results - Labs CBC & Chem 7: 10/20/17 04:32 10/20/17 04:32 - ABG Interpretation ABG results: 10/20/17 11:24 ABG pH 7.366 ABG pCO2 32 L ABG pO2 58.0 L ABG HCO3 18.6 L ABG Total CO2 19.6 L ABG O2 Saturation 89.2 L ABG Base Excess -6.0 L - Imaging and Cardiology CT scan - chest Additional comments: Date of Exam: 10/20/17 Indication: Possible lung mass PROCEDURE: CT chest w con: Findings: There is diffuse groundglass opacity with interlobular septal thickening seen throughout both lungs with a "mosaic" appearance to the lungs. There is no true pulmonary nodule or mass no pleural effusion or pneumothorax. The central airways are patent. No axillary or mediastinal lymphadenopathy. Heart size is normal. No pericardial effusion. The upper abdomen shows no acute findings. Impression: Diffuse groundglass opacity throughout both lung harris with a symmetric distribution. Differential considerations include pulmonary edema, atypical pneumonia, pulmonary hemorrhage, drug reaction, hypersensitivity pneumonitis and pulmonary alveolar proteinosis among others. shoulder xray Additional comments: Date of Exam: 10/20/17 Indication: Right shoulder pain PROCEDURE: XR shoulder RT 2-3 views: Findings: There is no acute fracture, dislocation or malalignment identified. Impression: No acute osseous abnormality. Assessment and Plan (1) Pneumonia Current visit: Yes Status: Acute Assessment and Plan: Impression Acute febrile illness CAP vs atypical pneumonia vs pulmonary hemorrhage vs other... Acute hypoxic respiratory failure COPD Right shoulder pain GERD Chronic pain Chronic constipation, narcotic related Rheumatoid arthritis Osteoporosis Tachycardia-POA Dehydration At risk for tick or mosquito borne illness Tobacco dependency Plan CT chest reviewed - neoplasm is not mentioned in wide differential given by radiologist. Consult Dr. Rosen for his expert opinion. Reports h/o exposure to mold prior to illness. Solumedrol 125mg IV now then 62.5mg q 8hr. O2 sats dropped to 87-88% on RA - currently on 2L. Day 2 ceftriaxone and doxy. Discussed with Dr. Rosen. Will broaden coverage to include cefipime and vanc and continue doxy. DC Rocephin. Continue Duoneb, budesonide, acapella Shoulder xray neg for acute injury. Solumedrol may help with her shoulder pain - suspect arthritic etiology. DVT Prophylaxis: SCD's GI Prophylaxis: Protonix Resuscitation Status: Full Code - Time spent with patient Time with patient PN: 25 minutes - Physician Narrative Physician: Sixto Masters MD Narrative: Date: 10/20/17 Time: 1217 Have independently interviewed & examined pt. Chart reviewed. Case discussed with CM & my PA. Care plan developed with my supervision; agree with above. Rough day. Breathing more labored. Hypoxic on room air, O2 needs increased. Notes cough, but not moving secretions. Chest feels sore and raw. Nausea decreased and feeling less dizzy, but appetite very diminished. Increase shoulder and diffuse pain. More anxious. Very weak. Lungs: decreased, coarse/congested. Shallow/labored breathing. CV: tachy, regular AB: soft nt/nd BS decreased MSE: awake alert, anxious. Plan: Will change to inpatient admission status due to worsening respiratory status and hypoxia requiring O2 for support. Initiate Solu-Medrol. Continue Neb treatments. Consult with Pulm - recommend continue Doxycycline, but change Rocephin to cefepime and adding vancomycin. Lorazepam to help anxiety due to air hunger. Decrease IVF. Will increase Percocet frequency due to pain. Monitor lab. Recheck CXR in am. Hospital Course Summary Disclaimer: The visit summary below is not to be considered part of the above Progress Note. Hospital Course: 10/19/17 Admit to observation status. Will change antibiotic therapy to ceftriaxone and doxycycline to cover both community-acquired pneumonia as well as possible tickborne illness. She does not have encephalopathic symptoms per se, so we'll hold off on West Nile viral testing. If she does not improve on current therapy, could consider a tickborne illness panel and West Nile virus testing. We will obtain CT of the chest in the morning so that we can hydrate her overnight. Provide inhaled treatments, DuoNeb and budesonide. Mucinex DM BID to decrease cough/congestion. Acapella to help loosen secretions. I discussed with her the importance of using her home Advair to help maintain lung function. She understands and expresses agreement. We'll provide NicoDerm patch at her request due to tobacco abuse. RT for tobacco cessation. Continue supportive medications for her pain, GERD. Assess right shoulder x- rays in a.m., ice pack when necessary. Will add Movantik to help with her chronic constipation. This may be contributing to her abdominal symptoms. Hydration should help as well. Monitor telemetry with tachycardia. I expect this will improve with IV fluids. Monitor labs in the morning. DVT prophylaxis: Lovenox. Patient would like to establish with an alternate tobacco shaker. I have recommended that she discuss with her primary care provider, there are tobacco shaker at both via [facility] and with the [facility] group in [place] that could potentially assist her. 10/20/17 Respiratory decreasing - increased labor breathing and hypoxic, requiring oxygen. Will change admission status to inpatient due to continue care needs. CT chest reviewed - neoplasm is not mentioned in wide differential given by radiologist. Reports h/o exposure to mold prior to illness. Solu-Medrol 125mg IV now then 62.5mg q 8hr. O2 sats dropped to 87-88% on RA. Supplemental O2 initiated. Did need to start Vapotherm for respiratory support. Day 2 ceftriaxone and doxy. Discussed with Dr. Rosen. Will broaden coverage to include cefepime and vancomycin and continue doxy. D/C Rocephin. Continue DuoNeb, budesonide, acapella. Shoulder X-ray neg for acute injury. Solu-Medrol may help with her shoulder pain - suspect arthritic etiology.
[2017-10-20] MEDS ORDERED: VANCOMYCIN - PHARMACY CONSULT MC ONE (14:05)
--- NOTE | 2017-10-20 14:50 | Pharmacy Consult-Antibiotics ---
Pharmacy Consult-Vancomycin - Laboratory Information WBC 10.8 T/MM3 (4.5-11.0) 10/20/17 04:32 BUN 10.0 MG/DL (7-17) 10/20/17 04:32 Creatinine 0.8 mg/dL (0.7-1.2) D 10/20/17 04:32 Procalcitonin 3.04 NG/ML H* 10/20/17 04:32 - Consult Information VANCOMYCIN CONSULT: Dx: Pneumonia Current Renal Fx: SCr = 0.8mg/dl. Will give Vancomycin 1,500mg loading dose then 1,250mg IV q12hrs. Will continue to monitor and adjust regimen to maintain therapeutic levels. Thank you.
--- NOTE | 2017-10-20 15:12 | Pulmonology Consult Note ---
<Hillary Hua Linwood - Last Filed: 10/20/17 23:49> History of Present Illness Consult date: 10/20/17 Requesting physician: Sixto Masters Reason for consult: dyspnea, cough, COPD, abnormal CXR/CT Chief complaint: SOB History of present illness: This is a 56 yo female with a Hx of COPD, OA, RA and tobaccoism. Currently smoking 1/2 ppd with a 40pyh, no oxygen or inhaled regimen at home. She states [place] since , and has not been feeling well for at least the last week. She complains of generalized aches, pains, and has been having fever and chills. She also complains of generalized wheezing and nonproductive cough along with reports of persistent vertigo, nausea and vomiting and inability to tolerate PO very well. WBC was normal in the ER, CXR showed bilateral interstitial infiltrates with a RUL consolidation. She was admitted for further evaluation and treatments. She also admits to helping her friend clean out a house with black mold but states she was not directly touching the mold or disturbing the mold to make the spores airborne. CT chest does show diffuse groundglass infiltrates, lactic acid normal, procal elevated at 3. Was initially started on Doxy and ceftriaxone for a tick bite along with solumedrol. She unfortunately has had increased oxygen need since she was admitted. We have been consulted for her respiratory issues and appreciate the consult. Review of Systems - Constitutional Constitutional: Present: chills, fever(s), headache(s) - EENT Eyes: Absent: blurry vision, change in vision Nose: Absent: change in smell - Cardiovascular Cardiovascular: Present: dyspnea on exertion. Absent: chest pain, edema - Respiratory Respiratory: Present: cough, dyspnea, dyspnea on exertion, wheezing. Absent: hemoptysis - Gastrointestinal Gastrointestinal: Present: nausea, vomiting - Musculoskeletal Musculoskeletal: Absent: abnormal gait, atrophy - Neurological Neurological: Absent: abnormal gait, abnormal movements - Psychiatric Psychiatric: Absent: abnormal sleep pattern, behavioral changes - Hematologic/Lymphatic Hematologic/Lymphatic: Absent: easy bleeding, easy bruising - Allergic/Immunologic Allergic/Immunologic: Absent: tongue swelling, throat swelling PFSH Patient Stated Medical History Migraine Yes Other HEENT Yes: problems with vocal cords due to severe reflux Asthma Yes Bronchitis Yes Chronic Obstructive Pulmonary Yes Disease (COPD) Pneumonia Yes Cirrhosis Yes Gastroesophageal Reflux Yes Disease Anemia Yes Osteoarthritis Yes Shingles Yes Medical History Updates: COPD, RA/OA, GERD, osteoporosis Surgical History: hyst with BSO, TRKA, appy. Laparoscopic surgery - Social History Smoking status: Current every day smoker Packs per day: 0.5 Substance use type: marijuana (CBD oil) Alcohol intake frequency: does not drink Housing: house Household members: family Current occupational status: disabled Current residence: Apartment/Private Home Medications Home Medications Medication Instructions Recorded Confirmed Type Baclofen [Lioresal] 10 mg PO TID PRN 10/19/17 10/19/17 History Dexlansoprazole [Dexilant] 60 mg PO DAILY 10/19/17 10/19/17 History Gabapentin [Neurontin] 800 mg PO TID 10/19/17 10/19/17 History Ondansetron [Ondansetron Odt] 8 mg PO TID PRN 10/19/17 10/19/17 History Oxycodone/Apap 10/325 [Percocet 1 tab PO Q6H PRN 10/19/17 10/19/17 History 10/325] Zolpidem [Ambien] 10 mg PO HS 10/19/17 10/19/17 History Allergies Allergy/AdvReac Type Severity Reaction Status Date / Time Penicillins Allergy Unknown HIVES Verified 10/19/17 14:59 prednisone Allergy Unknown UPSET Verified 10/19/17 14:59 STOMACH Sulfa (Sulfonamide Allergy Unknown HIVES Verified 10/19/17 14:59 Antibiotics) Exam Vital signs: Temperature 98.6 F 10/20/17 08:00 Pulse Rate 124 H 10/20/17 08:00 Respiratory Rate 30 H 10/20/17 14:48 Blood Pressure 104/64 10/20/17 08:00 Pulse Oximetry 91 10/20/17 14:48 - Constitutional no acute distress, thin, cooperative - Routine HEENT Exam Head: Present: normocephalic, atraumatic Eye: Present: PERRL - Routine Neck Exam Present: supple, full ROM, trachea midline - Routine Respiratory Exam Present: decreased breath sounds, wheezes, crackles Comments: faint exp wheezes, crackles bases - Routine Cardiovascular Exam Present: RRR, S1, S2, no murmur, tachycardia - Routine Abdominal Exam Present: soft, normoactive bowel sounds - Routine Extremities Exam Present: no edema, non tender, full ROM - Routine Back/Spine/Pelvis Exam Back/Spine: Present: full ROM - Routine Skin Exam Present: intact, dry - Routine Neurological Exam Present: alert, oriented X3, CN II-XII intact - Routine Psychiatric Exam Present: normal affect, normal thought process Results - Laboratory Findings CBC and BMP: 10/20/17 04:32 10/20/17 04:32 ABG ABG pH 7.366 (7.350-7.450) 10/20/17 11:24 ABG pCO2 32 MMHG (34.0-45.0) L 10/20/17 11:24 ABG pO2 58.0 MMHG (80.0-100.0) L 10/20/17 11:24 ABG O2 Saturation 89.2 % (95.0-98.0) L 10/20/17 11:24 Abnormal lab findings: Abnormal Labs 10/20/17 10/20/17 10/20/17 04:32 04:32 04:32 RBC 3.33 L Hgb 11.1 L Hct 32.9 L D Neut % (Auto) 79.1 H Lymph % (Auto) 16.8 L Neut # (Auto) 8.5 H ABG pCO2 ABG pO2 ABG HCO3 ABG Total CO2 ABG O2 Saturation ABG Base Excess Chloride 113 H Procalcitonin 3.04 H* 10/20/17 11:24 RBC Hgb Hct Neut % (Auto) Lymph % (Auto) Neut # (Auto) ABG pCO2 32 L ABG pO2 58.0 L ABG HCO3 18.6 L ABG Total CO2 19.6 L ABG O2 Saturation 89.2 L ABG Base Excess -6.0 L Chloride Procalcitonin - Diagnostic Findings CT scan - chest: image reviewed (Diffuse groundglass opacities.) Assessment and Plan (1) Acute respiratory failure with hypoxia Status: Acute Current Visit: Yes (2) Abnormal CT scan, chest Status: Acute Current Visit: Yes (3) COPD (chronic obstructive pulmonary disease) Status: Acute Current Visit: Yes - Assessment and Plan Plan: Pt currently on 4L per NC, no O2 or BT's at home. Requiring increased oxygen throughout the day. CT chest shows diffuse groundglass infiltrates ? infection vs inflammatory process. Currently on pulmicort BID, A/A QID, will increase her A/A to q4hr and continue on abx with vanco, cefepime and doxy along with solumedrol 60mg q8hr. Could increase to q6hr if she continues to worsen. If no improvement noted would proceed with bronchoscopy next week, will follow. Follow lab with procalcitonin - Time Spent With Patient Total time spent is greater than 50% in coordination of care (as documented) at patient's floor/unit and/or counseling patient: 25 - 35 minutes <Florentin Rosen - Last Filed: 10/21/17 14:33> Exam Vital signs: Temperature 97.5 F 10/21/17 07:55 Pulse Rate 115 H 10/21/17 08:00 Respiratory Rate 28 H 10/21/17 13:08 Blood Pressure 109/64 10/21/17 07:55 Pulse Oximetry 99 10/21/17 13:41 Results - Laboratory Findings CBC and BMP: 10/21/17 03:40 10/21/17 03:40 ABG ABG pH 7.366 (7.350-7.450) 10/20/17 11:24 ABG pCO2 32 MMHG (34.0-45.0) L 10/20/17 11:24 ABG pO2 58.0 MMHG (80.0-100.0) L 10/20/17 11:24 ABG O2 Saturation 89.2 % (95.0-98.0) L 10/20/17 11:24 Abnormal lab findings: Abnormal Labs 10/21/17 10/21/17 03:40 03:40 WBC 11.5 H RBC 3.15 L Hgb 10.4 L Hct 31.1 L Neut % (Auto) 86.4 H Lymph % (Auto) 7.7 L Neut # (Auto) 10.0 H Lymph # (Auto) 0.9 L Abs Immat Gran (auto) 0.04 H Neutrophils % (Manual) 89.0 H Lymphocytes % (Manual) 6.0 L Neutrophils # (Manual) 10.2 H Lymphocytes # (Manual) 0.7 L Potassium 3.4 L D Chloride 119 H Carbon Dioxide 18 L Glucose 138 H Calculated Osmolality 282 H AST 40 H Alkaline Phosphatase 27 L Albumin 3.0 L Albumin/Globulin Ratio 0.8 L - Diagnostic Findings Chest x-ray: report reviewed, image reviewed CT scan - chest: report reviewed, image reviewed Assessment and Plan (1) Pneumonia Status: Acute Assessment and plan: Severe bilateral pneumonia. Presented with significant left shift and bilateral infiltrates by CXR and CT. Recommend empiric antibiotics including Cefepime, Vanco and doxycycline. Add empiric corticosteroids in case of hypersensitivity pneumonitis, organizing pneumonia. If she is not improved on Monday we will plan to perform bronchoscopy. Current Visit: Yes (2) Acute respiratory failure with hypoxia Status: Acute Assessment and plan: Was using Vapotherm but continued to have increasing dyspnea and O2 needs. Presently on BIPAP 16/6 rate 12. She is tolerating this at the moment and O2 sat 99%. Current Visit: Yes - Time Spent With Patient Total time spent is greater than 50% in coordination of care (as documented) at patient's floor/unit and/or counseling patient:
[2017-10-20] MEDS ORDERED: LEVOFLOXACIN PB 750 MG/150 ML BAG IV SCH (16:00)
[2017-10-20] MEDS: CEFEPIME 1 GM in NS 100 ML IV SCH ×2 (16:16→20:35)
[2017-10-20] MEDS: SALINE FLUSH 10ml SYRINGE IVF PRN (16:16)
[2017-10-20] MEDS: NALOXEGOL 12.5 MG TABLET PO SCH (17:23)
[2017-10-20 17:45] VITALS: BMI 21.2
[2017-10-20] MEDS: LEVOFLOXACIN PB 750 MG/150 ML BAG IV SCH (18:54)
[2017-10-20] MEDS: ZOLPIDEM 10 MG TABLET PO SCH (21:11)
[2017-10-20] MEDS: METHYLPREDNISOLONE SOD SUCC 125mg/2ml INJECTION IVP SCH (21:12)
[2017-10-21] MEDS: ACETAMINOPHEN 500 MG TABLET PO PRN ×2 (00:54→21:11)
[2017-10-21] MEDS: NS 1,000 ML IV SCH (02:23)
[2017-10-21] MEDS: CEFEPIME 1 GM in NS 100 ML IV SCH ×4 (02:29→21:12)
[2017-10-21] MEDS: Oxycodone/Apap 10/325 1 TAB PO PRN ×4 (03:36→21:11)
[2017-10-21] MEDS: ALBUTEROL/IPRATROPIUM 2.5mg-0.5mg/3ml NEB AEROSOL SCH ×6 (04:00→23:30)
[2017-10-21] MEDS: NALOXEGOL 12.5 MG TABLET PO SCH (06:59)
[2017-10-21] MEDS: BUDESONIDE INH.SOLN 0.5mg/2ml NEB AEROSOL SCH ×2 (07:45→19:59)
[2017-10-21] MEDS: GUAIFENESIN/D-METHORPHAN 600mg/30mg TABLET PO SCH ×2 (08:48→21:12)
[2017-10-21] MEDS: GABAPENTIN 800 MG TABLET PO SCH ×3 (08:48→21:12)
[2017-10-21] MEDS: ENOXAPARIN 40 MG/0.4 ML INJECTION SQ SCH (08:48)
[2017-10-21] MEDS: METHYLPREDNISOLONE SOD SUCC 125mg/2ml INJECTION IVP SCH ×3 (08:49→21:11)
[2017-10-21] MEDS: NICOTINE 14 MG PATCH TD SCH (08:49)
[2017-10-21] MEDS: NICOTINE PATCH REMOVAL TD SCH (08:50)
[2017-10-21] MEDS: PANTOPRAZOLE 40 MG INJECTION IVP SCH (08:50)
[2017-10-21] MEDS: DOXYCYCLINE 100 MG in NS 250ml 250 ML IV SCH ×2 (10:20→22:00)
[2017-10-21] MEDS ORDERED: FUROSEMIDE 40 MG/4 ML INJECTION IVP ONE ×2 (12:16→13:15)
--- NOTE | 2017-10-21 12:35 | Progress Note ---
- Date 10/21/17 Subjective: I was called by RT to check on Colleen. She is much more tachypneic with RR up to 40 per minute and oxygen needs have increased - she's now on 33L per vapotherm. She has also notes chest pain to the left of her chest - before it was on the right. She is anxious and very concerned about her change in condition. We discussed BiPAP trial - she is willing to try. We also discussed her thoughts on intubation and mechanical ventilation - she would want this done. Objective Vital signs: Temperature 97.5 F 10/21/17 07:55 Pulse Rate 115 H 10/21/17 08:00 Respiratory Rate 40 H 10/21/17 11:39 Blood Pressure 109/64 10/21/17 07:55 Pulse Oximetry 95 10/21/17 11:39 Height/Weight/BMI: Height 1.6 m Weight 56.3 kg Body Mass Index 21.2 - Constitutional Present: moderate distress, thin - Routine HEENT Exam Head: Present: normocephalic Eye: Absent: conjunctival icterus, scleral injection - Routine Respiratory Exam Present: dyspnea, prolonged expiratory phase, respiratory distress, wheezes, crackles, diminished air movement - Routine Cardiovascular Exam Present: RRR, S1, S2 - Routine Abdominal Exam Present: soft - Routine Extremities Exam Present: no edema - Routine Back/Spine/Pelvis Exam Back/Spine: Present: full ROM - Routine Skin Exam Present: intact, dry, warm Comments: very tanned - Routine Neurological Exam Present: alert, oriented X3, CN II-XII intact, normal speech - Routine Psychiatric Exam Present: normal affect, normal thought process, cooperative, anxious Results - Labs CBC & Chem 7: 10/21/17 03:40 10/21/17 03:40 Assessment and Plan (1) Pneumonia Current visit: Yes Status: Acute Assessment and Plan: Impression CAP vs atypical pneumonia vs pulmonary hemorrhage vs other... Acute hypoxic respiratory failure Acute febrile illness COPD Right shoulder pain GERD Chronic pain Chronic constipation, narcotic related Rheumatoid arthritis Osteoporosis Tachycardia-POA Dehydration At risk for tick or mosquito borne illness Tobacco dependency Plan CXR reviewed - concerning for pulmonary edema. DC IVF. Give Lasix 40 mg IV x1. Trial BiPAP. If no improvement, will need to intubate/transfer to CCU. Increase Solu-Medrol to Q6h. Continue cefepime and vanco and doxy. Continue Duoneb, budesonide, acapella Trend trop. Consider echo. Repeat CXR in am. F/U on BiPAP 21/10, FiO2 50%, tv >700 - pt tolerating well and improving. Critically ill. 44 minutes spent at bedside, coordinating care, and follow-up. Discussed with Dr. Masters and RT. DVT Prophylaxis: Lovenox Resuscitation Status: Full Code - Time spent with patient Time with patient PN: 25 minutes - Physician Narrative Physician: Sixto Masters MD Narrative: Date: 10/21/17 Time: 1515 Have independently interviewed and examined pt. Chart reviewed. Case discussed with my PATIENT SERVICE REP. Care plan developed with my supervision; agree with above. Resting in bed, tolerating BiPAP. Feels helping her to breath easier. Lungs still feel like they are on fire. Nausea resolved. Appetite varies. Weak in general, but able to move more in bed and converse better. Lungs: decreased/coarse. Better air movement with BiPAP. CV: tachy, regular AB : soft nt BS decreased MSE: awake alert appropriate Plan: BIPAP for respiratory support-tolerating and currently responding. Continue antibiotics, increase frequency of steroids, continue neb treatment. Recheck lab and CXR in am. Dr Rosen's input appreciated. Hospital Course Summary Disclaimer: The visit summary below is not to be considered part of the above Progress Note. Hospital Course: 10/19/17 Admit to observation status. Will change antibiotic therapy to ceftriaxone and doxycycline to cover both community-acquired pneumonia as well as possible tickborne illness. She does not have encephalopathic symptoms per se, so we'll hold off on West Nile viral testing. If she does not improve on current therapy, could consider a tickborne illness panel and West Nile virus testing. We will obtain CT of the chest in the morning so that we can hydrate her overnight. Provide inhaled treatments, DuoNeb and budesonide. Mucinex DM BID to decrease cough/congestion. Acapella to help loosen secretions. I discussed with her the importance of using her home Advair to help maintain lung function. She understands and expresses agreement. We'll provide NicoDerm patch at her request due to tobacco abuse. RT for tobacco cessation. Continue supportive medications for her pain, GERD. Assess right shoulder x- rays in a.m., ice pack when necessary. Will add Movantik to help with her chronic constipation. This may be contributing to her abdominal symptoms. Hydration should help as well. Monitor telemetry with tachycardia. I expect this will improve with IV fluids. Monitor labs in the morning. DVT prophylaxis: Lovenox. Patient would like to establish with an alternate cable installer repairer helper. I have recommended that she discuss with her primary care provider, there are cable installer repairer helper at both via [facility] and with the [facility] group in [place] that could potentially assist her. 10/20/17 Respiratory decreasing - increased labor breathing and hypoxic, requiring oxygen. Will change admission status to inpatient due to continue care needs. CT chest reviewed - neoplasm is not mentioned in wide differential given by radiologist. Reports h/o exposure to mold prior to illness. Solu-Medrol 125mg IV now then 62.5mg q 8hr. O2 sats dropped to 87-88% on RA. Supplemental O2 initiated. Did need to start Vapotherm for respiratory support. Day 2 ceftriaxone and doxy. Discussed with Dr. Rosen. Will broaden coverage to include cefepime and vancomycin and continue doxy. D/C Rocephin. Continue DuoNeb, budesonide, acapella. Shoulder X-ray neg for acute injury. Solu-Medrol may help with her shoulder pain - suspect arthritic etiology. 10/21/17 CXR reviewed - concerning for pulmonary edema. DC IVF. Give Lasix 40 mg IV x1. Trial BiPAP. If no improvement, will need to intubate/transfer to CCU. Increase Solu-Medrol to Q6h. Continue cefepime and vanco and doxy. Continue Duoneb, budesonide, acapella. Trend trop. Consider echo. Repeat CXR in am. F/U on BiPAP 21/10, FiO2 50%, tv >700 - pt tolerating well and improving.
[2017-10-21] MEDS: MORPHINE SULFATE 4mg INJECTION IVP PRN ×2 (13:08→23:25)
[2017-10-21] MEDS: SALINE FLUSH 10ml SYRINGE IVF PRN (13:09)
[2017-10-21] MEDS: ZOLPIDEM 10 MG TABLET PO SCH (21:12)
[2017-10-22] MEDS: CEFEPIME 1 GM in NS 100 ML IV SCH ×4 (02:42→21:09)
[2017-10-22] MEDS: Oxycodone/Apap 10/325 1 TAB PO PRN ×4 (02:55→21:11)
[2017-10-22] MEDS: ACETAMINOPHEN 500 MG TABLET PO PRN ×2 (02:57→13:32)
[2017-10-22] MEDS: METHYLPREDNISOLONE SOD SUCC 125mg/2ml INJECTION IVP SCH ×4 (03:28→21:02)
[2017-10-22] MEDS: ALBUTEROL/IPRATROPIUM 2.5mg-0.5mg/3ml NEB AEROSOL SCH ×6 (03:51→23:58)
[2017-10-22] MEDS: MORPHINE SULFATE 4mg INJECTION IVP PRN (05:36)
[2017-10-22] MEDS: NALOXEGOL 12.5 MG TABLET PO SCH (06:04)
[2017-10-22] MEDS: BUDESONIDE INH.SOLN 0.5mg/2ml NEB AEROSOL SCH ×2 (07:58→20:09)
[2017-10-22] MEDS ORDERED: BISACODYL 10 MG SUPPOSITORY RECTALLY PRN (08:42)
[2017-10-22] MEDS: PANTOPRAZOLE 40 MG INJECTION IVP SCH (08:42)
[2017-10-22] MEDS: ENOXAPARIN 40 MG/0.4 ML INJECTION SQ SCH (08:42)
[2017-10-22] MEDS: NICOTINE 14 MG PATCH TD SCH (08:43)
[2017-10-22] MEDS: NICOTINE PATCH REMOVAL TD SCH (08:43)
[2017-10-22] MEDS: DOXYCYCLINE 100 MG in NS 250ml 250 ML IV SCH ×2 (09:54→22:38)
[2017-10-22] MEDS: POLYETHYL GLYCOL 3350 17gm PACKET PO SCH (10:27)
[2017-10-22] MEDS: GUAIFENESIN/D-METHORPHAN 600mg/30mg TABLET PO SCH ×2 (10:27→21:09)
[2017-10-22] MEDS: GABAPENTIN 800 MG TABLET PO SCH ×3 (10:28→21:09)
--- NOTE | 2017-10-22 11:35 | XRay Report ---
Indication: F/U infiltrate PROCEDURE: XR chest 1V: Encounter: Initial Comparison: October 19, 2017 Findings: Significant worsening in severe bilateral airspace disease with diffuse groundglass opacity and consolidation throughout both lungs. Trace effusions. No pneumothorax. Heart size and mediastinal contours are grossly stable. Impression: Significant worsening in diffuse bilateral airspace disease. .
--- NOTE | 2017-10-22 11:49 | XRay Report ---
Indication: resp failure PROCEDURE: XR chest 1V: Encounter: Initial Comparison: October 21, 2017 Findings: Diffuse groundglass type airspace opacity throughout both lungs without significant interval change. Trace effusions. No pneumothorax. Heart size and mediastinal contours are stable. Pulmonary vascularity is obscured. Impression: Stable diffuse bilateral infiltrates. .
--- NOTE | 2017-10-22 13:11 | Progress Note ---
- Date 10/22/17 Subjective: F/U: Acute hypoxic respiratory failure, Atypical pneumonia vs pneumonitis About the same. Goes between Vapomist any BiPAP for respiratory support. Winds readily without resp support. Cough, but not producing sputum. Notes very tired/ weak. Able to get up to bathroom with nursing help. Reports bowels are moving ( not loose or urgent). No appetite. Nausea and dizziness less. Not having cramps or spasm to ext. Objective Vital signs: Temperature 96.1 F L 10/22/17 08:00 Pulse Rate 89 10/22/17 08:00 Respiratory Rate 28 H 10/22/17 12:06 Blood Pressure 127/73 10/22/17 08:00 Pulse Oximetry 95 10/22/17 12:06 Height/Weight/BMI: Height 1.6 m Weight 56.3 kg Body Mass Index 21.2 - Constitutional Present: moderate distress, well nourished, well developed, average body habitus , cooperative. Absent: agitated, somnolent, obtunded - Routine HEENT Exam Head: Present: normocephalic, atraumatic Eye: Present: EOMI, PERRL ENT: Present: mucous membranes dry - Routine Respiratory Exam Present: decreased breath sounds, respiratory distress, diminished air movement - Routine Cardiovascular Exam Present: no murmur, tachycardia (Regular) - Routine Abdominal Exam Present: soft, non distended, non tender. Absent: normoactive bowel sounds - Routine Extremities Exam Present: no edema, pulses intact. Absent: cyanosis, clubbing - Routine Skin Exam Present: dry, warm - Routine Neurological Exam Present: alert, oriented X3, CN II-XII intact, moving all extremities, vision grossly intact, hearing grossly intact, normal speech. Absent: motor deficit, altered mental status - Routine Psychiatric Exam Present: normal affect, cooperative, anxious (Mild secondary to respiratory status). Absent: agitated Results - Labs CBC & Chem 7: 10/22/17 05:48 10/22/17 05:48 Assessment and Plan (1) Pneumonia Current visit: Yes Status: Acute Assessment and Plan: Impression CAP vs atypical pneumonia vs pulmonary hemorrhage vs other... Acute hypoxic respiratory failure Acute febrile illness COPD Right shoulder pain GERD Chronic pain Chronic constipation, narcotic related Rheumatoid arthritis Osteoporosis Tachycardia-POA Dehydration At risk for tick or mosquito borne illness Tobacco dependency Plan Continue cefepime, vancomycin, and doxycycline for antimicrobial coverage. Solu- Medrol continues at 62.5mg q6hr. Going between Vapomyst and BiPAP for respiratory support. Will hold Lovenox as possible Bronch tomorrow. Recheck lab and Xray in am. DVT Prophylaxis: SCD's, Lovenox Resuscitation Status: Full Code - Time spent with patient Time with patient PN: 25 minutes - Physician Narrative Physician: Sixto Masters MD Narrative: Date: 10/22/17 Time: 1307 Hospital Course Summary Disclaimer: The visit summary below is not to be considered part of the above Progress Note. Hospital Course: 10/19/17 Admit to observation status. Will change antibiotic therapy to ceftriaxone and doxycycline to cover both community-acquired pneumonia as well as possible tickborne illness. She does not have encephalopathic symptoms per se, so we'll hold off on West Nile viral testing. If she does not improve on current therapy, could consider a tickborne illness panel and West Nile virus testing. We will obtain CT of the chest in the morning so that we can hydrate her overnight. Provide inhaled treatments, DuoNeb and budesonide. Mucinex DM BID to decrease cough/congestion. Acapella to help loosen secretions. I discussed with her the importance of using her home Advair to help maintain lung function. She understands and expresses agreement. We'll provide NicoDerm patch at her request due to tobacco abuse. RT for tobacco cessation. Continue supportive medications for her pain, GERD. Assess right shoulder x- rays in a.m., ice pack when necessary. Will add Movantik to help with her chronic constipation. This may be contributing to her abdominal symptoms. Hydration should help as well. Monitor telemetry with tachycardia. I expect this will improve with IV fluids. Monitor labs in the morning. DVT prophylaxis: Lovenox. Patient would like to establish with an alternate rope rider. I have recommended that she discuss with her primary care provider, there are rope rider at both via [facility] and with the [facility] group in [place] that could potentially assist her. 10/20/17 Respiratory decreasing - increased labor breathing and hypoxic, requiring oxygen. Will change admission status to inpatient due to continue care needs. CT chest reviewed - neoplasm is not mentioned in wide differential given by radiologist. Reports h/o exposure to mold prior to illness. Solu-Medrol 125mg IV now then 62.5mg q 8hr. O2 sats dropped to 87-88% on RA. Supplemental O2 initiated. Did need to start Vapotherm for respiratory support. Day 2 ceftriaxone and doxy. Discussed with Dr. Rosen. Will broaden coverage to include cefepime and vancomycin and continue doxy. D/C Rocephin. Continue DuoNeb, budesonide, acapella. Shoulder X-ray neg for acute injury. Solu-Medrol may help with her shoulder pain - suspect arthritic etiology. 10/21/17 CXR reviewed - concerning for pulmonary edema. DC IVF. Give Lasix 40 mg IV x1. Trial BiPAP. If no improvement, will need to intubate/transfer to CCU. Increase Solu-Medrol to Q6h. Continue cefepime and vanco and doxy. Continue Duoneb, budesonide, acapella. Trend trop. Consider echo. Repeat CXR in am. F/U on BiPAP 21/10, FiO2 50%, tv >700 - pt tolerating well and improving.
[2017-10-22] MEDS: SALINE FLUSH 10ml SYRINGE IVF PRN (15:00)
[2017-10-22] MEDS ORDERED: SCOPOLAMINE PATCH REMOVAL TD SCH (17:00)
[2017-10-22] MEDS: ZOLPIDEM 10 MG TABLET PO SCH (21:09)
[2017-10-23] MEDS: NYSTATIN 500,000 units/5 ml ORAL LIQUID PO SCH ×5 (01:47→21:17)
[2017-10-23] MEDS: Oxycodone/Apap 10/325 1 TAB PO PRN ×4 (03:03→17:54)
[2017-10-23] MEDS: CEFEPIME 1 GM in NS 100 ML IV SCH ×4 (03:10→20:45)
[2017-10-23] MEDS: ALBUTEROL/IPRATROPIUM 2.5mg-0.5mg/3ml NEB AEROSOL SCH ×6 (03:41→23:58)
[2017-10-23] MEDS: METHYLPREDNISOLONE SOD SUCC 125mg/2ml INJECTION IVP SCH ×4 (04:01→21:18)
[2017-10-23] MEDS: BUDESONIDE INH.SOLN 0.5mg/2ml NEB AEROSOL SCH ×2 (08:15→20:46)
[2017-10-23] MEDS: PANTOPRAZOLE 40 MG INJECTION IVP SCH (08:53)
[2017-10-23] MEDS: NICOTINE 14 MG PATCH TD SCH (09:01)
[2017-10-23] MEDS: GABAPENTIN 800 MG TABLET PO SCH ×3 (09:02→21:17)
[2017-10-23] MEDS: GUAIFENESIN/D-METHORPHAN 600mg/30mg TABLET PO SCH ×2 (09:02→21:17)
[2017-10-23] MEDS: POLYETHYL GLYCOL 3350 17gm PACKET PO SCH (09:02)
--- NOTE | 2017-10-23 09:02 | XRay Report ---
Indication: pneumonia Procedure: XR chest 2V: Encounter: Subsequent Comparison: Chest radiograph 10/22/2017 and 10/21/2017, chest CT 10/20/2017 Technique: AP and lateral radiographs of the chest were obtained. Findings: Lungs and airways: Normal lung volumes. Similar to mildly worsened diffuse bilateral interstitial and alveolar airspace disease. Pleura: No pleural effusion or pneumothorax. Heart and mediastinum: Aortic atherosclerosis. The cardiomediastinal silhouette and great vessels are otherwise within normal limits. Osseous structures and soft tissues: No acute osseous abnormality is seen. Impression: Similar to mildly worsened diffuse bilateral interstitial and alveolar airspace disease. .
[2017-10-23] MEDS: NICOTINE PATCH REMOVAL TD SCH ×2 (09:03→09:05)
[2017-10-23] MEDS: DOXYCYCLINE 100 MG in NS 250ml 250 ML IV SCH ×2 (10:06→21:25)
[2017-10-23] MEDS: ACETAMINOPHEN 500 MG TABLET PO PRN ×2 (11:01→21:17)
--- NOTE | 2017-10-23 16:43 | Progress Note ---
- Date 10/23/17 Subjective: F/U: Acute hypoxic respiratory failure, Atypical pneumonia vs pneumonitis Doing about the same. Breathing maybe slightly better but still very congested. Needing Vapotherm to help breathing; transitions to BiPAP when sleeping. Does tolerate BiPAP well-feels very helpful. Oral drive decreased. Taking liquids in okay. Not feeling nausea but does note some abdominal bloating. Stools moving. Very weak in general-moving in bed/talking quite taxing. Objective Vital signs: Temperature 96.8 F 10/23/17 16:05 Pulse Rate 67 10/23/17 16:05 Respiratory Rate 28 H 10/23/17 16:09 Blood Pressure 139/75 10/23/17 16:05 Pulse Oximetry 95 10/23/17 16:09 Height/Weight/BMI: Height 1.6 m Weight 58.4 kg Body Mass Index 21.2 - Constitutional Present: moderate distress, well nourished, well developed, average body habitus , thin, cooperative. Absent: agitated - Routine HEENT Exam Head: Present: normocephalic, atraumatic Eye: Present: EOMI, PERRL ENT: Present: mucous membranes moist - Routine Respiratory Exam Present: decreased breath sounds, respiratory distress, wheezes, crackles - Routine Cardiovascular Exam Present: tachycardia (Regular ) - Routine Abdominal Exam Present: soft, non distended, non tender. Absent: normoactive bowel sounds ( Decreased) - Routine Extremities Exam Present: edema (Trace upper lower), pulses intact. Absent: cyanosis, clubbing Comments: SCD in place - Routine Musculoskeletal Exam Musculoskeletal: Present: no clubbing or cyanosis - Routine Skin Exam Present: warm, normal turgor. Absent: dry (Moist) - Routine Neurological Exam Present: alert, oriented X3, CN II-XII intact, moving all extremities, vision grossly intact, hearing grossly intact, normal speech. Absent: motor deficit, altered mental status - Routine Psychiatric Exam Present: normal affect, normal thought process, cooperative Results - Labs CBC & Chem 7: 10/23/17 04:01 10/23/17 04:01 Assessment and Plan (1) Pneumonia Current visit: Yes Status: Acute Assessment and Plan: Impression CAP vs atypical pneumonia vs pulmonary hemorrhage vs other... Acute hypoxic respiratory failure Acute febrile illness COPD Right shoulder pain GERD Chronic pain Chronic constipation, narcotic related Rheumatoid arthritis Osteoporosis Tachycardia-POA Dehydration At risk for tick or mosquito borne illness Tobacco dependency Plan Continue cefepime, vancomycin, and doxycycline for antimicrobial coverage. Solu- Medrol continues at 62.5mg q6hr. Going between Vapomyst and BiPAP for respiratory support. Add 10mEq KCl daily as potassium low. Weight with trend up - IVF have been stopped. Would hold on furosemide at this time, but may need. Recheck lab in am. DVT Prophylaxis: SCD's GI Prophylaxis: Protonix Resuscitation Status: Full Code - Time spent with patient Time with patient PN: 25 minutes - Physician Narrative Physician: Sixto Masters MD Narrative: Date: 10/23/17 Time: 1640 Hospital Course Summary Disclaimer: The visit summary below is not to be considered part of the above Progress Note. Hospital Course: 10/19/17 Admit to observation status. Will change antibiotic therapy to ceftriaxone and doxycycline to cover both community-acquired pneumonia as well as possible tickborne illness. She does not have encephalopathic symptoms per se, so we'll hold off on West Nile viral testing. If she does not improve on current therapy, could consider a tickborne illness panel and West Nile virus testing. We will obtain CT of the chest in the morning so that we can hydrate her overnight. Provide inhaled treatments, DuoNeb and budesonide. Mucinex DM BID to decrease cough/congestion. Acapella to help loosen secretions. I discussed with her the importance of using her home Advair to help maintain lung function. She understands and expresses agreement. We'll provide NicoDerm patch at her request due to tobacco abuse. RT for tobacco cessation. Continue supportive medications for her pain, GERD. Assess right shoulder x- rays in a.m., ice pack when necessary. Will add Movantik to help with her chronic constipation. This may be contributing to her abdominal symptoms. Hydration should help as well. Monitor telemetry with tachycardia. I expect this will improve with IV fluids. Monitor labs in the morning. DVT prophylaxis: Lovenox. Patient would like to establish with an alternate records clerk. I have recommended that she discuss with her primary care provider, there are records clerk at both via [facility] [place] that could potentially assist her. 10/20/17 Respiratory decreasing - increased labor breathing and hypoxic, requiring oxygen. Will change admission status to inpatient due to continue care needs. CT chest reviewed - neoplasm is not mentioned in wide differential given by radiologist. Reports h/o exposure to mold prior to illness. Solu-Medrol 125mg IV now then 62.5mg q 8hr. O2 sats dropped to 87-88% on RA. Supplemental O2 initiated. Did need to start Vapotherm for respiratory support. Day 2 ceftriaxone and doxy. Discussed with Dr. Rosen. Will broaden coverage to include cefepime and vancomycin and continue doxy. D/C Rocephin. Continue DuoNeb, budesonide, acapella. Shoulder X-ray neg for acute injury. Solu-Medrol may help with her shoulder pain - suspect arthritic etiology. 10/21/17 CXR reviewed - concerning for pulmonary edema. DC IVF. Give Lasix 40 mg IV x1. Trial BiPAP. If no improvement, will need to intubate/transfer to CCU. Increase Solu-Medrol to Q6h. Continue cefepime and vanco and doxy. Continue Duoneb, budesonide, acapella. Trend trop. Consider echo. Repeat CXR in am. F/U on BiPAP 21/10, FiO2 50%, tv >700 - pt tolerating well and improving. 10/22/17 Continue cefepime, vancomycin, and doxycycline for antimicrobial coverage. Solu- Medrol continues at 62.5mg q6hr. Going between Vapomyst and BiPAP for respiratory support. Will hold Lovenox as possible Bronch tomorrow. 10/23/17 Continue cefepime, vancomycin, and doxycycline for antimicrobial coverage. Solu- Medrol continues at 62.5mg q6hr. Going between Vapomyst and BiPAP for respiratory support. Add 10mEq KCl daily as potassium low. Weight with trend up - IVF have been stopped. Would hold on furosemide at this time, but may need. Recheck lab in am.
--- NOTE | 2017-10-23 17:21 | Pulmonology Progress Note ---
Subjective Interval history: Pt in bed on VT, states was just up so is very SOB at thi9s time. Doesn't feel much better overall, still with cough but no sputum. Exam Vital signs: Temperature 96.8 F 10/23/17 16:05 Pulse Rate 67 10/23/17 16:05 Respiratory Rate 28 H 10/23/17 16:09 Blood Pressure 139/75 10/23/17 16:05 Pulse Oximetry 95 10/23/17 16:09 Inpatient Medications: Generic Name Dose Route Start Last Admin Trade Name Freq PRN Reason Stop Dose Admin Acetaminophen 500 mg 10/19/17 17:50 10/23/17 11:01 Tylenol PO 500 mg Q5H PRN Administration Discomfort Albuterol/Ipratropium 3 ml 10/19/17 16:48 10/20/17 13:10 Duoneb AEROSOL 3 ml Q4HR PRN Administration Shortness of air Albuterol/Ipratropium 3 ml 10/20/17 20:00 10/23/17 16:09 Duoneb AEROSOL 3 ml Q4HR CHRIS Administration Baclofen 10 mg 10/19/17 16:48 10/23/17 17:01 Lioresal PO 10 mg TID PRN Administration PRN orders Bisacodyl 10 mg 10/22/17 08:42 Dulcolax RECTALLY DAILY PRN Constipation Budesonide 0.5 mg 10/19/17 19:00 10/23/17 08:15 Pulmicort Inhalation AEROSOL 0.5 mg RTBID CHRIS Administration Enoxaparin Sodium 40 mg 10/21/17 09:00 10/22/17 08:42 Lovenox SQ 40 mg DAILY CHRIS Administration Gabapentin 800 mg 10/19/17 21:00 10/23/17 16:00 Neurontin PO 800 mg TID CHRIS Administration Guaifenesin/Dextromethorphan 1 tab 10/19/17 21:00 10/23/17 09:02 Mucinex Dm PO 1 tab BID CHRIS Administration Doxycycline Hyclate 100 mg/ 250 mls @ 250 mls/hr 10/19/17 21:00 10/23/17 11: 20 Sodium Chloride IV Infused Q12HR CHRIS Infusion Cefepime HCl 1 gm/ Sodium 100 mls @ 200 mls/hr 10/20/17 14:30 10/23/17 14:32 Chloride IV Infused Q6H CHRIS Infusion Vancomycin HCl 1,000 mg/ 250 mls @ 250 mls/hr 10/23/17 17:00 10/23/17 17:02 Sodium Chloride IV 250 mls/hr Q12H CHRIS Administration Lorazepam 0.5 mg 10/20/17 13:05 10/21/17 07:41 Ativan Inj IVP 0.5 mg Q6H PRN Administration Magnesium Hydroxide 30 ml 10/22/17 08:42 Mom PO DAILY PRN Constipation Meclizine HCl 25 mg 10/19/17 16:48 Antivert PO Q6H PRN Dizziness Methylprednisolone Sodium Succinate 62.5 mg 10/21/17 15:00 10/23/17 15:59 Solu-Medrol IVP 62.5 mg Q6HR CHRIS Administration Morphine Sulfate 4 mg 10/19/17 16:48 10/22/17 05:36 Morphine Sulfate Inj IVP 4 mg Q3H PRN Administration Pain Nicotine 14 mg 10/19/17 17:30 10/23/17 09:01 Nicoderm TD 14 mg DAILY CHRIS Administration Nicotine 1 removal 10/20/17 09:00 10/23/17 09:05 Nicotine Patch Removal TD Not Given DAILY CHRIS Nystatin 5 ml 10/23/17 01:08 10/23/17 17:14 Mycostatin PO 5 ml QID CHRIS Administration Ondansetron HCl 8 mg 10/19/17 16:48 Zofran Odt Tablet PO TID PRN Nausea &/or vomiting Oxycodone/Acetaminophen 1 tab 10/20/17 19:14 10/23/17 13:31 Percocet 10/325 PO 1 tab Q4H PRN Administration Pain Pantoprazole Sodium 40 mg 10/19/17 16:48 10/23/17 08:53 Protonix Iv IVP 40 mg DAILY CHRIS Administration Polyethylene Glycol 17 gm 10/22/17 09:00 10/23/17 09:02 Miralax PO 17 gm DAILY CHRIS Administration Potassium Chloride 10 meq 10/24/17 17:30 Micro-K 10 Meq Capsule PO WB CHRIS Prochlorperazine Edisylate 10 mg 10/19/17 16:48 10/22/17 08:43 Compazine Iv IVP 10 mg Q6H PRN Administration Nausea &/or vomiting Sodium Chloride 10 - 80 ml 10/19/17 14:36 10/22/17 15:00 Iv Flush IVF 10 ml PRN PRN Administration Flushing Zolpidem Tartrate 10 mg 10/19/17 21:00 10/22/17 21:09 Ambien PO 10 mg HS CHRIS Administration Discontinued Medications Generic Name Dose Route Start Last Admin Trade Name Freq PRN Reason Stop Dose Admin Albuterol/Ipratropium 3 ml 10/19/17 16:03 10/19/17 16:13 Duoneb AEROSOL 10/19/17 16:04 3 ml O ONE Administration Albuterol/Ipratropium 3 ml 10/19/17 19:00 10/20/17 14:48 Duoneb AEROSOL 3 ml RTQID CHRIS Administration Furosemide 40 mg 10/21/17 12:16 10/21/17 12:26 Lasix 40 Mg/4 Ml IVP 10/21/17 12:17 40 mg DAILY ONE Administration Furosemide 40 mg 10/21/17 13:15 10/21/17 13:20 Lasix 40 Mg/4 Ml IVP 10/21/17 13:16 Not Given O ONE Sodium Chloride 1,000 mls @ 999.9 mls/hr 10/19/17 14:35 10/19/17 16:00 Normal Saline IV 10/19/17 15:34 Infused .Q1H ONE Infusion Levofloxacin/Dextrose 750 mg in 150 mls @ 100 mls/hr 10/19/17 16:15 10/20/17 18:54 Levaquin 750 Mg Premix IV Not Given O CHRIS Sodium Chloride 1,000 mls @ 125 mls/hr 10/19/17 16:45 10/20/17 12:47 Normal Saline IV Infused .Q8H CHRIS Infusion Levofloxacin/Dextrose 750 mg in 150 mls @ 100 mls/hr 10/20/17 16:00 Levaquin 750 Mg Premix IV Q24H CHRIS Ceftriaxone Sodium 1 g/ Sodium 100 mls @ 200 mls/hr 10/19/17 18:00 10/19/17 18:59 Chloride IV Infused Q24H CHRIS Infusion Sodium Chloride 1,000 mls @ 75 mls/hr 10/20/17 12:00 10/21/17 12:27 Normal Saline IV Infused .[id number] CHRIS Infusion Vancomycin HCl 1,500 mg/ 500 mls @ 250 mls/hr 10/20/17 15:00 10/20/17 19:34 Sodium Chloride IV 10/20/17 15:01 Infused O ONE Infusion Vancomycin HCl 1,250 mg/ 250 mls @ 200 mls/hr 10/21/17 03:00 10/23/17 16:08 Sodium Chloride IV Not Given Q12H CHRIS Meclizine HCl 25 mg 10/19/17 14:49 10/19/17 16:10 Antivert PO 10/19/17 14:50 25 mg ONCE ONE Administration Methylprednisolone Sodium Succinate 125 mg 10/20/17 12:21 10/20/17 13:01 Solu-Medrol IVP 10/20/17 12:22 125 mg O ONE Administration Methylprednisolone Sodium Succinate 62.5 mg 10/20/17 21:00 10/21/17 08:49 Solu-Medrol IVP 62.5 mg Q8HR CHRIS Administration Naloxegol 12.5 mg 10/20/17 18:02 10/22/17 06:04 Movantik PO 12.5 mg ACB CHRIS Administration Ondansetron HCl 4 mg 10/19/17 14:35 10/19/17 14:58 Zofran IVP 10/19/17 14:36 4 mg O ONE Administration Oxycodone/Acetaminophen 1 tab 10/19/17 16:48 10/20/17 18:37 Percocet 10/325 PO 1 tab Q6H PRN Administration Pain Pharmacy Consult 1 each 10/19/17 17:41 Pharmacy Consult - Fall Risk 10/19/17 17:42 ONE TIME ONE Potassium Chloride 10 meq 10/22/17 12:30 10/22/17 13:06 Micro-K 10 Meq Capsule PO 10/22/17 12:31 10 meq O ONE Administration Scopolamine 1 mg 10/19/17 16:48 10/19/17 17:20 Transderm-Scop Patch TD 10/19/17 16:49 1 mg Q3D CHRIS Administration Scopolamine 1 removal 10/22/17 17:00 10/22/17 18:18 Transderm-Scop Patch Removal TD 10/22/17 17:01 1 removal Q3D CHRIS Administration Vancomycin HCl 1 each 10/20/17 14:05 10/20/17 17:02 Pharmacy Consult - Vancomycin 10/20/17 14:06 1 each O ONE Administration - Constitutional moderate distress, average body habitus, cooperative - Routine HEENT Exam Head: Present: normocephalic, atraumatic Eye: Present: EOMI, PERRL - Routine Neck Exam Present: supple, full ROM, trachea midline - Routine Respiratory Exam Present: decreased breath sounds, crackles. Absent: patient mechanically ventilated - Routine Cardiovascular Exam Present: RRR, S1, S2, no murmur - Routine Abdominal Exam Present: soft, normoactive bowel sounds - Routine Extremities Exam Present: no edema, non tender, full ROM - Routine Back/Spine/Pelvis Exam Back/Spine: Present: full ROM - Routine Skin Exam Present: intact, dry - Routine Neurological Exam Present: alert, oriented X3, CN II-XII intact - Routine Psychiatric Exam Present: normal affect, normal thought process Results - Laboratory Findings Laboratory: Laboratory Results - last 48 hr 10/21/17 10/22/17 10/22/17 20:11 05:48 05:48 WBC 10.9 RBC 3.12 L Hgb 10.4 L Hct 30.3 L MCV 97.1 MCH 33.3 MCHC 34.3 RDW Std Deviation 46.4 Plt Count 306 MPV 9.5 Immature Gran % (Auto) Not performed Neut % (Auto) Not performed Lymph % (Auto) Not performed [place] % (Auto) Not performed Eos % (Auto) Not performed Baso % (Auto) Not performed Neut # (Auto) Not performed Lymph # (Auto) Not performed [place] # (Auto) Not performed Eos # (Auto) Not performed Baso # (Auto) Not performed Abs Immat Gran (auto) Not performed Neutrophils % (Manual) 75.0 H Band Neutrophils % 5.0 Lymphocytes % (Manual) 13.0 L Monocytes % (Manual) 6.0 Metamyelocytes % 1.0 H Neutrophils # (Manual) 8.2 H Band Neutrophils # 0.5 Lymphocytes # (Manual) 1.4 Monocytes # (Manual) 0.7 Metamyelocytes # 0.1 RBC Morph Comment Normal Turbidity Sodium Potassium Chloride Carbon Dioxide Anion Gap BUN Creatinine GFR Calculation BUN/Creatinine Ratio Glucose Calculated Osmolality Calcium Magnesium Total Bilirubin Icterus Index AST ALT Alkaline Phosphatase Troponin I < 0.012 Total Protein Albumin Globulin Albumin/Globulin Ratio Procalcitonin 0.70 Specimen Hemolysis < 15 Vancomycin Trough 10/22/17 10/23/17 10/23/17 05:48 04:01 04:01 WBC 11.3 H RBC 3.19 L Hgb 10.7 L Hct 30.8 L MCV 96.6 MCH 33.5 MCHC 34.7 RDW Std Deviation 45.9 Plt Count 342 MPV 9.4 Immature Gran % (Auto) 1.6 H Neut % (Auto) 82.8 H Lymph % (Auto) 8.4 L [place] % (Auto) 6.9 Eos % (Auto) 0.2 Baso % (Auto) 0.1 Neut # (Auto) 9.4 H Lymph # (Auto) 1.0 [place] # (Auto) 0.8 Eos # (Auto) 0.0 Baso # (Auto) 0.0 Abs Immat Gran (auto) 0.18 H Neutrophils % (Manual) Band Neutrophils % Lymphocytes % (Manual) Monocytes % (Manual) Metamyelocytes % Neutrophils # (Manual) Band Neutrophils # Lymphocytes # (Manual) Monocytes # (Manual) Metamyelocytes # RBC Morph Comment Turbidity < 20 < 20 Sodium 148 H 147 H Potassium 3.5 L 3.4 L Chloride 118 H 120 H Carbon Dioxide 18 L 17 L Anion Gap 12 10 BUN 16.0 D 19.0 H Creatinine 0.8 0.8 GFR Calculation 75 75 BUN/Creatinine Ratio 20 24 Glucose 131 H 143 H Calculated Osmolality 287 H 286 H Calcium 7.8 L D 8.1 L Magnesium 2.1 Total Bilirubin 0.50 Icterus Index < 2 < 2 AST 39 H ALT 16 Alkaline Phosphatase 31 L Troponin I < 0.012 Total Protein 6.5 Albumin 3.2 L Globulin 3.3 Albumin/Globulin Ratio 1.0 L Procalcitonin Specimen Hemolysis 21 < 15 Vancomycin Trough 10/23/17 10/23/17 04:01 14:47 WBC RBC Hgb Hct MCV MCH MCHC RDW Std Deviation Plt Count MPV Immature Gran % (Auto) Neut % (Auto) Lymph % (Auto) [place] % (Auto) Eos % (Auto) Baso % (Auto) Neut # (Auto) Lymph # (Auto) [place] # (Auto) Eos # (Auto) Baso # (Auto) Abs Immat Gran (auto) Neutrophils % (Manual) Band Neutrophils % Lymphocytes % (Manual) Monocytes % (Manual) Metamyelocytes % Neutrophils # (Manual) Band Neutrophils # Lymphocytes # (Manual) Monocytes # (Manual) Metamyelocytes # RBC Morph Comment Turbidity Sodium Potassium Chloride Carbon Dioxide Anion Gap BUN Creatinine GFR Calculation BUN/Creatinine Ratio Glucose Calculated Osmolality Calcium Magnesium Total Bilirubin Icterus Index AST ALT Alkaline Phosphatase Troponin I Total Protein Albumin Globulin Albumin/Globulin Ratio Procalcitonin 0.38 Specimen Hemolysis Vancomycin Trough 21.67 H* - Diagnostic Findings Chest x-ray: image reviewed (Continued diffuse interstitial infiltrates) Assessment and Plan (1) Acute respiratory failure with hypoxia Status: Acute Current Visit: Yes (2) Pneumonia Status: Acute Current Visit: Yes (3) COPD (chronic obstructive pulmonary disease) Status: Acute Current Visit: Yes - Assessment and Plan Plan: Pt currently on VT 28lpm, 25%, bipap on standby 12, 16/8, using for SOB and noc. Currently on pulmicort BID, A/A q4hr and continue on abx with vanco, cefepime and doxy along with solumedrol 60mg q6hr. CXR with no change noted in diffuse infiltrates, may require a bronchoscopy, unfortunately she is high risk 2/2 to her oxygen needs and may require intubation. It is unknown if she would tolerate extubation after that, I did speak to her regarding her risks of intubation and that we need clear expectations prior to doing her bronchoscopy. follow up CXR in am. - Time Spent With Patient Total time spent is greater than 50% in coordination of care (as documented) at patient's floor/unit and/or counseling patient: less than 15 minutes
[2017-10-23] MEDS: LACTOBACILLUS (15B cfu) CAPSULE PO SCH (18:45)
[2017-10-23] MEDS: SALINE FLUSH 10ml SYRINGE IVF PRN (18:59)
--- NOTE | 2017-10-23 19:18 | Pharmacy Consult-Antibiotics ---
Pharmacy Consult-Vancomycin - Laboratory Information WBC 11.3 T/MM3 (4.5-11.0) H 10/23/17 04:01 BUN 19.0 MG/DL (7-17) H 10/23/17 04:01 Creatinine 0.8 mg/dL (0.7-1.2) 10/23/17 04:01 Procalcitonin 0.38 NG/ML 10/23/17 04:01 Vancomycin Trough 21.67 ug/mL (15-20) H* 10/23/17 14:47 - Consult Information Vancomycin consult day 4: goal Vancomycin trough range= 15 to 20 mcg/ml. trough level slightly high at 21.67 mcg/ml. Vancomycin dose adjusted to 1 gm IV Q12h Pharmacy will monitor and adjust. Thank you, Linda Rollins RP
[2017-10-23] MEDS: ZOLPIDEM 10 MG TABLET PO SCH (21:17)
[2017-10-24] MEDS: Oxycodone/Apap 10/325 1 TAB PO PRN (01:40)
[2017-10-24] MEDS: CEFEPIME 1 GM in NS 100 ML IV SCH ×4 (02:29→20:47)
[2017-10-24] MEDS: ALBUTEROL/IPRATROPIUM 2.5mg-0.5mg/3ml NEB AEROSOL SCH ×5 (03:51→19:15)
[2017-10-24] MEDS: METHYLPREDNISOLONE SOD SUCC 125mg/2ml INJECTION IVP SCH ×4 (04:04→20:48)
[2017-10-24] MEDS: ACETAMINOPHEN 500 MG TABLET PO PRN (04:56)
[2017-10-24] MEDS: BUDESONIDE INH.SOLN 0.5mg/2ml NEB AEROSOL SCH ×2 (07:30→19:15)
--- NOTE | 2017-10-24 08:33 | XRay Report ---
Indication: infiltrates PROCEDURE: XR chest 1V: Encounter: Initial Comparison: October 23, 2017 Findings: The appearance of the lungs is slightly improved with decreased overall density of the diffuse airspace disease. No obvious new or worsening infiltrates. No pneumothorax. Small effusions. Heart size and mediastinal contours are stable. Impression: Slight improvement in appearance of the chest. .
[2017-10-24] MEDS: PANTOPRAZOLE 40 MG INJECTION IVP SCH (09:06)
[2017-10-24] MEDS: DOXYCYCLINE 100 MG in NS 250ml 250 ML IV SCH ×2 (10:08→20:47)
[2017-10-24] MEDS: GABAPENTIN 800 MG TABLET PO SCH ×3 (10:30→20:48)
[2017-10-24] MEDS: LACTOBACILLUS (15B cfu) CAPSULE PO SCH ×3 (10:30→17:38)
[2017-10-24] MEDS: NYSTATIN 500,000 units/5 ml ORAL LIQUID PO SCH ×4 (10:30→20:48)
[2017-10-24] MEDS: POLYETHYL GLYCOL 3350 17gm PACKET PO SCH (10:30)
[2017-10-24] MEDS: NICOTINE 14 MG PATCH TD SCH (10:49)
[2017-10-24] MEDS: NICOTINE PATCH REMOVAL TD SCH (10:49)
--- NOTE | 2017-10-24 10:53 | Progress Note ---
Subjective: Patient is seen this am. She has been less responsive this am per nurses. She had ativan at approx 2am and had Zolpidem last night. Continues on biPap. Patient does not open her eyes or respond to talk or touch. Does not verbalize. She does pull her L leg up in response to sternal rub. Objective Vital signs: Temperature 97.6 F 10/24/17 08:22 Pulse Rate 91 10/24/17 08:22 Respiratory Rate 30 H 10/24/17 08:22 Blood Pressure 173/75 H 10/24/17 08:22 Pulse Oximetry 91 10/24/17 08:22 Height/Weight/BMI: Height 1.6 m Weight 57.7 kg Body Mass Index 21.2 - Constitutional Present: well nourished, well developed, obtunded - Routine HEENT Exam Head: Present: normocephalic, atraumatic - Routine Respiratory Exam Absent: wheezes Comments: coarse. On Bipap - Routine Cardiovascular Exam Present: RRR, no murmur - Routine Abdominal Exam Present: soft, non distended, non tender - Routine Extremities Exam Present: no edema, normal capillary refill - Routine Skin Exam Present: dry, warm - Routine Neurological Exam Absent: alert, oriented X3 - Routine Lymphatic Exam Lymphatic: Absent: adenopathy - Routine Psychiatric Exam Present: unable to assess Results - Labs CBC & Chem 7: 10/24/17 04:08 10/24/17 04:08 - ABG Interpretation ABG results: 10/24/17 10:26 ABG pH 7.469 H ABG pCO2 22 L ABG pO2 82.1 ABG HCO3 16.0 L ABG Total CO2 16.6 L ABG O2 Saturation 97.0 ABG Base Excess -6.2 L - Imaging and Cardiology Chest x-ray Additional comments: Date of Exam: 10/24/17 Indication: infiltrates PROCEDURE: XR chest 1V: Findings: The appearance of the lungs is slightly improved with decreased overall density of the diffuse airspace disease. No obvious new or worsening infiltrates. No pneumothorax. Small effusions. Heart size and mediastinal contours are stable. Impression: Slight improvement in appearance of the chest. Assessment and Plan (1) Pneumonia Current visit: Yes Status: Acute Assessment and Plan: Impression Altered LOC (onset 10/24/17) CAP vs atypical pneumonia vs pulmonary hemorrhage vs other... Acute hypoxic respiratory failure Acute febrile illness COPD Right shoulder pain - xray neg for acute findings. Likely arthritic. GERD Chronic pain (see pain management) Chronic constipation, narcotic related Rheumatoid arthritis Osteoporosis Tachycardia-POA Dehydration- POA At risk for tick or mosquito borne illness Tobacco dependency Plan Patient has had change in LOC. GCS 5 at time of my exam. ABG's obtained. Transfer to CCU. NPO. Continue cefepime (Day 5) and doxycycline (Day 6). DC vanc (had for total of 4 days). Band neut% improved 27%-->4%. CXR report indicated "slight improvement in appearance of chest." Solu-Medrol continues at 62.5mg q6hr. Continue Bipap. Dr. Rosen following. Echo is pending. Wt is up 5kg since admission. Start Lasix 40mg q 8 hrs for diuresis. Start D5W at 100ml/hr for hypernatremia (147). KCl 40mEq IV for hypokalemia (K 3.3). CBC, BMP, Mag in am. Case discussed with nursing, case management and Dr. Briones. DVT Prophylaxis: Lovenox GI Prophylaxis: Protonix Resuscitation Status: Full Code - Physician Narrative Physician: other (Teo Briones MD) Narrative: Date: 10/24/17 Time: 104510/24/17 Pt seen and evaluated. Agree with the above with addition of the following: Pupils dilated and very sluggish bilateral. Pt unresponsive to commands. Minimal movement with sternal rub. GCS 4. Mild coarse breath sounds. RRR without murmur. Acute encephalopathy: Unclear etiology. Pt received 1mg ativan and ambien last night. Give 0.2mg IV flumazenil, which did not resolve AMS. Her GCS is 4. Decision made to intubate, after discussing with DPOA. Will get Stat CT head. Check B12, ammonia, TSH. Hypernatremia: Will give 1L D5W. Recheck in am. Volume overload. CXR with bilateral fluffy infiltrates, suspect pulm edema given 5kg weight gain during hospitalization. Will diurese with lasix 40mg IV q8hrs. Kim placed. -Teo Briones MD. Hospital Course Summary Disclaimer: The visit summary below is not to be considered part of the above Progress Note. Hospital Course: 10/19/17 Admit to observation status. Will change antibiotic therapy to ceftriaxone and doxycycline to cover both community-acquired pneumonia as well as possible tickborne illness. She does not have encephalopathic symptoms per se, so we'll hold off on West Nile viral testing. If she does not improve on current therapy, could consider a tickborne illness panel and West Nile virus testing. We will obtain CT of the chest in the morning so that we can hydrate her overnight. Provide inhaled treatments, DuoNeb and budesonide. Mucinex DM BID to decrease cough/congestion. Acapella to help loosen secretions. I discussed with her the importance of using her home Advair to help maintain lung function. She understands and expresses agreement. We'll provide NicoDerm patch at her request due to tobacco abuse. RT for tobacco cessation. Continue supportive medications for her pain, GERD. Assess right shoulder x- rays in a.m., ice pack when necessary. Will add Movantik to help with her chronic constipation. This may be contributing to her abdominal symptoms. Hydration should help as well. Monitor telemetry with tachycardia. I expect this will improve with IV fluids. Monitor labs in the morning. DVT prophylaxis: Lovenox. Patient would like to establish with an alternate blade grinder. I have recommended that she discuss with her primary care provider, there are blade grinder at both via [facility] and with the [facility] group in [place] that could potentially assist her. 10/20/17 Respiratory decreasing - increased labor breathing and hypoxic, requiring oxygen. Will change admission status to inpatient due to continue care needs. CT chest reviewed - neoplasm is not mentioned in wide differential given by radiologist. Reports h/o exposure to mold prior to illness. Solu-Medrol 125mg IV now then 62.5mg q 8hr. O2 sats dropped to 87-88% on RA. Supplemental O2 initiated. Did need to start Vapotherm for respiratory support. Day 2 ceftriaxone and doxy. Discussed with Dr. Rosen. Will broaden coverage to include cefepime and vancomycin and continue doxy. D/C Rocephin. Continue DuoNeb, budesonide, acapella. Shoulder X-ray neg for acute injury. Solu-Medrol may help with her shoulder pain - suspect arthritic etiology. 10/21/17 CXR reviewed - concerning for pulmonary edema. DC IVF. Give Lasix 40 mg IV x1. Trial BiPAP. If no improvement, will need to intubate/transfer to CCU. Increase Solu-Medrol to Q6h. Continue cefepime and vanco and doxy. Continue Duoneb, budesonide, acapella. Trend trop. Consider echo. Repeat CXR in am. F/U on BiPAP 16/, FiO2 50%, tv >700 - pt tolerating well and improving. 10/22/17 Continue cefepime, vancomycin, and doxycycline for antimicrobial coverage. Solu- Medrol continues at 62.5mg q6hr. Going between Vapomyst and BiPAP for respiratory support. Will hold Lovenox as possible Bronch tomorrow. 10/23/17 Continue cefepime, vancomycin, and doxycycline for antimicrobial coverage. Solu- Medrol continues at 62.5mg q6hr. Going between Vapomyst and BiPAP for respiratory support. Add 10mEq KCl daily as potassium low. Weight with trend up - IVF have been stopped. Would hold on furosemide at this time, but may need. 10/24/17 - transfer to CCU Patient has had change in LOC. GCS 5 at time of my exam. ABG's obtained. Transfer to CCU. NPO. Continue cefepime (Day 5) and doxycycline (Day 6). DC vanc (had for total of 4 days). Band neut% improved 27%-->4%. CXR report indicated "slight improvement in appearance of chest." Solu-Medrol continues at 62.5mg q6hr. Continue Bipap. Dr. Rosen following. Echo is pending. Wt is up 5kg since admission. Start Lasix 40mg q 8 hrs for diuresis. Start D5W at 100ml/hr for hypernatremia (147). KCl 40mEq IV for hypokalemia (K 3.3).
[2017-10-24] MEDS ORDERED: D5W 1,000 ML IV SCH (11:10)
[2017-10-24] MEDS: FUROSEMIDE 40 MG/4 ML INJECTION IVP SCH ×2 (11:11→17:38)
[2017-10-24] MEDS ORDERED: FLUMAZENIL 0.5mg/5ml INJECTION IVP ONE (12:45)
--- NOTE | 2017-10-24 13:36 | XRay Report ---
Indication: post intubation PROCEDURE: XR chest 1V: Encounter: Initial Comparison: Radiographs from earlier today Findings: New endotracheal tube in place with the tip projecting 3.4 cm above the marcos. No pneumothorax. Bilateral hazy airspace infiltrates throughout both lungs are not significantly changed. No gross pleural effusion. Heart size and mediastinal contours are stable. Impression: New endotracheal tube tip appears appropriately positioned. .
--- NOTE | 2017-10-24 14:04 | CT Scan Report ---
Indication: Altered mental status PROCEDURE: CT head/brain wo con: Encounter: Initial Comparison: None Technique: Axial CT images through the head were performed without contrast. Iterative Reconstruction dose reducing technique was utilized. FINDINGS: The ventricles are of normal size, shape, and contour for the patient's age. There is focal low attenuation with loss of the trevizo-white distinction in the left occipital lobe. This is best seen on axial images 26 through 30. No evidence of acute hemorrhage. The brainstem, cerebellum, and cerebral hemispheres otherwise have a normal morphology and CT attenuation. There is no evidence of midline displacement. The visualized portions of the skull base, midface, and calvarium demonstrate no abnormality. The paranasal sinuses are well aerated and free of significant disease. The tympanic and mastoid cavities appear normal. 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 .
[2017-10-24] MEDS ORDERED: SUCCINYLCHOLINE 20mg/mL 10mL INJECTION IVP ONE (15:08)
[2017-10-24] MEDS: POTASSIUM CHLORIDE PREMIX 10 MEQ/100 ML BAG IV SCH ×4 (15:18→18:46)
[2017-10-24] MEDS ORDERED: ATROPINE 1 MG/10 ML SYRINGE IVP ONE (15:26)
--- NOTE | 2017-10-24 16:16 | Pulmonology Progress Note ---
Subjective Interval history: very lethargic today. still on BIPAP 21/12, rate 12 FiO2 30% ABG drawn. PCO2 is 28. Exam Vital signs: Temperature 97.6 F 10/24/17 08:22 Pulse Rate 91 10/24/17 15:03 Respiratory Rate 39 H 10/24/17 15:03 Blood Pressure 173/75 H 10/24/17 08:22 Pulse Oximetry 98 10/24/17 15:03 Inpatient Medications: Generic Name Dose Route Start Last Admin Trade Name Freq PRN Reason Stop Dose Admin Acetaminophen 500 mg 10/19/17 17:50 10/24/17 04:56 Tylenol PO 500 mg Q5H PRN Administration Discomfort Albuterol/Ipratropium 3 ml 10/19/17 16:48 10/20/17 13:10 Duoneb AEROSOL 3 ml Q4HR PRN Administration Shortness of air Albuterol/Ipratropium 3 ml 10/20/17 20:00 10/24/17 16:02 Duoneb AEROSOL 3 ml Q4HR CHRIS Administration Bisacodyl 10 mg 10/22/17 08:42 Dulcolax RECTALLY DAILY PRN Constipation Budesonide 0.5 mg 10/19/17 19:00 10/24/17 07:30 Pulmicort Inhalation AEROSOL 0.5 mg RTBID CHRIS Administration Enoxaparin Sodium 40 mg 10/21/17 09:00 10/22/17 08:42 Lovenox SQ 40 mg DAILY CHRIS Administration Furosemide 40 mg 10/24/17 10:45 10/24/17 11:11 Lasix 40 Mg/4 Ml IVP 40 mg Q8HR CHRIS Administration Gabapentin 800 mg 10/19/17 21:00 10/24/17 14:19 Neurontin PO Not Given TID CHRIS Doxycycline Hyclate 100 mg/ 250 mls @ 250 mls/hr 10/19/17 21:00 10/24/17 11: 44 Sodium Chloride IV Infused Q12HR CHRIS Infusion Cefepime HCl 1 gm/ Sodium 100 mls @ 200 mls/hr 10/20/17 14:30 10/24/17 15:13 Chloride IV Infused Q6H CHRIS Infusion Dextrose 1,000 mls @ 100 mls/hr 10/24/17 11:10 10/24/17 13:00 Dextrose 5% In Water IV 10/24/17 21:09 100 mls/hr .Q10H CHRIS Infusion Lactobacillus Acidophilus 1 cap 10/23/17 17:30 10/24/17 14:18 Culturelle PO Not Given TIDWM CHRIS Magnesium Hydroxide 30 ml 10/22/17 08:42 Mom PO DAILY PRN Constipation Methylprednisolone Sodium Succinate 62.5 mg 10/21/17 15:00 10/24/17 14:17 Solu-Medrol IVP 62.5 mg Q6HR CHRIS Administration Morphine Sulfate 4 mg 10/19/17 16:48 10/22/17 05:36 Morphine Sulfate Inj IVP 4 mg Q3H PRN Administration Pain Nicotine 14 mg 10/19/17 17:30 10/24/17 10:49 Nicoderm TD 14 mg DAILY CHRIS Administration Nicotine 1 removal 10/20/17 09:00 10/24/17 10:49 Nicotine Patch Removal TD 1 removal DAILY CHRIS Administration Nystatin 5 ml 10/23/17 01:08 10/24/17 14:18 Mycostatin PO Not Given QID CHRIS Oxycodone/Acetaminophen 1 tab 10/20/17 19:14 10/24/17 01:40 Percocet 10/325 PO 1 tab Q4H PRN Administration Pain Pantoprazole Sodium 40 mg 10/19/17 16:48 10/24/17 09:06 Protonix Iv IVP 40 mg DAILY CHRIS Administration Polyethylene Glycol 17 gm 10/22/17 09:00 10/24/17 10:30 Miralax PO Not Given DAILY [facility] Prochlorperazine Edisylate 10 mg 10/19/17 16:48 10/22/17 08:43 Compazine Iv IVP 10 mg Q6H PRN Administration Nausea &/or vomiting Sodium Chloride 10 - 80 ml 10/19/17 14:36 10/23/17 18:59 Iv Flush IVF 10 ml PRN PRN Administration Flushing Discontinued Medications Generic Name Dose Route Start Last Admin Trade Name Freq PRN Reason Stop Dose Admin Albuterol/Ipratropium 3 ml 10/19/17 16:03 10/19/17 16:13 Duoneb AEROSOL 10/19/17 16:04 3 ml O ONE Administration Albuterol/Ipratropium 3 ml 10/19/17 19:00 10/20/17 14:48 Duoneb AEROSOL 3 ml RTQID CHRIS Administration Baclofen 10 mg 10/19/17 16:48 10/23/17 17:01 Lioresal PO 10 mg TID PRN Administration PRN orders Flumazenil 0.2 mg 10/24/17 12:45 10/24/17 13:00 Romazicon IVP 10/24/17 12:46 0.2 mg O ONE Administration Furosemide 40 mg 10/21/17 12:16 10/21/17 12:26 Lasix 40 Mg/4 Ml IVP 10/21/17 12:17 40 mg DAILY ONE Administration Furosemide 40 mg 10/21/17 13:15 10/21/17 13:20 Lasix 40 Mg/4 Ml IVP 10/21/17 13:16 Not Given O ONE Guaifenesin/Dextromethorphan 1 tab 10/19/17 21:00 10/23/17 21:17 Mucinex Dm PO 1 tab BID CHRIS Administration Sodium Chloride 1,000 mls @ 999.9 mls/hr 10/19/17 14:35 10/19/17 16:00 Normal Saline IV 10/19/17 15:34 Infused .Q1H ONE Infusion Levofloxacin/Dextrose 750 mg in 150 mls @ 100 mls/hr 10/19/17 16:15 10/20/17 18:54 Levaquin 750 Mg Premix IV Not Given O CHRIS Sodium Chloride 1,000 mls @ 125 mls/hr 10/19/17 16:45 10/20/17 12:47 Normal Saline IV Infused .Q8H CHRIS Infusion Levofloxacin/Dextrose 750 mg in 150 mls @ 100 mls/hr 10/20/17 16:00 Levaquin 750 Mg Premix IV Q24H CHRIS Ceftriaxone Sodium 1 g/ Sodium 100 mls @ 200 mls/hr 10/19/17 18:00 10/19/17 18:59 Chloride IV Infused Q24H CHRIS Infusion Sodium Chloride 1,000 mls @ 75 mls/hr 10/20/17 12:00 10/21/17 12:27 Normal Saline IV Infused .[id number] CHRIS Infusion Vancomycin HCl 1,500 mg/ 500 mls @ 250 mls/hr 10/20/17 15:00 10/20/17 19:34 Sodium Chloride IV 10/20/17 15:01 Infused O ONE Infusion Vancomycin HCl 1,250 mg/ 250 mls @ 200 mls/hr 10/21/17 03:00 10/23/17 16:08 Sodium Chloride IV Not Given Q12H CHRIS Vancomycin HCl 1,000 mg/ 250 mls @ 250 mls/hr 10/23/17 17:00 10/24/17 06:30 Sodium Chloride IV Infused Q12H CHRIS Infusion Potassium Chloride 10 meq in 100 mls @ 100 mls/hr 10/24/17 11:10 10/24/17 15: 18 Potassium Chloride Premix IV 10/24/17 15:09 100 mls/hr Q1H CHRIS Administration Lorazepam 0.5 mg 10/20/17 13:05 10/24/17 01:56 Ativan Inj IVP 0.5 mg Q6H PRN Administration Meclizine HCl 25 mg 10/19/17 14:49 10/19/17 16:10 Antivert PO 10/19/17 14:50 25 mg ONCE ONE Administration Meclizine HCl 25 mg 10/19/17 16:48 Antivert PO Q6H PRN Dizziness Methylprednisolone Sodium Succinate 125 mg 10/20/17 12:21 10/20/17 13:01 Solu-Medrol IVP 10/20/17 12:22 125 mg O ONE Administration Methylprednisolone Sodium Succinate 62.5 mg 10/20/17 21:00 10/21/17 08:49 Solu-Medrol IVP 62.5 mg Q8HR CHRIS Administration Naloxegol 12.5 mg 10/20/17 18:02 10/22/17 06:04 Movantik PO 12.5 mg ACB CHRIS Administration Ondansetron HCl 4 mg 10/19/17 14:35 10/19/17 14:58 Zofran IVP 10/19/17 14:36 4 mg O ONE Administration Ondansetron HCl 8 mg 10/19/17 16:48 Zofran Odt Tablet PO TID PRN Nausea &/or vomiting Oxycodone/Acetaminophen 1 tab 10/19/17 16:48 10/20/17 18:37 Percocet 10/325 PO 1 tab Q6H PRN Administration Pain Pharmacy Consult 1 each 10/19/17 17:41 Pharmacy Consult - Fall Risk [facility] 10/19/17 17:42 ONE TIME ONE Potassium Chloride 10 meq 10/22/17 12:30 10/22/17 13:06 Micro-K 10 Meq Capsule PO 10/22/17 12:31 10 meq O ONE Administration Potassium Chloride 10 meq 10/24/17 17:30 Micro-K 10 Meq Capsule PO WB CHRIS Scopolamine 1 mg 10/19/17 16:48 10/19/17 17:20 Transderm-Scop Patch TD 10/19/17 16:49 1 mg Q3D CHRIS Administration Scopolamine 1 removal 10/22/17 17:00 10/22/17 18:18 Transderm-Scop Patch Removal TD 10/22/17 17:01 1 removal Q3D CHRIS Administration Vancomycin HCl 1 each 10/20/17 14:05 10/20/17 17:02 Pharmacy Consult - Vancomycin [facility] 10/20/17 14:06 1 each O ONE Administration Zolpidem Tartrate 10 mg 10/19/17 21:00 10/23/17 21:17 Ambien PO 10 mg HS CHRIS Administration - Constitutional no acute distress Comments: cachexia. chronically ill appearing. on BIPAP therapy - Routine HEENT Exam Head: Present: normocephalic, atraumatic Eye: Absent: conjunctival icterus - Routine Neck Exam Present: supple - Routine Respiratory Exam Present: decreased breath sounds, prolonged expiratory phase. Absent: wheezes - Routine Cardiovascular Exam Present: RRR - Routine Abdominal Exam Present: soft. Absent: guarding Results - Laboratory Findings Laboratory: Laboratory Results - last 48 hr 10/23/17 10/23/17 10/23/17 04:01 04:01 04:01 WBC 11.3 H RBC 3.19 L Hgb 10.7 L Hct 30.8 L MCV 96.6 MCH 33.5 MCHC 34.7 RDW Std Deviation 45.9 Plt Count 342 MPV 9.4 Immature Gran % (Auto) 1.6 H Neut % (Auto) 82.8 H Lymph % (Auto) 8.4 L Winston % (Auto) 6.9 Eos % (Auto) 0.2 Baso % (Auto) 0.1 Neut # (Auto) 9.4 H Lymph # (Auto) 1.0 Winston # (Auto) 0.8 Eos # (Auto) 0.0 Baso # (Auto) 0.0 Abs Immat Gran (auto) 0.18 H Neutrophils % (Manual) Band Neutrophils % Lymphocytes % (Manual) Monocytes % (Manual) Metamyelocytes % Neutrophils # (Manual) Band Neutrophils # Lymphocytes # (Manual) Monocytes # (Manual) Metamyelocytes # RBC Morph Comment Sample Site Alveolar Air PO2 ABG pH ABG pCO2 ABG pO2 ABG HCO3 ABG Total CO2 ABG O2 Saturation ABG Base Excess Modified Ender Test A-a Gradient a/A Ratio O2 Delivery Method Mode of Support Vent Rate FiO2 Tidal Volume PEEP Turbidity < 20 Sodium 147 H Potassium 3.4 L Chloride 120 H Carbon Dioxide 17 L Anion Gap 10 BUN 19.0 H Creatinine 0.8 GFR Calculation 75 BUN/Creatinine Ratio 24 Glucose 143 H Calculated Osmolality 286 H Calcium 8.1 L Magnesium Total Bilirubin 0.50 Icterus Index < 2 AST 39 H ALT 16 Alkaline Phosphatase 31 L Total Protein 6.5 Albumin 3.2 L Globulin 3.3 Albumin/Globulin Ratio 1.0 L Procalcitonin 0.38 Specimen Hemolysis < 15 Ur Collection Type Urine Color Urine Clarity Urine pH Ur Specific [place] Urine Protein Urine Glucose (UA) Urine Ketones Urine Occult Blood Urine Nitrate Urine Bilirubin Urine Urobilinogen Ur Leukocyte Esterase Urine RBC Urine WBC Urine Bacteria Ur Culture Indicated? Vancomycin Trough 10/23/17 10/24/17 10/24/17 14:47 04:08 04:08 WBC 10.2 RBC 3.23 L Hgb 10.5 L Hct 30.7 L MCV 95.0 MCH 32.5 MCHC 34.2 RDW Std Deviation 44.8 Plt Count 344 MPV 9.5 Immature Gran % (Auto) Not performed Neut % (Auto) Not performed Lymph % (Auto) Not performed Winston % (Auto) Not performed Eos % (Auto) Not performed Baso % (Auto) Not performed Neut # (Auto) Not performed Lymph # (Auto) Not performed Winston # (Auto) Not performed Eos # (Auto) Not performed Baso # (Auto) Not performed Abs Immat Gran (auto) Not performed Neutrophils % (Manual) 71.0 H Band Neutrophils % 4.0 Lymphocytes % (Manual) 14.0 L Monocytes % (Manual) 10.0 H Metamyelocytes % 1.0 H Neutrophils # (Manual) 7.2 Band Neutrophils # 0.4 Lymphocytes # (Manual) 1.4 Monocytes # (Manual) 1.0 H Metamyelocytes # 0.1 RBC Morph Comment Normal Sample Site Alveolar Air PO2 ABG pH ABG pCO2 ABG pO2 ABG HCO3 ABG Total CO2 ABG O2 Saturation ABG Base Excess Modified Ender Test A-a Gradient a/A Ratio O2 Delivery Method Mode of Support Vent Rate FiO2 Tidal Volume PEEP Turbidity < 20 Sodium 147 H Potassium 3.3 L Chloride 117 H Carbon Dioxide 19 L Anion Gap 11 BUN 18.0 H Creatinine 0.7 GFR Calculation 87 BUN/Creatinine Ratio 26 Glucose 150 H Calculated Osmolality 287 H Calcium 7.8 L Magnesium 2.5 H D Total Bilirubin Icterus Index < 2 AST ALT Alkaline Phosphatase Total Protein Albumin Globulin Albumin/Globulin Ratio Procalcitonin Specimen Hemolysis < 15 Ur Collection Type Urine Color Urine Clarity Urine pH Ur Specific [place] Urine Protein Urine Glucose (UA) Urine Ketones Urine Occult Blood Urine Nitrate Urine Bilirubin Urine Urobilinogen Ur Leukocyte Esterase Urine RBC Urine WBC Urine Bacteria Ur Culture Indicated? Vancomycin Trough 21.67 H* 10/24/17 10/24/17 10/24/17 10:26 14:12 14:15 WBC RBC Hgb Hct MCV MCH MCHC RDW Std Deviation Plt Count MPV Immature Gran % (Auto) Neut % (Auto) Lymph % (Auto) Winston % (Auto) Eos % (Auto) Baso % (Auto) Neut # (Auto) Lymph # (Auto) Winston # (Auto) Eos # (Auto) Baso # (Auto) Abs Immat Gran (auto) Neutrophils % (Manual) Band Neutrophils % Lymphocytes % (Manual) Monocytes % (Manual) Metamyelocytes % Neutrophils # (Manual) Band Neutrophils # Lymphocytes # (Manual) Monocytes # (Manual) Metamyelocytes # RBC Morph Comment Sample Site R radial L radial Alveolar Air PO2 178.3 239.6 ABG pH 7.469 H 7.451 H ABG pCO2 22 L 28 L ABG pO2 82.1 122.5 H ABG HCO3 16.0 L 19.1 L ABG Total CO2 16.6 L 20.0 L ABG O2 Saturation 97.0 99.0 H ABG Base Excess -6.2 L -3.8 L Modified Ender Test Positive A-a Gradient 96.3 117.1 a/A Ratio 46.0 51.1 O2 Delivery Method Bipap Adult vent Mode of Support Assist ctrl ventilat Vent Rate 53 12 FiO2 30 40 Tidal Volume 400 PEEP 5 Turbidity Sodium Potassium Chloride Carbon Dioxide Anion Gap BUN Creatinine GFR Calculation BUN/Creatinine Ratio Glucose Calculated Osmolality Calcium Magnesium Total Bilirubin Icterus Index AST ALT Alkaline Phosphatase Total Protein Albumin Globulin Albumin/Globulin Ratio Procalcitonin Specimen Hemolysis Ur Collection Type Urine, cath new Urine Color Yellow Urine Clarity Clear Urine pH 5.5 Ur Specific [place] <=1.005 L Urine Protein Negative Urine Glucose (UA) Negative Urine Ketones Negative Urine Occult Blood Trace-intact Urine Nitrate Negative Urine Bilirubin Negative Urine Urobilinogen 0.2 Ur Leukocyte Esterase Negative Urine RBC None seen Urine WBC None seen Urine Bacteria None seen Ur Culture Indicated? Cult not indicated Vancomycin Trough - Diagnostic Findings Chest x-ray: report reviewed, image reviewed Assessment and Plan (1) Pneumonia Status: Acute Assessment and plan: Severe bilateral pneumonia. Presented with significant left shift and bilateral infiltrates by CXR and CT. She has been treated with empiric antibiotics including Cefepime, Vanco and doxycycline. Overall slightly improved CXR although it isn't clear whether her overall condition is improved. Ok to deescalate antibiotics and start to wean steroids Discussed with DR Briones. I agree that pulmonary edema is a consideration and gentle diuresis is indicated. Add empiric corticosteroids in case of hypersensitivity pneumonitis, organizing pneumonia. Current Visit: Yes (2) Acute respiratory failure with hypoxia Status: Acute Assessment and plan: Presently on BIPAP 16/8 rate 12. FiO2 30%. Use as needed. She is tolerating this at the moment and O2 sat 99%. altered mental status does not seem to be related to her respiratory issues Current Visit: Yes - Assessment and Plan Plan: - Time Spent With Patient Total time spent is greater than 50% in coordination of care (as documented) at patient's floor/unit and/or counseling patient: less than 15 minutes
[2017-10-24] MEDS ORDERED: ACETAMINOPHEN 650 MG SUPPOSITORY PR PRN (21:10)
[2017-10-24 22:17] VITALS: TEMP 104.2
--- NOTE | 2017-10-24 22:21 | Transfer of Care Summary ---
Transfer Summary: Nursing contacted me at 9:09 pm to discuss patients current status. She is described as decerebrate and fixed and dilated pupils. Please see attending note for details of events. Patient is currently febrile with temp 105. When asked regarding change in status nursing notes that off going nurse reported these findings as well. Not clear when the patient's pupils became fixed or when the patient started posturing. A reference to check out from Dr. Briones indicated that the "CVA-has become unresponsive-waiting to determine if chance of mental improvement". I then contacted Dr. You who was consulted to address her pnuemonia and he was unaware of the CT results. All he was aware of was that the pateint had been intubated and that Dr. Briones was managing the ventilator. I contacted the patient's son Dl [phone] and he was informed by nursing that his mother had a stroke and he was flying to see her. I updated the nature of the stroke and he felt and I supported that the patient should be at a stroke center. I then contacted [facility] transfer center and was connected to Dr. Haji ( neuro curriculum manager) who was concerned that we were transferring a patient that was already brain . It was my opinion that given her normal start point up to this poiont that it would be best if she had direct access to neruology and neurointensivist. Currently the patient is being transferred to [facility] in critical condition. Dr. You is updated and supported the decision to transfer as well. The motivating reason for transfer is my neruological examination that demonstrated fixed and dilated pupils. no dolls eyes. with painful stimulation the patient had decerebrate posturing. Great expediency was taken to assess the concerns once I was made aware of them. Please refer to Dr. Hinton notes regarding any decisions made earlier in the day.
[2017-10-24 22:54] VITALS: PULSE 126; O2SAT 98
[2017-10-24 23:04] VITALS: RESP 39
[2017-10-24 23:17] VITALS: BP 133/75
--- NOTE | 2017-10-25 14:24 | Echocardiogram ---
DATE OF SERVICE 10/23/2017 INDICATION Tachycardia. Acute respiratory failure. TECHNICAL QUALITY Technically good 2-D, M-mode, Doppler echocardiographic images were submitted for interpretation. FINDINGS 1. CARDIAC CHAMBERS. Left atrium is borderline enlarged. All other cardiac chambers are normal in size. Aortic root diameter is normal. RV size and contractility appeared normal. 2. LEFT VENTRICLE. Wall thickness is normal. Wall motion analysis is normal. Systolic function is normal. EF measured 63%. Diastolic function assessment showed normal E/A ratio 1.4, E/E' ratio of 19--suggests a degree of diastolic dysfunction such as grade II/IV (pseudonormal pattern). 3. VALVES. Aortic and mitral valve exhibit minimal sclerotic changes. Valve opening is normal. Tricuspid and pulmonic valve structure and motion appeared normal. Normal valve excursion. 4. DOPPLER. Analysis shows mild regurgitation involving mitral, tricuspid and pulmonic valves, none of hemodynamic significance. Normal flow velocity measurements were present. 5. No evidence of pericardial effusion, intracardiac masses, thrombi, vegetations or shunts. 6. Systolic PA pressure is estimated at 42 mmHg. Flow velocity at LVOT level is normal at 1 m/sec. 7. No evidence of pericardial effusion, intracardiac masses, thrombi, vegetations or shunts. IMPRESSION 1. Borderline to mild left atrial enlargement. 2. Normal LV size and systolic function, EF of 63%. 3. Suggested diastolic dysfunction, grade II/IV. 4. Mild mitral regurgitation. 5. Mild tricuspid regurgitation. 6. Mild pulmonary hypertension. 7. Normal central venous pressure. MTDD
--- NOTE | 2017-10-28 17:44 | Discharge Summary ---
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 Severe bilateral PNA Acute hypoxic respiratory failure Pulmonary edema. COPD Right shoulder pain GERD Chronic constipation Rheumatoid arthritis Osteoporosis Tobacco dependency. Hypernatremia - Procedures Procedures: None - Laboratory Labs: 10/24/17 04:08 10/24/17 04:08 - Microbiology None - Radiology Radiology: CXR: Right upper lobe airspace disease could represent pneumonia. However given this opacity and the somewhat nodular areas of opacity in both lower lobes a neoplastic/metastatic etiology cannot be excluded particularly without available comparison. Recommend a chest CT for further evaluation. CT Chest: Diffuse groundglass opacity throughout both lung harris with a symmetric distribution. Differential considerations include pulmonary edema, atypical pneumonia, pulmonary hemorrhage, drug reaction, hypersensitivity pneumonitis and pulmonary alveolar proteinosis among others. Shouler x-ray: No acute osseous abnormality. CT head: Acute left [employer]ER[employer] TE[employer]ER territory infarct involving the left occipital lobe. - Pathology None History of Present Illness HPI: From HPI: "Colleen is a very pleasant 56-year-old female who presented to the ER today due to not feeling well. She reports that [place] , and has not been feeling well for at least the last week. She endorses generalized aches and pains, and has been having fever and chills. She reports generalized wheezing and nonproductive cough. She also reports persistent vertigo, nausea and vomiting and inability to tolerate by mouth very well. She does have chronic constipation, and has been several days since she's had a bowel movement. The emergency room, a chest x-ray was done, which is concerning for pneumonia versus atypical mass. She is being admitted for further evaluation and treatment. She does report, again, that she has not been feeling well for several days. Increasing shortness of air and cough. She does have a history of COPD, but does not use maintenance meds at home, and she does not routinely feel short of breath. She is not oxygen dependent. She continues to smoke half a pack per day. She does have chronic pain, and is seeing Dr. Slaughter in [place] in the past for rheumatology. She believes that she has been on immunosuppressive agents, but it has been greater than 2 years. She prefers to see an alternate auto rental clerk in the future if needed. She does feel that her pain and dysfunction from RA have worsened over the last several months. She does deal with chronic pain, and sees Dr. Kae Brar in [place]. She reports some fairly new and significant pain in her right shoulder. She reports that this started when she has been caring for her 2-year-old grandson, who is quite active. She reports that in attempting to carry him, she did fall against the wall and hurt her right shoulder. She does state the pain is worse at night, radiates down into her right arm and into her hand. Some occasional numbness in the hand, worse in the mornings upon awakening. No change to temperature or color. She does have difficulty rotating her arm past about 90. She has tried ice, which has given her some relief in pain. She also has a topical that she applies that has been prescribed by her pain management doctor. She denies any new neck pain or stiffness. No severe headache or sensitivity to light or sound. She does endorse fever of around 100. Again, she does feel short of air at times. She has some vague left sided chest wall discomfort. She endorses a headache. She has had "rushing in her ears". Again, she endorses nausea with vomiting, decreased appetite, and constipation, which is chronic for her she states no bowel movement for 4-5 days recently. She denies any lower extremity edema. She did have a tick bite earlier in the week. She had a small area of redness at the bite, but no systemic rash. She did not feel that the tick was on her for very long. She does have some visible mosquito bites present on her skin." Objective Vital signs: Temperature 104.2 F H 10/24/17 22:16 Pulse Rate 126 H 10/24/17 23:01 Respiratory Rate 39 H 10/24/17 23:01 Blood Pressure 133/75 10/24/17 23:00 Pulse Oximetry 98 10/24/17 23:01 Height/Weight/BMI: Height 5 ft 3 in Weight 57.7 kg Body Mass Index 21.2 Hospital Course This is a general summary of the patient's hospital course. For more details refer to the complete medical record. Acute encephalopathy and Acute CVA: Pt had an acute change in mental status during hospitalization. Last known normal mental status had been the night before. I was notified sometime mid- morning that patient was more somnolent than usual, that she had been given ativan around 0200 as well as ambien the night before. Given the last known normal mental status of the night prior, we were outside any potential window for tPA admin. Her GCS was around 4, and I was unable to awaken her with sternal rub. She did not follow commands, and her pupils were dilated and extremely sluggish in response to light. We gave a dose of flumazenil which did not change influence mental status. CT head obtained which showed evidence of a CVA in the left [employer]CRE[employer]ER[employer] TE[employer]ER territory. Discussed with family at bedside the results of the CT, and they reiterated the last known normal mental status per their knowledge was sometime before midnight. Due to altered GCS, pt was intubated, and later that evening transferred to the neuro ICU at [facility]. Acute hypoxic respiratory failure and severe bilateral PNA: Dr. Rosen (pul) consulted. Due to tick exposure with concern for tickborne illness, pt was covered with rocephin and doxycycline. Her bandemia improved. Pt was treated with steroids as well. Gentle diuresis was started due to concern for volume overload. Hypernatremia: D5W administered. Daily summary: 10/19/17 Admit to observation status. Will change antibiotic therapy to ceftriaxone and doxycycline to cover both community-acquired pneumonia as well as possible tickborne illness. She does not have encephalopathic symptoms per se, so we'll hold off on West Nile viral testing. If she does not improve on current therapy, could consider a tickborne illness panel and West Nile virus testing. We will obtain CT of the chest in the morning so that we can hydrate her overnight. Provide inhaled treatments, DuoNeb and budesonide. Mucinex DM BID to decrease cough/congestion. Acapella to help loosen secretions. I discussed with her the importance of using her home Advair to help maintain lung function. She understands and expresses agreement. We'll provide NicoDerm patch at her request due to tobacco abuse. RT for tobacco cessation. Continue supportive medications for her pain, GERD. Assess right shoulder x- rays in a.m., ice pack when necessary. Will add Movantik to help with her chronic constipation. This may be contributing to her abdominal symptoms. Hydration should help as well. Monitor telemetry with tachycardia. I expect this will improve with IV fluids. Monitor labs in the morning. DVT prophylaxis: Lovenox. Patient would like to establish with an alternate auto rental clerk. I have recommended that she discuss with her primary care provider, there are auto rental clerk at both via [facility] and with [facility] in [place] that could potentially assist her. 10/20/17 Respiratory decreasing - increased labor breathing and hypoxic, requiring oxygen. Will change admission status to inpatient due to continue care needs. CT chest reviewed - neoplasm is not mentioned in wide differential given by radiologist. Reports h/o exposure to mold prior to illness. Solu-Medrol 125mg IV now then 62.5mg q 8hr. O2 sats dropped to 87-88% on RA. Supplemental O2 initiated. Did need to start Vapotherm for respiratory support. Day 2 ceftriaxone and doxy. Discussed with Dr. Rosen. Will broaden coverage to include cefepime and vancomycin and continue doxy. D/C Rocephin. Continue DuoNeb, budesonide, acapella. Shoulder X-ray neg for acute injury. Solu-Medrol may help with her shoulder pain - suspect arthritic etiology. 10/21/17 CXR reviewed - concerning for pulmonary edema. DC IVF. Give Lasix 40 mg IV x1. Trial BiPAP. If no improvement, will need to intubate/transfer to CCU. Increase Solu-Medrol to Q6h. Continue cefepime and vanco and doxy. Continue Duoneb, budesonide, acapella. Trend trop. Consider echo. Repeat CXR in am. F/U on BiPAP 21/10, FiO2 50%, tv >700 - pt tolerating well and improving. 10/22/17 Continue cefepime, vancomycin, and doxycycline for antimicrobial coverage. Solu- Medrol continues at 62.5mg q6hr. Going between Vapomyst and BiPAP for respiratory support. Will hold Lovenox as possible Bronch tomorrow. 10/23/17 Continue cefepime, vancomycin, and doxycycline for antimicrobial coverage. Solu- Medrol continues at 62.5mg q6hr. Going between Vapomyst and BiPAP for respiratory support. Add 10mEq KCl daily as potassium low. Weight with trend up - IVF have been stopped. Would hold on furosemide at this time, but may need. 10/24/17 - transfer to CCU Patient has had change in LOC. GCS 5 at time of my exam. ABG's obtained. Transfer to CCU. NPO. Continue cefepime (Day 5) and doxycycline (Day 6). DC vanc (had for total of 4 days). Band neut% improved 27%-->4%. CXR report indicated "slight improvement in appearance of chest." Solu-Medrol continues at 62.5mg q6hr. Continue Bipap. Dr. Rosen following. Echo is pending. Wt is up 5kg since admission. Start Lasix 40mg q 8 hrs for diuresis. Start D5W at 100ml/hr for hypernatremia (147). KCl 40mEq IV for hypokalemia (K 3.3). Addendum entered and electronically signed by Brian Briones MD 10/25/17 11:51 : Addendum on note from 10/24: Pt on my evaluation, pt was not responding to commands or questions, with a GCS of 4. Note above incorrectly noted "alert and oriented x 3". In discussion with family, pt was last known to be at baseline mental status the night before on October 23. With GCS of 4, decision was made to intubate. Etiology for her neurologic decline was unclear at first, as pt had been given ativan around 0200 overnight. Her pupils were dilated with sluggish pupillary response. Flumazenil 0.2mg was given which did not improve her mental status. Stat CT head obtained, demonstrating acute left [employer]CRE[employer] THER[employer]Y TE[employer]ER territory infarct involving the left occipital lobe. Due to last known normal to be the evening/night prior, pt was out of the window for thrombolysis. I had a long discussion with family about the CT findings, and decided to obtain an MRI 10/25 to elucidate the extent of the CVA, and monitor off sedation on the vent. Overnight after assessment by the overnight physician, she was transferred to the neuro ICU at [facility]. Discussed with family today about the further evaluation at [facility], and the imaging shows a much larger CVA than initially noted on CT, and she has not had any meaningful clinical improvement, and she also had a "heart attack" per daughter. Time spent with patient: discharge greater than 30 minutes Resuscitation Status: Full Code Discharge Plan - Discharge Disposition Disposition: 02 To [facility] Acute Care *Condition: Critical Reason For Visit (Visit label in EMR): Pneumonia - Discharge Medications *Discharge Medications: No Action Baclofen [Lioresal] 10 mg PO TID PRN PRN Reason: Prn Orders Gabapentin [Neurontin] 800 mg PO TID Zolpidem [Ambien] 10 mg PO HS Ondansetron [Ondansetron Odt] 8 mg PO TID PRN PRN Reason: Nausea &/Or Vomiting Dexlansoprazole [Dexilant] 60 mg PO DAILY Oxycodone/Apap 10/325 [Percocet 10/325] 1 tab PO Q6H PRN PRN Reason: Pain - Discharge Packet/Instructions *Diet: NPO *Activity: Bedrest - Referrals/Follow Up - Patient Handouts Patient Handouts: Pneumonia (GEN) - Dismissal Complete Discharge Instructions are:: Complete Physician Narrative - Narrative Physician: other Attestation Narrative: Date: 10/28/17 Time: 2763
== END 2017-10-24 23:15 | disposition short-term general hospital (02) | DRG 208 ==
LOC: ED 13:56 → EDHOLD 13:56 → SUATTDRO 16:04 → MED 16:40 → SUATTDRO 10-20 16:51 → CCU 10-24 10:45
PROVIDERS: ADMIT Internal Medicine; ATTEND Family Medicine